=== PATIENT | female | born 1980 | race Caucasian/White ===

== ENCOUNTER → 2018-02-02 10:31 | Outpatient (CLI) | payer OTHER, MEDICAID, SELFPAY ==
[2018-02-02 14:42] LABS: Urine N gonorrhoeae NOT DETECTED
[2018-02-02 15:03] LABS: Urine Chlamydia NOT DETECTED
== END ==
PROVIDERS: Family Provider Physician Assistant; PCP Physician Assistant; Visit Provider Physician Assistant
DX: E03.9 Hypothyroidism, unspecified (principal); F32.9 Major depressive disorder, single episode, unspecified; Z78.9 Other specified health status
CPT/HCPCS: 87491; 87591

== ENCOUNTER 2018-03-06 09:45 | Outpatient (RCR) | payer OTHER, MEDICAID, SELFPAY ==
--- NOTE | 2018-01-23 10:56 | PT.OTN ---
Physical Therapy Treatment Note PT-OP-C Subjective Start: 01/23/18 09:23 Freq: Status: Active Protocol: Activity Type Activity Date Activity User E-Sign Co-Sign Detail Recorded Client Recorded Date Recorded By Document 01/23/18 10:37 [facility] [email or web address] 01/23/18 10:53 [facility] 01/23/18 10:37 OP-PT Subjective [Patient Comments] -Patient Comments Gita reports she has been traveling and is tight in the right upper trapezius region and feels that her tightness wakes her up at night and she needs to reposition her pillow to get comfortable -Patient Reported Progress Worse PT-OP-J Posture/Palpation/Skin Start: 01/23/18 09:23 Freq: Status: Active Protocol: Activity Type Activity Date Activity User E-Sign Co-Sign Detail Recorded Client Recorded Date Recorded By Document 01/23/18 10:37 [facility] [email or web address] 01/23/18 10:53 [facility] 01/23/18 10:37 Posture Evaluation [Position] Standing -Evaluation View Anterior -Shoulder Posture (L) Elevated PT-OP-Q Treatments Start: 01/23/18 09:23 Freq: Status: Active Protocol: Activity Type Activity Date Activity User E-Sign Co-Sign Detail Recorded Client Recorded Date Recorded By Document 01/23/18 10:37 [facility] [email or web address] 01/23/18 10:53 [facility] 01/23/18 10:37 Manual Therapy Treatment [Soft Tissue Mobilization] 1 -Mobilization Type Myofascial Release Strumming Trigger Point Release -Intensity/Depth Moderate -Body Position Prone -Comments STM in both prone and supine working to release the left upper trapezius and medial scapula border. Manual stretching of the scalenes and upper trapezius [Manual Techniques] 1 -Type manual stretching of the scalenes and upper trapzius, suboccipital release -Body Position Supine Self-Care/Home Management Treatment [Education] -Patient Education Posture -Other Education left upper shoulder higher than the right . Education given to work on home stretches to relax the left shoulder PT-OP-T Assessment and Plan Start: 01/23/18 09:23 Freq: Status: Active Protocol: Activity Type Activity Date Activity User E-Sign Co-Sign Detail Recorded Client Recorded Date Recorded By Document 01/23/18 10:37 [facility] [email or web address] 01/23/18 10:53 [facility] 01/23/18 10:37 Physical Therapy Assessment [Impairments] -Impairments Pain Posture ROM Soft Tissue Mobility [Assessment Summary] -Assessment Gita had increased tightness in her right upper trapezius today due to travel over 6 hours of driving. She was tight but responded well to treatment today. She is awaiting her MD appointment for further consult of her injury. Physical Therapy Plan [Frequency and Duration] -Frequency of Treatment 1x/Week [Therapeutic Interventions] -Therapeutic Interventions Home Exercise Program Manual Therapy Neuromuscular Re-education Patient/ Caregiver Education Self-Care/Home Management Soft Tissue Mobilization Therapeutic Exercises -Modalities Hot Packs Traction- Mechanical Ultrasound [Next Visit Focus/Plan] -Next Visit Plan focus on pain relief, postural education and relaxation of the upper trapezius and scalenes on the left while Gita awaits her MD visit. Current Diagnoses Cervicalgia (01/23/18)
--- NOTE | 2018-01-23 11:34 | PT.OTN ---
Addendum entered and electronically signed by Noy Tran, PT 01/23/18 15:22: Transition note: On January 23, 2018 our therapy services consisting of Speech, Occupational, and Physical Therapy transitioned from the [employer] electronic documentation system to a new [employer] electronic documentation system.?? All documentation prior to January 23 can be found under [employer] saved data. From January 23 forward all medical record documentation will be in [email or web address]. Original Note: Physical Therapy Treatment Note PT-OP-C Subjective Start: 01/23/18 09:23 Freq: Status: Active Protocol: Activity Type Activity Date Activity User E-Sign Co-Sign Detail Recorded Client Recorded Date Recorded By Document 01/23/18 10:37 [facility] [email or web address] 01/23/18 10:53 [facility] 01/23/18 10:37 OP-PT Subjective [Patient Comments] -Patient Comments Gita reports she has been traveling and is tight in the right upper trapezius region and feels that her tightness wakes her up at night and she needs to reposition her pillow to get comfortable -Patient Reported Progress Worse PT-OP-J Posture/Palpation/Skin Start: 01/23/18 09:23 Freq: Status: Active Protocol: Activity Type Activity Date Activity User E-Sign Co-Sign Detail Recorded Client Recorded Date Recorded By Document 01/23/18 10:37 [facility] [email or web address] 01/23/18 10:53 [facility] 01/23/18 10:37 Posture Evaluation [Position] Standing -Evaluation View Anterior -Shoulder Posture (L) Elevated PT-OP-Q Treatments Start: 01/23/18 09:23 Freq: Status: Active Protocol: Activity Type Activity Date Activity User E-Sign Co-Sign Detail Recorded Client Recorded Date Recorded By Document 01/23/18 10:37 [facility] [email or web address] 01/23/18 10:53 [facility] 01/23/18 10:37 Manual Therapy Treatment [Soft Tissue Mobilization] 1 -Mobilization Type Myofascial Release Strumming Trigger Point Release -Intensity/Depth Moderate -Body Position Prone -Comments STM in both prone and supine working to release the left upper trapezius and medial scapula border. Manual stretching of the scalenes and upper trapezius [Manual Techniques] 1 -Type manual stretching of the scalenes and upper trapzius, suboccipital release -Body Position Supine Self-Care/Home Management Treatment [Education] -Patient Education Posture -Other Education left upper shoulder higher than the right . Education given to work on home stretches to relax the left shoulder PT-OP-R Modalities Start: 01/23/18 09:23 Freq: Status: Active Protocol: Activity Type Activity Date Activity User E-Sign Co-Sign Detail Recorded Client Recorded Date Recorded By Document 01/23/18 10:37 [facility] [email or web address] 01/23/18 11:25 [facility] 01/23/18 10:37 Spinal Traction [Traction Treatment] Cervical -Method Mechanical Static -Patient Position Supine -Force Applied (newtons) 15 -Duration of Treatment (15-30 minutes 15 ) -Heating Pad Applied Yes Ultrasound Therapy [Treatment] Left Neck -Treatment Duration (minutes) 8 -Patient Position Prone -Coupling Medium Ultrasound Gel -Frequency Setting (mHz) 1 -Mode Setting Continuous -Intensity Setting (w/cm2) 1.5 -Patient Tolerance Good PT-OP-T Assessment and Plan Start: 01/23/18 09:23 Freq: Status: Active Protocol: Activity Type Activity Date Activity User E-Sign Co-Sign Detail Recorded Client Recorded Date Recorded By Document 01/23/18 10:37 [facility] [email or web address] 01/23/18 10:53 [facility] 01/23/18 10:37 Physical Therapy Assessment [Impairments] -Impairments Pain Posture ROM Soft Tissue Mobility [Assessment Summary] -Assessment Gita had increased tightness in her right upper trapezius today due to travel over 6 hours of driving. She was tight but responded well to treatment today. She is awaiting her MD appointment for further consult of her injury. Physical Therapy Plan [Frequency and Duration] -Frequency of Treatment 1x/Week [Therapeutic Interventions] -Therapeutic Interventions Home Exercise Program Manual Therapy Neuromuscular Re-education Patient/ Caregiver Education Self-Care/Home Management Soft Tissue Mobilization Therapeutic Exercises -Modalities Hot Packs Traction- Mechanical Ultrasound [Next Visit Focus/Plan] -Next Visit Plan focus on pain relief, postural education and relaxation of the upper trapezius and scalenes on the left while Gita awaits her MD visit. Current Diagnoses Cervicalgia (01/23/18)
--- NOTE | 2018-02-12 08:53 | PT.OTN ---
Current Diagnoses Cervicalgia (02/09/18) Physical Therapy Treatment Note PT-OP-A Visit Information Start: 01/23/18 09:23 Freq: Status: Active Protocol: Document 02/09/18 09:45 AMB (Rec: 02/12/18 07:16 AMB [email or web address]) Out-Patient Physical Therapy Visit Information Visit Information Visit Type Progress Note Visit Note 9 visits in this case were in 2017. Pt allowed 24 visits per calendar year. Visit Start Time 09:45 Visit Stop Time 10:40 Total Visit Minutes 55 Visit Number 22 Evaluation Information Evaluation Date 07/19/17 PT-OP-C Subjective Start: 01/23/18 09:23 Freq: Status: Active Protocol: Document 02/09/18 09:45 AMB (Rec: 02/12/18 08:50 AMB [email or web address]) OP-PT Subjective Patient Comments Patient Comments Pt finds traction very helpful , continues to have pain mostly right sided throughout cervical spine. PT-OP-J Posture/Palpation/Skin Start: 01/23/18 09:23 Freq: Status: Active Protocol: Document 01/23/18 10:37 [facility] (Rec: 01/23/18 10:53 [facility] [email or web address]) Posture Evaluation Position Standing Evaluation View Anterior Shoulder Posture (L) Elevated PT-OP-K Range of Motion Start: 01/23/18 09:23 Freq: Status: Active Protocol: Document 02/09/18 09:45 AMB (Rec: 02/12/18 08:50 AMB [email or web address]) Cervical Spine Range of Motion Cervical Spine Active Degrees Testing Position Sitting Flexion 40 Extension 54 Rotation Left 70 Rotation Right 70 Lateral Flexion Left 40 Lateral Flexion Right 35 Comments Right sided cervical pain with left cervical rotation PT-OP-Q Treatments Start: 01/23/18 09:23 Freq: Status: Active Protocol: Document 02/09/18 09:45 AMB (Rec: 02/12/18 08:50 AMB [email or web address]) Therapeutic Exercises Sitting Exercises 1 Sitting Exercise Name cervical flexion stretch Reps/Minutes 30 sec x 2 Manual Therapy Treatment Soft Tissue Mobilization 1 Mobilization Type Myofascial Release Strumming Trigger Point Release Intensity/Depth Moderate Body Position Supine Comments STM in both prone and supine working to release the left and right upper trapezius, levator scapulae and suboccipitals. Manual stretching of the scalenes and upper trapezius PT-OP-R Modalities Start: 01/23/18 09:23 Freq: Status: Active Protocol: Document 02/09/18 09:45 AMB (Rec: 02/12/18 07:30 AMB [email or web address]) Spinal Traction Traction Treatment Cervical Method Mechanical Static Patient Position Supine Force Applied (newtons) 15 Duration of Treatment (Minutes) 15 Heating Pad Applied Yes PT-OP-T Assessment and Plan Start: 01/23/18 09:23 Freq: Status: Active Protocol: Document 02/09/18 09:45 AMB (Rec: 02/12/18 07:28 AMB [email or web address]) Physical Therapy Assessment Goals 3 Impairment Posture Short Term Goal (STG) The patient will note reduction of headache frequency to 1x/week. STG Duration 4 weeks Negative Retoucher Goal (LTG) The patient will sit with good posture for 1 hour without an increase in neck pain. LTG Duration 8 weeks 2 Impairment Pain Short Term Goal (STG) The patient will sleep through the night without being woken secondary to pain. STG Duration 4 weeks Negative Retoucher Goal (LTG) The patietn will bike for 30 minutes wit neck pain of 3/10. LTG Duration 8 weeks 1 Impairment Range of motion Short Term Goal (STG) The patient will be independent with a HEP. STG Duration 4 weeks Negative Retoucher Goal (LTG) The patient show increased AROM to active flexion and extension to 60 degrees and active rotation to 70 degrees bilaterally. LTG Duration 8 weeks Progress Towards Goals Progress Towards Goals Progressing Toward Goals Assessment Summary Assessment The patient has been seen for 4 appointments in the last 2 months. She is hoping to see an orthopedic PA regarding her imaging results, and has that scheduled. She continues to have pain and tightness in her cervical spine, but her active range of motion was improved today. She will benefit from continued PT over the next few weeks to help the previously outlined goals, and then we will progress from there depending on her plan with the orthopedic group that she will be seeing. Physical Therapy Plan Frequency and Duration Frequency of Treatment 1x/Week Duration of Treatment 8 weeks Plan of Care Start Date 02/09/18 Plan of Care End Date 04/06/18 Therapeutic Interventions Therapeutic Interventions Aquatic Therapy Home Exercise Program Joint Mobilizations Manual Therapy Neuromuscular Re-education Self-Care/Home Management Therapeutic Activities Therapeutic Exercises Modalities Electric Stimulation Hot Packs Traction- Mechanical Ultrasound
--- NOTE | 2018-02-12 08:54 | PT.OPPOC ---
Current Diagnoses Cervicalgia (02/09/18) Provider Visit Care Team Role Provider Type Merline Garcia PA-C Attending Provider Advanced Practioner Clinician Family Provider Primary Care Provider Specialty: Family Practice Address: [address] [place] [address], [facility] Email: [email or web address] Plan Of Care PT-OP-T Assessment and Plan Start: 01/23/18 09:23 Freq: Status: Active Protocol: Document 02/09/18 09:45 AMB (Rec: 02/12/18 07:28 AMB [email or web address]) Physical Therapy Assessment Goals 3 Impairment Posture Short Term Goal (STG) The patient will note reduction of headache frequency to 1x/week. STG Duration 4 weeks Grocery Caddy Goal (LTG) The patient will sit with good posture for 1 hour without an increase in neck pain. LTG Duration 8 weeks 2 Impairment Pain Short Term Goal (STG) The patient will sleep through the night without being woken secondary to pain. STG Duration 4 weeks Grocery Caddy Goal (LTG) The patietn will bike for 30 minutes wit neck pain of 3/10. LTG Duration 8 weeks 1 Impairment Range of motion Short Term Goal (STG) The patient will be independent with a HEP. STG Duration 4 weeks Grocery Caddy Goal (LTG) The patient show increased AROM to active flexion and extension to 60 degrees and active rotation to 70 degrees bilaterally. LTG Duration 8 weeks Progress Towards Goals Progress Towards Goals Progressing Toward Goals Assessment Summary Assessment The patient has been seen for 4 appointments in the last 2 months. She is hoping to see an orthopedic PA regarding her imaging results, and has that scheduled. She continues to have pain and tightness in her cervical spine, but her active range of motion was improved today. She will benefit from continued PT over the next few weeks to help the previously outlined goals, and then we will progress from there depending on her plan with the orthopedic group that she will be seeing. Physical Therapy Plan Frequency and Duration Frequency of Treatment 1x/Week Duration of Treatment 8 weeks Plan of Care Start Date 02/09/18 Plan of Care End Date 04/06/18 Therapeutic Interventions Therapeutic Interventions Aquatic Therapy Home Exercise Program Joint Mobilizations Manual Therapy Neuromuscular Re-education Self-Care/Home Management Therapeutic Activities Therapeutic Exercises Modalities Electric Stimulation Hot Packs Traction- Mechanical Ultrasound Plan of Care Dates Plan of Care Start Date 02/09/18 Plan of Care End Date 04/06/18 Please Sign and Return: I have reviewed this Plan of Care and certify that the skilled therapy services above are required to meet the patient???s needs. Physician Signature Date Printed Name and Credentials
--- NOTE | 2018-02-22 15:50 | PT.OTN ---
Current Diagnoses Cervicalgia (02/22/18) Physical Therapy Treatment Note PT-OP-A Visit Information Start: 01/23/18 09:23 Freq: Status: Active Protocol: Document 02/22/18 15:42 [facility] (Rec: 02/22/18 15:50 [facility] [email or web address]) Out-Patient Physical Therapy Visit Information Visit Information Visit Type Treatment Note Visit Start Time 09:45 Visit Stop Time 10:45 Total Visit Minutes 60 Visit Number 22 PT-OP-C Subjective Start: 01/23/18 09:23 Freq: Status: Active Protocol: Document 02/09/18 09:45 AMB (Rec: 02/12/18 08:50 AMB [email or web address]) OP-PT Subjective Patient Comments Patient Comments Pt finds traction very helpful , continues to have pain mostly right sided throughout cervical spine. PT-OP-J Posture/Palpation/Skin Start: 01/23/18 09:23 Freq: Status: Active Protocol: Document 01/23/18 10:37 [facility] (Rec: 01/23/18 10:53 [facility] [email or web address]) Posture Evaluation Position Standing Evaluation View Anterior Shoulder Posture (L) Elevated PT-OP-K Range of Motion Start: 01/23/18 09:23 Freq: Status: Active Protocol: Document 02/09/18 09:45 AMB (Rec: 02/12/18 08:50 AMB [email or web address]) Cervical Spine Range of Motion Cervical Spine Active Degrees Testing Position Sitting Flexion 40 Extension 54 Rotation Left 70 Rotation Right 70 Lateral Flexion Left 40 Lateral Flexion Right 35 Comments Right sided cervical pain with left cervical rotation PT-OP-Q Treatments Start: 01/23/18 09:23 Freq: Status: Active Protocol: Document 02/09/18 09:45 AMB (Rec: 02/12/18 08:50 AMB [email or web address]) Therapeutic Exercises Sitting Exercises 1 Sitting Exercise Name cervical flexion stretch Reps/Minutes 30 sec x 2 Manual Therapy Treatment Soft Tissue Mobilization 1 Mobilization Type Myofascial Release Strumming Trigger Point Release Intensity/Depth Moderate Body Position Supine Comments STM in both prone and supine working to release the left and right upper trapezius, levator scapulae and suboccipitals. Manual stretching of the scalenes and upper trapezius PT-OP-R Modalities Start: 01/23/18 09:23 Freq: Status: Active Protocol: Document 02/09/18 09:45 AMB (Rec: 02/12/18 07:30 AMB [email or web address]) Spinal Traction Traction Treatment Cervical Method Mechanical Static Patient Position Supine Force Applied (Pounds) 15 Duration of Treatment (Minutes) 15 Heating Pad Applied Yes PT-OP-T Assessment and Plan Start: 01/23/18 09:23 Freq: Status: Active Protocol: Document 02/22/18 15:42 [facility] (Rec: 02/22/18 15:50 [facility] [email or web address]) Physical Therapy Assessment Assessment Summary Assessment Gita has a appointment March 05 with a ortho [facility]IS[facility] reganding imaging results. She does get relief with PT as she continues to have pain and tightness in her cervical spine Physical Therapy Plan Therapeutic Interventions Therapeutic Interventions Aquatic Therapy Home Exercise Program Joint Mobilizations Manual Therapy Neuromuscular Re-education Self-Care/Home Management Therapeutic Activities Therapeutic Exercises Modalities Electric Stimulation Hot Packs Traction- Mechanical Ultrasound Next Visit Focus/Plan Next Visit Plan reassess next visit following Gita's appointment with the ortho [facility] Please Sign and Return: I have reviewed this Plan of Care and certify that the skilled therapy services above are required to meet the patient?s needs. Physician Signature Date Printed Name and Credentials Clinical Instructor Signature Printed Name and Credentials
--- NOTE | 2018-03-06 11:48 | PT.OTN ---
Current Diagnoses Cervicalgia (03/06/18) Physical Therapy Treatment Note PT-OP-A Visit Information Start: 01/23/18 09:23 Freq: Status: Active Protocol: Document 03/06/18 11:41 [facility] (Rec: 03/06/18 11:48 [facility] [email or web address]) Out-Patient Physical Therapy Visit Information Visit Information Visit Type Treatment Note Visit Start Time 09:45 Visit Stop Time 10:45 Total Visit Minutes 60 Visit Number 24 PT-OP-C Subjective Start: 01/23/18 09:23 Freq: Status: Active Protocol: Document 03/06/18 11:41 [facility] (Rec: 03/06/18 11:48 [facility] [email or web address]) OP-PT Subjective Patient Comments Patient Comments Gita reports she saw Stalin PERALES and will be scheduled for cortisone injection in her cervical spine PT-OP-J Posture/Palpation/Skin Start: 01/23/18 09:23 Freq: Status: Active Protocol: Document 01/23/18 10:37 [facility] (Rec: 01/23/18 10:53 [facility] [email or web address]) Posture Evaluation Position Standing Evaluation View Anterior Shoulder Posture (L) Elevated PT-OP-K Range of Motion Start: 01/23/18 09:23 Freq: Status: Active Protocol: Document 02/09/18 09:45 AMB (Rec: 02/12/18 08:50 AMB [email or web address]) Cervical Spine Range of Motion Cervical Spine Active Degrees Testing Position Sitting Flexion 40 Extension 54 Rotation Left 70 Rotation Right 70 Lateral Flexion Left 40 Lateral Flexion Right 35 Comments Right sided cervical pain with left cervical rotation PT-OP-Q Treatments Start: 01/23/18 09:23 Freq: Status: Active Protocol: Document 03/06/18 11:41 [facility] (Rec: 03/06/18 11:48 [facility] [email or web address]) Manual Therapy Treatment Soft Tissue Mobilization 1 Mobilization Type Myofascial Release Strumming Trigger Point Release Intensity/Depth Moderate Body Position Supine Comments STM in both prone and supine working to release the left and right upper trapezius, levator scapulae and suboccipitals. Manual stretching of the scalenes and upper trapezius PT-OP-R Modalities Start: 01/23/18 09:23 Freq: Status: Active Protocol: Document 03/06/18 11:41 [facility] (Rec: 03/06/18 11:48 [facility] [email or web address]) Spinal Traction Traction Treatment Cervical Method Mechanical Static Patient Position Supine Force Applied (Pounds) 15 Duration of Treatment (Minutes) 15 Heating Pad Applied Yes Ultrasound Therapy Treatment Left Neck Treatment Duration (minutes) 8 Patient Position Prone Coupling Medium Ultrasound Gel Frequency Setting (mHz) 1 Mode Setting Continuous Intensity Setting (w/cm2) 1.5 PT-OP-T Assessment and Plan Start: 01/23/18 09:23 Freq: Status: Active Protocol: Document 03/06/18 11:41 [facility] (Rec: 03/06/18 11:48 [facility] [email or web address]) Physical Therapy Assessment Assessment Summary Assessment Gita will put her appointments on hold as she has a new job. She will follow up with us after her cortisone injection if she would like further PT Physical Therapy Plan Frequency and Duration Frequency of Treatment 1x/Week Duration of Treatment 8 weeks Plan of Care Start Date 02/09/18 Plan of Care End Date 04/06/18 Therapeutic Interventions Therapeutic Interventions Aquatic Therapy Home Exercise Program Joint Mobilizations Manual Therapy Neuromuscular Re-education Self-Care/Home Management Therapeutic Activities Therapeutic Exercises Modalities Electric Stimulation Hot Packs Traction- Mechanical Ultrasound Next Visit Focus/Plan Next Visit Plan reassess Gita's cervical spine following her cortisone injections Please Sign and Return: I have reviewed this Plan of Care and certify that the skilled therapy services above are required to meet the patient?s needs. Physician Signature Date Printed Name and Credentials Clinical Instructor Signature Printed Name and Credentials
--- NOTE | 2018-10-02 10:20 | PT.OPDS ---
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 Primary Care Provider Specialty: Family Practice Address: [address] [place] [address], [facility] Email: [email or web address] Visit Number Visit Number [id number] Discharge Summary PT-OP-C Subjective Start: 01/23/18 09:23 Freq: Status: Active Protocol: Document 03/06/18 11:41 AMH (Rec: 03/06/18 11:48 AMH [email or web address]) OP-PT Subjective Patient Comments Patient Comments Gita reports she saw Stalin PERALES and will be scheduled for cortisone injection in her cervical spine PT-OP-J Posture/Palpation/Skin Start: 01/23/18 09:23 Freq: Status: Active Protocol: Document 01/23/18 10:37 AMH (Rec: 01/23/18 10:53 AMH [email or web address]) Posture Evaluation Position Standing Evaluation View Anterior Shoulder Posture (L) Elevated PT-OP-K Range of Motion Start: 01/23/18 09:23 Freq: Status: Active Protocol: Document 02/09/18 09:45 AMB (Rec: 02/12/18 08:50 AMB [email or web address]) Cervical Spine Range of Motion Cervical Spine Active Degrees Testing Position Sitting Flexion 40 Extension 54 Rotation Left 70 Rotation Right 70 Lateral Flexion Left 40 Lateral Flexion Right 35 Comments Right sided cervical pain with left cervical rotation PT-OP-T Assessment and Plan Start: 01/23/18 09:23 Freq: Status: Active Protocol: Document 10/02/18 10:13 AMB (Rec: 10/02/18 10:13 AMB [email or web address]) Physical Therapy Assessment Assessment Summary Assessment Gita has not been seen in PT since March 06, 2018. Therefore she is discharged. At the time of her last visit she was getting relief from PT but continued to have neck pain. Physical Therapy Plan Discharge Physical Therapy Discharge Reasons No Longer Attending PT
== END 2018-11-14 09:02 ==
LOC: PHYS 09:45
PROVIDERS: Family Provider Physician Assistant; PCP Physician Assistant; Visit Provider Physician Assistant
DX: M54.2 Cervicalgia (principal)
CPT/HCPCS: 97012; 97035; 97140

== ENCOUNTER → 2018-03-06 14:17 | Outpatient (CLI) | payer OTHER, MEDICAID, SELFPAY ==
--- NOTE | 2018-03-06 14:20 | DI.MG.S_ITS ---
UNILATERAL LEFT DIGITAL DIAGNOSTIC MAMMOGRAM 3D/2D WITH ADDITIONAL VIEWS: 03/06/2018 CLINICAL: Patient returns for a 6 month follow up of the left breast. Post biopsy. Comparison is made to exams dated: 08/10/2017 mammogram and 07/24/2017 mammogram - [facility]. The tissue of the left breast is extremely dense, which lowers the sensitivity of mammography. There is a stable 9 mm oval equal density mass with a circumscribed margin in the left breast at 9 o'clock anterior depth. No other significant masses or calcifications are seen in the breast. IMPRESSION: PROBABLY BENIGN The stable 9 mm oval equal density mass in the left breast is probably benign. A follow-up mammogram in 6 months is recommended. Recommend ultrasound of the patient's further masses seen on ultrasound only on her previous study. This exam was interpreted at Station ID: [id number]. NOTE: For mammograms, a report in lay terms will be sent to the patient. Approximately 15% of breast malignancies will not be visualized mammographically. In the management of a palpable breast mass, a negative mammogram must not discourage biopsy of a clinically suspicious lesion. Electronically Signed By: Chicho Moss M.D. cj/:03/07/2018 08:01:09 Entry: - 03/07/2018 08:01:09 letter sent: Need Ultrasound ACR BI-RADS Category 3: Probably benign [id number]
== END ==
PROVIDERS: Family Provider Physician Assistant; PCP Physician Assistant; Visit Provider Physician Assistant
DX: R92.8 Other abnormal and inconclusive findings on diagnostic imaging of breast (principal); N63.20 Unspecified lump in the left breast, unspecified quadrant
CPT/HCPCS: 77065; G0279

== ENCOUNTER → 2018-03-09 07:53 | Outpatient (CLI) | payer OTHER, MEDICAID, SELFPAY ==
--- NOTE | 2018-03-09 | DI.US.S_ITS ---
ULTRASOUND OF LEFT BREAST: 03/09/2018 CLINICAL: Patient returns for a 6 month follow up of the left breast. Comparison is made to exams dated: 07/27/2017 ultrasound, 03/06/2018 mammogram, 08/10/2017 ultrasound biopsy, and 08/10/2017 mammogram - [facility]. Color flow ultrasound of the left breast was performed. Macias scale images of the real-time examination were reviewed. There is a 1.3 cm x 0.5 cm x 1.1 cm irregular mass with a circumscribed margin in the left breast at 12 o'clock middle depth 4 cm from the nipple. This irregular mass is hypoechoic. This abnormality is not significantly changed. There also is a 6 mm oval mass with a circumscribed margin in the left breast central to the nipple in the retroareolar region. This oval mass is hypoechoic. This abnormality is not significantly changed. Additionally, there is an 8 mm oval mass with a circumscribed margin in the left breast at 12 o'clock in the retroareolar region. This oval mass is hypoechoic. This abnormality is not significantly changed. IMPRESSION: PROBABLY BENIGN - FOLLOW-UP RECOMMENDED The 1.3 cm x 0.5 cm x 1.1 cm irregular mass in the left breast at 12 o'clock middle depth is probably benign. Follow-up mammogram and ultrasound in 6 months is recommended. The 6 mm oval mass in the left breast central to the nipple in the retroareolar region is probably benign. Follow-up mammogram and ultrasound in 6 months is recommended. The 8 mm oval mass in the left breast at 12 o'clock in the retroareolar region is probably benign. Follow-up mammogram and ultrasound in 6 months is recommended. A follow-up mammogram and an ultrasound in 6 months is recommended to demonstrate stability. This exam was interpreted at Station ID: [id number]. Electronically Signed By: Chicho escalante/lalo:03/09/2018 12:11:39 letter sent: Followup Recommended Ultrasound BI-RADS: 3 Probably benign
== END ==
PROVIDERS: Family Provider Physician Assistant; PCP Physician Assistant; Visit Provider Physician Assistant
DX: R92.8 Other abnormal and inconclusive findings on diagnostic imaging of breast (principal); N63.21 Unspecified lump in the left breast, upper outer quadrant
CPT/HCPCS: 76642

== ENCOUNTER → 2018-07-12 11:37 | Outpatient (CLI) | payer OTHER, MEDICAID, SELFPAY ==
[2018-07-12 14:16] LABS: Urine N gonorrhoeae NOT DETECTED
[2018-07-12 14:21] LABS: Urine Chlamydia NOT DETECTED
== END ==
PROVIDERS: Visit Provider Physician Assistant
DX: N89.8 Other specified noninflammatory disorders of vagina (principal); N94.9 Unspecified condition associated with female genital organs and menstrual cycle
CPT/HCPCS: 87210; 87491; 87591

== ENCOUNTER → 2018-07-27 16:42 | Outpatient (CLI) | payer OTHER, MEDICAID, SELFPAY ==
[2018-07-27 17:53] LABS: Hemoglobin 11.7 g/dL (12.0-16.0); Mean Corpuscular HGB Conc 33.6 % (30-36); Mean Corpuscular Hemoglobin 30.5 PG (26-34); Mean Corpuscular Volume 90.8 fL (80-100); Platelet Count 280 X10^3/uL (150-400); Red Blood Cell Count 3.85 X10^6/uL (4.0-5.2); Red Cell Distribution Width 13.9 % (11.6-14.8); White Blood Cell Count 4.8 X10^3/uL (4.5-11.0)
[2018-07-27 18:07] LABS: Alanine Aminotransferase 18 IU/L (9-52); Albumin 4.6 g/dL (3.5-5.0); Albumin Globulin Ratio 1.8 (1.0-2.8); Alkaline Phosphatase 44 U/L (38-126); Aspartate Aminotransferase 19 IU/L (14-36); BUN Creatinine Ratio 16.7 (6-22); Bilirubin Total 0.3 mg/dL (0.2-1.3); Blood Urea Nitrogen 10 mg/dL (7-17); Calcium 9.6 mg/dL (8.4-10.2); Carbon Dioxide 27 mmol/L (22-32); Chloride 101 mmol/L (98-107); Estimated Glomerular Filt Rate > 60.0 mL/min (>60); Globulin 2.6 g/dL (1.7-4.1); Glucose 81 mg/dL (70-100); HEMOLYSIS < 15 (0-50); Potassium 4.1 mmol/L (3.4-5.1); Sodium 143 mmol/L (137-145); Total Protein 7.2 g/dL (6.3-8.2)
[2018-07-27 18:24] LABS: Free T4, Direct Thyroxine 0.92 ng/dL (0.78-2.19)
[2018-07-27 18:25] LABS: Vitamin D 25 Hydroxy (D3) 35.4 ng/mL (30.0-100.0)
[2018-07-27 18:38] LABS: Thyroid Stimulating Hormone 0.26 uIU/mL (0.47-4.68)
[2018-07-27 18:40] LABS: Hepatitis B Surface Antigen NEGATIVE s/c (NEGATIVE)
[2018-07-27 18:42] LABS: Ferritin 30.4 ng/mL (6.27-137)
[2018-07-27 18:58] LABS: HIV 1 and 2 Antibody NEGATIVE (NEGATIVE); Hep C Virus Ab w/Reflex Quant NEGATIVE s/c (NEGATIVE)
[2018-07-31 14:59] LABS: Hepatitis B Core Antibody Nonreactive (Nonreactive)
[2018-07-31 15:01] LABS: Hepatitis B Surf Ab Qualitativ Nonreactive (Nonreactive)
== END ==
DX: Z11.3 Encounter for screening for infections with a predominantly sexual mode of transmission (principal); E55.9 Vitamin D deficiency, unspecified
CPT/HCPCS: 36415; 80053; 82306; 82728; 84439; 84443; 85027; 86703; 86704; 86706; 86803; 87340

== ENCOUNTER → 2018-10-16 16:40 | Outpatient (CLI) | payer OTHER, MEDICAID, SELFPAY | PROVIDERS: Visit Provider Physician Assistant | DX: N89.8 Other specified noninflammatory disorders of vagina (principal) | CPT/HCPCS: 87086; 87210 ==

== ENCOUNTER → 2018-10-24 14:09 | Outpatient (CLI) | payer OTHER, MEDICAID, SELFPAY ==
--- NOTE | 2018-10-24 | DI.MG.S_ITS ---
BILATERAL DIGITAL DIAGNOSTIC MAMMOGRAM 3D/2D: 10/24/2018 CLINICAL: Patient returns for a 6 month follow up of the left breast. Due for bilateral imaging. Comparison is made to exams dated: 03/06/2018 mammogram, 08/10/2017 mammogram, and 07/24/2017 mammogram - [facility]. The tissue of both breasts is extremely dense, which lowers the sensitivity of mammography. There is a stable focal asymmetry in the left breast at 9 o'clock anterior depth. No other significant masses, calcifications, or other findings are seen in either breast. IMPRESSION: INCOMPLETE: NEEDS ADDITIONAL IMAGING EVALUATION The stable focal asymmetry in the left breast is indeterminate. A targeted ultrasound of the left breast is recommended and will be performed immediately following this exam. This exam was interpreted at Station ID: [id number]. NOTE: For mammograms, a report in lay terms will be sent to the patient. Approximately 15% of breast malignancies will not be visualized mammographically. In the management of a palpable breast mass, a negative mammogram must not discourage biopsy of a clinically suspicious lesion. Electronically Signed By: Fabiana James M.D. lk/:10/24/2018 14:55:00 letter sent: Additional Imaging Needed ACR BI-RADS Category 0: Incomplete [id number]
--- NOTE | 2018-10-24 | DI.US.S_ITS ---
ULTRASOUND OF LEFT BREAST: 10/24/2018 CLINICAL: 6 month follow-up of left breast masses. Comparison is made to exams dated: 10/24/2018 mammogram, 03/09/2018 ultrasound, 03/06/2018 mammogram, 08/10/2017 ultrasound biopsy, 08/10/2017 mammogram, and 07/27/2017 ultrasound [facility]. Color flow ultrasound of the left breast was performed on the areas of interest. Macias scale images of the real-time examination were reviewed. There are multiple hypodense circumscribed lobulated mass lesions within the left breast includin. A 1.0 x 0.5 x 1.0 cm lobulated hypoechoic mass at 12:00, 4 cm from the nipple. This measured 1.3 x 0.5 x 1.1 cm on the prior study dated 03/09/18. 2. A 0.8 x 0.4 x 0.8 cm mass at 12:00 in the retroareolar region. This measured 6 mm in diameter on the prior study. 3. A 1.1 x 0.5 x 0.8 cm hypoechoic lobulated mass in the retroareolar region which measured 8 mm on the prior study. 4. An anechoic 0.8 x 0.4 x 0.6 cm mass in the retroareolar region which was not visualized on the prior study and likely represents a simple cyst. 5. A 0.9 x 0.4 x 0.6 cm mass in the left breast at 9:00, not visualized on the prior ultrasound. This likely represents the mammographic abnormality which is stable when compared with the prior mammogram dated 03/06/18. 6. A 0.9 x 0.2 x 0.5 cm hypoechoic lobulated mass at 9:00 4 cm from the nipple. This area was not interrogated on the prior study. IMPRESSION: PROBABLY BENIGN 1. Multiple hypoechoic lobulated mass lesions as described above, some of which are slightly decreased in size when compared with the prior ultrasound dated 03/09/18, some of which were previously not characterized by ultrasound, and one of which likely corresponds with the mammographic finding. These have the sonographic appearance of fibroadenomas. Additionally, 2 of these masses have been previously biopsied and pathology demonstrated benign fibroadenomas. 6 month followup ultrasound is recommended to ensure stability of these findings. 2. Simple cyst in the retroareolar region which is benign. This exam was interpreted at Station ID: [id number]. Electronically Signed By: Fabiana James M.D. lk/:10/24/2018 16:46:01 letter sent: Followup Recommended Ultrasound BI-RADS: 3 Probably benign
== END ==
PROVIDERS: Visit Provider Psychiatry & Neurology Neurology
DX: R92.8 Other abnormal and inconclusive findings on diagnostic imaging of breast (principal); N64.4 Mastodynia; D24.2 Benign neoplasm of left breast; N60.02 Solitary cyst of left breast; N63.20 Unspecified lump in the left breast, unspecified quadrant
CPT/HCPCS: 76642; 77066; G0279

== ENCOUNTER → 2019-03-08 15:04 | Outpatient (CLI) | payer OTHER, MEDICAID, SELFPAY ==
[2019-03-08 19:07] LABS: Urine N gonorrhoeae NOT DETECTED
[2019-03-08 19:09] LABS: Urine Chlamydia NOT DETECTED
== END ==
PROVIDERS: PCP Nurse Practitioner; Visit Provider Physician Assistant
DX: R30.0 Dysuria (principal); Z20.2 Contact with and (suspected) exposure to infections with a predominantly sexual mode of transmission
CPT/HCPCS: 87210; 87491; 87591

== ENCOUNTER 2019-04-03 10:17 | Emergency (ER) | payer OTHER, MEDICAID, SELFPAY ==
[2019-04-03 10:18] VITALS: BP 122/76; PULSE 80; RESP 16; TEMP 37.1; O2SAT 100
--- NOTE | 2019-04-03 10:45 | ED.HA ---
HPI - Headache General Chief Complaint: Headache Stated Complaint: Hit head on monday, pressure and headaches Time Seen by Provider: 04/03/19 10:25 Source: patient Mode of arrival: ambulatory Limitations: no limitations History of Present Illness HPI Narrative: This is a 38-year-old female who comes to the emergency department with complaint of hitting her head on Monday. She states that a box field with books in her storage area, she was trying to move it and it hit her on the left side of the and then slid down hit her left thigh landed on the floor. She states it did hurt a little bit, she felt a little dazed, little story. She did not lose consciousness. She has not had any syncopal episodes. Since then she has had some mild headaches, she has had little bit discomfort and swelling on the left parietal area. Today she was putting on her glasses and felt the arm of her glasses brushing against the hematoma a cause discomfort so she felt she should come in. Patient has not had any major vision changes. She sometimes feels like it is a little blurry. She has only felt nauseated when she wakes up and feels like she needs to eat. She eats food she does not feel nauseated, she has not had any vomiting. She denies any neck pain, no chest pain no shortness of breath. Other symptoms. She does have small bruise on her right leg. Patient states she is otherwise healthy, she takes Topamax and fluoxetine for depression she is not on any blood thinners. No prior surgeries. She has felt very tired been sleeping more than normal. That has felt a little bit fatigued. Related Data Home Medications Medication Instructions Recorded Confirmed cyclobenzaprine 10 mg PO TID PRN 04/03/19 04/03/19 fluoxetine 20 mg PO BID 04/03/19 04/03/19 topiramate 12.5 - 25 mg PO QAM 04/03/19 04/03/19 topiramate 50 mg PO BEDTIME 04/03/19 04/03/19 Previous Rx's Medication Instructions Recorded [massage] #12 12/02/16 epinephrine 0.3 mg/0.3 mL 0.3 mg IM PRN PRN #1 ea 03/23/18 injection, auto-injector fluticasone propionate 50 2 spray NASAL DAILY #9.9 gram 03/18/19 mcg/actuation nasal spray,suspension Allergies Allergy/AdvReac Type Severity Reaction Status Date / Time latex [LATEX] Allergy Unknown Verified 04/03/19 10:24 hydrocodone [From Vicodin] Allergy Verified 04/03/19 10:24 SULFA Allergy Unknown Uncoded 07/12/18 11:01 Review of Systems Review of Systems ROS Unobtainable: All systems reviewed & are unremarkable except as noted in HPI and below Constitutional Denies chills, Denies fever(s), Reports headache(s), Reports increased appetite, Denies lethargy, Denies poor appetite and Denies weakness Eyes Reports blurry vision (Very mild) ENT Ears, Nose, Mouth, and Throat: Denies vertigo, Denies dizziness, Reports headache(s) and Denies neck pain Cardiovascular Denies chest pain, Denies syncope, Denies irregular heart rhythm, Denies lightheadedness, Denies palpitations, Denies dyspnea and Denies dyspnea on exertion Respiratory Denies chest congestion, Denies dyspnea and Denies dyspnea on exertion Gastrointestinal Gastrointestinal: Denies abdominal pain, Denies change in bowel habits, Denies diarrhea, Denies nausea and Denies vomiting Genitourinary Denies hematuria, Denies flank pain, Denies urinary incontinence and Denies urinary urgency Musculoskeletal Denies back pain, Denies arthralgias, Denies limited range of motion, Denies neck pain, Denies numbness, Denies tingling and Reports other (small bruise on right leg.) Integumentary/Breasts Denies rash, Denies unusual bruising and Reports other (lump on scalp.) Neurologic Denies vertigo, Denies dizziness, Denies syncope, Reports headache(s), Denies numbness, Denies tingling and Denies weakness Endocrine Denies palpitations [facility] Medical History Anxiety (Chronic Unknown) Bipolar disorder (Chronic ~2012) Depression (Chronic Unknown) Hyperthyroidism (Chronic Unknown) PTSD (post-traumatic stress disorder) (Chronic Unknown) Plantar fasciitis (Chronic 02/2017) Tear meniscus knee (Chronic Unknown) Abnormal Pap smear of cervix (Resolved 2003) Whiplash (Resolved 04/2017) Family History (Updated 03/04/18 @ 11:32 by Shruti Sahni LPN) Grandmother Breast cancer Mother Hypothyroidism Social History Smoking Status: Current some day smoker Social History Smoking Status: Current some day smoker Exam Narrative Exam Narrative: GEN: well nourished, well appearing female, alert and oriented x 3, patient appears to be in no acute distress. HEENT: Atraumatic except for a small 1 cm hematoma on the left parietal scalp. Mildly tender to touch, pupils are equal round reactive to light, extraocular movements are intact, nares are clear, TMs are clear with no fluid, there is no conjunctival pallor. Throat is clear without any exudates, erythema, tonsillar enlargement or uvular deviation HEART: Regular rate and rhythm without murmur, clicks, rubs. No carotid bruits, pulses are equal in upper and lower extremities LUNGS:Lungs clear to auscultation, no wheezes, rales, crackles, chest moves symmetrically ABD:bowel sounds normal, soft, non-tender, no guarding, rebound, rigidity, no masses noted, no hepatosplenomegaly BACK: No cervical, thoracic or lumbar vertebral point tenderness. Patient has normal range of motion. Patient's gait is normal. MSCL: Non-tender, no muscle atrophy, full range of motion, normal gait NEURO:CN 2-12 intact, sensation normal Initial Vital Signs Initial Vital Signs: Vital Signs Temperature 98.8 F 04/03/19 10:18 Pulse Rate 80 04/03/19 10:18 Respiratory Rate 16 04/03/19 10:18 Blood Pressure 122/76 04/03/19 10:18 Pulse Oximetry 100 04/03/19 10:18 Scores GCS [place] coma scale eye opening: Spontaneous Amy coma scale verbal response: Orientated Amy coma scale motor response: Obey commands Amy coma scale total score: 15 Course Vital Signs - 8 hr 04/03/19 11:13 Pulse Rate 80 Respiratory Rate 16 Blood Pressure 114/80 Pulse Oximetry 99 MDM - Headache Lab Data Point of Care Testing Test Results Negative Urine Dip Bedside Urine Glucose Negative Bedside Urine Bilirubin - Negative Bedside Urine Ketone - Negative Urine Specific [place] 1.010 Bedside Urine Occult Blood - Negative Bedside Urine pH 7 Bedside Urine Protein - Negative Bedside Urine Urobilinogen - Negative Bedside Urine Nitrite - Negative Bedside Urine Leukocytes - Negative Esterase MDM Narrative Medical decision making narrative: Patient has a small hematoma and concussion like symptoms. By her description the boxed probably wait in the 30-50 lb range. It probably traveled several inches by the time and hit her head. The patient has been describing concussion symptoms. She had no loss of consciousness and has no other symptoms that are concerning for neurologic change. Concussion protocol given. Discharge Plan Departure Patient Disposition: Home Clinical Impression: Concussion Qualifiers: Encounter type: initial encounter Loss of consciousness presence/duration: without LOC Qualified Code(s): S06.0X0A - Concussion without loss of consciousness, initial encounter Hematoma of left parietal scalp Qualifiers: Encounter type: initial encounter Qualified Code(s): S00.03XA - Contusion of scalp, initial encounter Discharge Date/Time: 04/03/19 11:04 Interventions: ED Discharge Assessment Last Done: 04/03/19 11:13 Instructions: Concussion Activity Restrictions/Additional Instructions: Follow-up with primary care your symptoms are not resolving in 1-2 weeks. You may take ibuprofen and/or Tylenol as needed for any headaches. Make sure staying you are hydrated. Advance activity as tolerated. You may continue home medications as prescribed. Return to the emergency department for fevers greater than 100.4 F, passing out, rapidly worsening or severe headaches sudden vision changes, persistent vomiting, chest pain, shortness of breath, loss of bowel or bladder control, new weakness or numbness or other new or concerning symptoms. Prescriptions: No Action fluticasone propionate [Flonase Allergy Relief] 50 mcg/actuation spray,suspension 2 spray NASAL DAILY Qty: 9.9 RF: 0 [massage] Qty: 12 RF: 0 epinephrine [EpiPen 2-Al] 0.3 mg/0.3 mL auto-injector 0.3 mg IM PRN PRN (Reason: anaphylaxis) Qty: 1 RF: 2 cyclobenzaprine 10 mg tablet 10 mg PO TID PRN (Reason: Spasms) RF: 0 topiramate 25 mg tablet 12.5 - 25 mg PO QAM RF: 0 topiramate 25 mg tablet 50 mg PO BEDTIME RF: 0 fluoxetine 20 mg capsule 20 mg PO BID RF: 0 Referrals: Gita Rodríguez ARNP [Primary Care Provider] -
[2019-04-03 11:13] VITALS: BP 114/80; PULSE 80; RESP 16; O2SAT 99
== END 2019-04-03 11:04 | disposition home or self-care (01) ==
PROVIDERS: Emergency Provider Emergency Medicine; PCP Nurse Practitioner
DX: S06.0X0A Concussion without loss of consciousness, initial encounter (principal); S00.03XA Contusion of scalp, initial encounter; W20.8XXA Other cause of strike by thrown, projected or falling object, initial encounter
CPT/HCPCS: 81003; 81025; 99282

== ENCOUNTER → 2019-04-10 09:26 | Outpatient (CLI) | payer OTHER, MEDICAID, SELFPAY ==
--- NOTE | 2019-04-10 | DI.US.S_ITS ---
ULTRASOUND OF LEFT BREAST: 04/10/2019 CLINICAL: 6 month follow-up of cysts/fibroadenomas. Comparison is made to exams dated: 10/24/2018 ultrasound, 10/24/2018 mammogram, 03/09/2018 ultrasound, 03/06/2018 mammogram, 08/10/2017 ultrasound biopsy, and 08/10/2017 mammogram - [facility]. Color flow and real-time ultrasound of the left breast were performed on the areas of interest. The hypoechoic mass in the left breast at 12:00, 4 cm from the nipple which previously measured 1.0 x 0.5 x 1.0 cm has decreased in size and now measures 0.6 x 0.6 x 0.7 cm. The solid hypoechoic mass in the left breast at 11:30 o'clock which previously measured 0.8 x 0.4 x 0.8 cm has increased in size and now measures 1.1 x 0.7 x 1.2 cm. The hypoechoic mass in the left breast at 12:00 in the subareolar region is no longer visualized. The hypoechoic mass at 4:00 in the subareolar region is no longer visualized. The hypoechoic mass in the left breast at 9:00, 4 cm from the nipple now measures 0.7 x 0.4 x 0.8 cm and has decreased in size from 0.9 x 0.4 x 0.6 cm. There is a stable 3 mm simple cyst in the left breast at 9:00, 4 cm from the nipple. IMPRESSION: SUSPICIOUS OF MALIGNANCY The hypoechoic mass in the left breast at 12:00 is probably benign. Twelve-month followup ultrasound is recommended. The hypoechoic mass in the left breast at 11:30 o'clock has increased in size and is at a low suspicion for malignancy. Ultrasound guided biopsy is recommended. The hypoechoic mass in the left breast at 12:00 in the subareolar region is no longer visualized and is benign. The hypoechoic mass at 4:00 in the subareolar region is no longer visualized and is benign. The hypoechoic mass in the left breast at 9:00 has decreased in size and is probably benign. 12 month follow up ultrasound is recommended. The simple cyst in the left breast at 9:00 is benign. These results were discussed with the patient by the radiologist Dr. Frankie Gillespie at the time of the ultrasound examination. Electronically Signed By: Fabiana James M.D. lk/:04/10/2019 15:43:25 letter sent: Biopsy Required Ultrasound BI-RADS: 4a Suspicious abnormality - low suspicion for malignancy
--- NOTE | 2019-04-10 09:28 | DI.US.S_ITS ---
PROCEDURE: US OB <= 14 WEEKS FETUS INDICATIONS: Dating/Viability OUTSIDE/PRIOR DATING DATA: Last menstrual period (LMP): Unknown. LMP-based estimated date of delivery (MARILOU): Unknown. First dating scan (date and location): None available. Estimated date of delivery (MARILOU) from first dating scan: None available.. TECHNIQUE: Real-time scanning was performed of the fetus and maternal pelvic organs, with image documentation. Endovaginal scanning was also performed to better visualize the fetus and maternal ovaries. COMPARISON: None. FINDINGS: Embryo: No intrauterine gestational sac or pole is seen at this time. Measurement variability in dating: +/- 4 weeks by LMP, +/- 7 days by mean sac diameter (use before 6 weeks gestation if crown-rump length not able to be measured), +/- 5 days by crown-rump length (up to 8 weeks 6 days gestation), +/- 7 days by crown-rump length (up to 13 weeks 6 days gestation). Maternal organs: Uterus measures 9.9 x 5.1 x 6.7 cm in size. Endometrium measures 20.3 mm in thickness and is heterogeneous in echotexture. 1.2 x 0.8 x 1.1 cm intramural fibroid in anterior myometrium is seen. Right ovary measures 3.7 x 2.3 x 2.9 cm in size with suggestion of corpus luteum measures 2.7 x 1.8 x 2 cm seen in right ovary. Left ovary is not definitively seen on this study. IMPRESSION: 1. No evidence of intrauterine gestation is seen at this time. Followup with serial beta-hCG is recommended for evaluation of viability. 2. Small intramural uterine fibroid as above. Possible corpus luteum in right ovary as above. Physiologic amount of free fluid in the pelvis. Dictated by: Frankie Gillespie M.D. on 04/10/2019 at 12:32 Approved by: Frankie Gillespie M.D. on 04/10/2019 at 12:35
== END ==
PROVIDERS: PCP Nurse Practitioner; Visit Provider Nurse Practitioner
DX: O36.80X0 Pregnancy with inconclusive fetal viability, not applicable or unspecified (principal); D25.1 Intramural leiomyoma of uterus; D24.2 Benign neoplasm of left breast; N60.02 Solitary cyst of left breast; N63.22 Unspecified lump in the left breast, upper inner quadrant
CPT/HCPCS: 36415; 76642; 76801; 76817; 84702

== ENCOUNTER → 2019-04-10 16:06 | Outpatient (CLI) | payer OTHER, MEDICAID, SELFPAY ==
[2019-04-10 16:52] LABS: HCG Quantitative /Beta subunit 186.81 mIU/mL
== END ==
PROVIDERS: PCP Nurse Practitioner; Visit Provider Obstetrics & Gynecology
DX: Z32.01 Encounter for pregnancy test, result positive (principal)
CPT/HCPCS: 36415; 84702

== ENCOUNTER → 2019-04-12 10:34 | Outpatient (CLI) | payer OTHER, MEDICAID, SELFPAY ==
[2019-04-12 11:56] LABS: HCG Quantitative /Beta subunit 397.64 mIU/mL
== END ==
PROVIDERS: PCP Nurse Practitioner; Visit Provider Obstetrics & Gynecology
DX: Z32.01 Encounter for pregnancy test, result positive (principal)
CPT/HCPCS: 36415; 84702

== ENCOUNTER 2019-04-26 17:15 | Emergency (ER) | payer OTHER, MEDICAID, SELFPAY ==
[2019-04-26 17:26] VITALS: BP 117/76; PULSE 74; RESP 18; TEMP 36.8; O2SAT 98; BMI 21.9
--- NOTE | 2019-04-26 17:39 | DI.US.S_ITS ---
PROCEDURE: US OB <= 14 WEEKS FETUS INDICATIONS: CRAMPING OUTSIDE/PRIOR DATING DATA: First dating scan (date and location): 04/26/19. Estimated date of delivery (MARILOU) from first dating scan: 12/20/19. TECHNIQUE: Real-time scanning was performed of the fetus and maternal pelvic organs, with image documentation. Endovaginal scanning was also performed to better visualize the fetus and maternal ovaries. COMPARISON: [facility], , OB <= 14 WEEKS FETUS, 04/10/2019, 9:47. FINDINGS: Embryo: Single living intrauterine gestation identified with cardiac activity measuring 115 beats per minute. Estimated gestational age is approximately 6 weeks and 0 days based on crown-rump length measuring 3 mm. There is a small 5 mm hypoechoic focus adjacent to the gestational sac possibly representing a small perigestational hemorrhage. Maternal organs: Ovaries were not visualized. Limited images through the kidneys demonstrate no hydronephrosis. IMPRESSION: 1. Single living intrauterine gestation with an estimated sonographic gestational age of approximately 6 weeks and 0 days based off crown-rump length. Recommend routine second trimester anatomic screening survey. 2. Tiny 5 mm hypoechoic focus adjacent to the gestational sac possibly representing a small perigestational hemorrhage. Dictated by: Christo Maravilla M.D. on 04/26/2019 at 21:18 Approved by: Christo Maravilla M.D. on 04/26/2019 at 21:22
--- NOTE | 2019-04-26 17:40 | DI.US.S_ITS ---
PROCEDURE: US ABDOMEN LIMITED INDICATIONS: RIGHT UPPER QUADRANT PAIN TECHNIQUE: Real-time scanning was performed of the abdominal and retroperitoneal organs, with image documentation. COMPARISON: None. FINDINGS: Liver: Liver is normal in size and homogeneous in echotexture. Gallbladder: The gallbladder is unremarkable in appearance without evidence for gallstones, wall thickening, or pericholecystic fluid or inflammation. Negative sonographic Ramirez's Biliary ducts: Intrahepatic bile ducts are non-dilated. Extrahepatic bile duct caliber measures 4 mm. Normal is 6-7 mm or less in diameter, or 10 mm or less post-cholecystectomy. Pancreas: Visualized portions of the pancreas are sonographically normal. Miscellaneous: No free abdominal fluid. IMPRESSION: Abdomen without acute sonographic abnormalities. Specifically, no sonographic abnormalities identified in the liver, gallbladder, biliary ducts and pancreas. Dictated by: Christo Maravilla M.D. on 04/26/2019 at 21:16 Approved by: Christo Maravilla M.D. on 04/26/2019 at 21:18
--- NOTE | 2019-04-26 17:44 | ED.ABDPAIN ---
HPI - Abdominal Pain <NELSON Garcia - Last Filed: 04/26/19 21:53> General Chief Complaint: Abdominal Pain Stated Complaint: 6wks preg, left side abdominal pain Time Seen by Provider: 04/26/19 17:29 Source: patient Mode of arrival: ambulatory Limitations: no limitations History of Present Illness HPI narrative: Healthy 38-year-old, , who is currently 6 weeks presents emergency department today complaining of lower abdominal pain starting this morning. She states the pain is a intermittent 4/10 cramping pain that is located in her LLQ. Patient also noticed that she has increasing nausea and ?ammonia ?smelling urine. She denies any chest pain, shortness of breath, fevers, vomiting, diarrhea, flank pain, vaginal bleeding, vaginal discharge, or syncope. She states she is only taking multivitamins. She also reports she has not established an OB at this time but she presents emergency department course she is worried about the baby. Related Data Home Medications Medication Instructions Recorded Confirmed cyclobenzaprine 10 mg PO TID PRN 04/03/19 04/03/19 fluoxetine 20 mg PO BID 04/03/19 04/03/19 topiramate 12.5 - 25 mg PO QAM 04/03/19 04/03/19 topiramate 50 mg PO BEDTIME 04/03/19 04/03/19 Previous Rx's Medication Instructions Recorded [massage] #12 12/02/16 epinephrine 0.3 mg/0.3 mL 0.3 mg IM PRN PRN #1 ea 03/23/18 injection, auto-injector fluticasone propionate 50 2 spray NASAL DAILY #9.9 gram 03/18/19 mcg/actuation nasal spray,suspension Allergies Allergy/AdvReac Type Severity Reaction Status Date / Time latex [LATEX] Allergy Unknown Verified 04/26/19 17:26 hydrocodone [From Vicodin] Allergy Verified 04/26/19 17:26 Sulfa (Sulfonamide Allergy Verified 04/26/19 17:26 Antibiotics) Review of Systems <NELSON aGrcia - Last Filed: 04/26/19 21:53> Review of Systems REVIEW OF SYSTEMS: GENERAL: Denies fever, chills, malaise, or wt. loss. HENT: No head trauma, sore throat, or dysphagia. EYES: No loss of vision, double vision, eye pain, or irritation. CARDIOVASCULAR: No chest pain, palpitations, or orthopnea. RESPIRATORY: No shortness of breath or cough. GASTROINTESTINAL: Complains of LLQ abdominal pain, see HPI GENITOURINARY: No flank pain, urinary incontinence, hesitancy, frequency, or dysuria. No vaginal discharge or dyspareunia. Denies concerns for STIs MUSCULOSKELETAL: No pain, weakness, or trauma. INTEGUMENTARY: No rash, lesions, or pruritus. NEURO: No numbness, tingling, memory loss, confusion, or headaches. PSYCH: No behavior or mood changes. PFSH <NELSON Garcia - Last Filed: 04/26/19 21:53> Medical History Anxiety (Chronic Unknown) Bipolar disorder (Chronic ~2012) Depression (Chronic Unknown) Hyperthyroidism (Chronic Unknown) PTSD (post-traumatic stress disorder) (Chronic Unknown) Plantar fasciitis (Chronic 02/2017) Tear meniscus knee (Chronic Unknown) Abnormal Pap smear of cervix (Resolved 2003) Whiplash (Resolved 04/2017) Family History (Updated 03/04/18 @ 11:32 by Shruti Sahni LPN) Grandmother Breast cancer Mother Hypothyroidism Social History Smoking Status: Former smoker Family History Grandmother Breast cancer Mother Hypothyroidism Social History Smoking Status: Former smoker Exam <NELSON Garcia - Last Filed: 04/26/19 21:53> Initial Vital Signs Initial Vital Signs: Vital Signs Temperature 98.2 F 04/26/19 17:26 Pulse Rate 74 04/26/19 17:26 Respiratory Rate 18 04/26/19 17:26 Blood Pressure 117/76 04/26/19 17:26 Pulse Oximetry 98 04/26/19 17:26 PHYSICAL EXAMINATION: GENERAL: Well groomed, alert, and cooperative. Answers questions promptly and appropriately. Vital signs noted. HENT: Normocephalic, atraumatic. Hearing intact. Oral mucosa is pink and moist. EYES: Conjunctiva pink, sclera white, no periorbital swelling. CARDIOVASCULAR: S1 and S2 sounds normal. Regular rate and rhythm, no murmurs, clicks, or bruits. No pedal edema. RESPIRATORY: Normal respiratory rate, trachea midline, airway patent. No stridor, nasal flaring or accessory muscle use. Lungs are clear in all mckeon without wheeze, rhonchi, or crackles. GASTROINTESTINAL: Bowel sounds normoactive. Abdomen is soft right upper quadrant and left lower quadrant tenderness with deep palpation.. No organomegaly, no palpable masses. GENITALURINARY: No flank tenderness. MUSCULOSKELETAL: Normal gait and coordination. Equal tone and mass bilaterally. EXTREMITIES: CMS intact, no pedal edema. SKIN: Warm, dry, soft, appropriate color for ethnicity. No lesions, rashes, or wounds. NEURO: Alert and Oriented X 3. Good coordination. No ataxia, or sensory deficits, or cognitive issues. PSYCH: Appropriate affect and mood. <Cathryn Mckeon DO - Last Filed: 04/27/19 07:28> Initial Vital Signs Initial Vital Signs: Vital Signs Temperature 98.2 F 04/26/19 17:26 Pulse Rate 74 04/26/19 17:26 Respiratory Rate 18 04/26/19 17:26 Blood Pressure 117/76 04/26/19 17:26 Pulse Oximetry 98 04/26/19 17:26 Course <NELSON Garcia - Last Filed: 04/26/19 21:53> Course Narrative: Patient was informed of the irvin gestational hemorrhage on her ultrasound, she was encouraged to with OB. Orders Ordered: Discontinued Medications Sodium Chloride (Normal Saline 0.9%) 1,000 mls @ 1,000 mls/hr IV BOLUS ONE Stop: 04/26/19 18:38 Last Infusion: 04/26/19 19:15 Dose: 0 mls/hr Admin: 04/26/19 18:04 Dose: 1,000 mls/hr Consultations Consultation #1: Patient staffed with Dr. Mckeon. Vital Signs - 8 hr 04/26/19 17:26 04/26/19 19:00 04/26/19 20:00 Temperature 98.2 F Pulse Rate 74 78 73 Respiratory Rate 18 18 16 Blood Pressure 117/76 Blood Pressure [Left Arm] 97/59 L 109/51 L Pulse Oximetry 98 99 98 04/26/19 21:41 Temperature Pulse Rate 77 Respiratory Rate 18 Blood Pressure 100/51 L Blood Pressure [Left Arm] Pulse Oximetry 99 <Cathryn Mckeon DO - Last Filed: 04/27/19 07:28> Orders Ordered: Discontinued Medications Sodium Chloride (Normal Saline 0.9%) 1,000 mls @ 1,000 mls/hr IV BOLUS ONE Stop: 04/26/19 18:38 Last Infusion: 04/26/19 19:15 Dose: 0 mls/hr Admin: 04/26/19 18:04 Dose: 1,000 mls/hr Vital Signs - 8 hr 04/26/19 17:26 04/26/19 19:00 04/26/19 20:00 Temperature 98.2 F Pulse Rate 74 78 73 Respiratory Rate 18 18 16 Blood Pressure 117/76 Blood Pressure [Left Arm] 97/59 L 109/51 L Pulse Oximetry 98 99 98 04/26/19 21:41 Temperature Pulse Rate 77 Respiratory Rate 18 Blood Pressure 100/51 L Blood Pressure [Left Arm] Pulse Oximetry 99 MDM - Abdominal Pain <NELSON Garcia - Last Filed: 04/26/19 21:53> Medical Records Attestation: I reviewed the patient's medical records. Lab Data Attestation: I reviewed the patient's lab results. Result diagrams: 04/26/19 17:45 04/26/19 17:45 Lab Results 04/26/19 04/26/19 04/26/19 Range/Units 17:45 17:45 17:45 WBC 7.0 (4.5-11.0) X10^3/uL RBC 3.72 L (4.0-5.2) X10^6/uL Hgb 11.4 L (12.0-16.0) g/dL Hct 34.1 L (36-46) % MCV 91.8 (80-100) fL MCH 30.8 (26-34) PG MCHC 33.5 (30-36) % RDW 14.0 (11.6-14.8) % Plt Count 273 (150-400) X10^3/uL Neut % (Auto) 59.1 (50-75) % Lymph % (Auto) 31.0 (25-40) % Meade % (Auto) 8.1 (3-14) % Eos % (Auto) 1.2 L (2-4) % Baso % (Auto) 0.6 (0-2) % Neut # (Auto) 4100 (3052-3452) /uL Lymph # (Auto) 2200 (4569-5680) /uL Meade # (Auto) 600 (0-900) /uL Eos # (Auto) 100 (0-450) /uL Baso # (Auto) 0 (0-100) /uL Sodium 138 (137-145) mmol/L Potassium 4.2 (3.4-5.1) mmol/L Chloride 103 (98-107) mmol/L Carbon Dioxide 27 (22-32) mmol/L BUN 11 (7-17) mg/dL Creatinine 0.50 L (0.52-1.04) mg/dL Estimated GFR > 60.0 (>60) mL/min BUN/Creatinine Ratio 22.0 (6-22) Glucose 89 (70-100) mg/dL Calcium 9.7 (8.4-10.2) mg/dL Total Bilirubin 0.4 (0.2-1.3) mg/dL AST 25 (14-36) IU/L ALT 12 (9-52) IU/L Alkaline Phosphatase 50 (38-126) U/L Total Protein 7.2 (6.3-8.2) g/dL Albumin 4.1 (3.5-5.0) g/dL Globulin 3.1 (1.7-4.1) g/dL Albumin/Globulin Ratio 1.3 (1.0-2.8) Lipase 106 (23-300) U/L HCG, Quant 07765 mIU/mL Blood Type O Positive Point of care testing: Point of Care Testing Test Results Positive Urine Dip Bedside Urine Glucose Negative Bedside Urine Bilirubin - Negative Bedside Urine Ketone - Negative Urine Specific Banner 1.010 Bedside Urine Occult Blood - Negative Bedside Urine pH 6.0 Bedside Urine Protein - Negative Bedside Urine Urobilinogen - Negative Bedside Urine Nitrite - Negative Bedside Urine Leukocytes - Negative Esterase Imaging Data US - abdomen: Radiologist's impression: [address] [address] Ultrasound Report Signed Patient: Gita Estrada [facility]#: [id number] : 1980Acct:[id number] Age/Sex: 38 / FDate of Service: 04/26/19 Loc: ED Accession Number: [id number] Procedure: US abdomen limited Ordering Provider: Shalonda Hartmann PROCEDURE: US ABDOMEN LIMITED INDICATIONS: RIGHT UPPER QUADRANT PAIN TECHNIQUE: Real-time scanning was performed of the abdominal and retroperitoneal organs, with image documentation. COMPARISON: None. FINDINGS: Liver: Liver is normal in size and homogeneous in echotexture. Gallbladder: The gallbladder is unremarkable in appearance without evidence for gallstones, wall thickening, or pericholecystic fluid or inflammation. Negative sonographic Ramirez's Biliary ducts: Intrahepatic bile ducts are non-dilated. Extrahepatic bile duct caliber measures 4 mm. Normal is 6-7 mm or less in diameter, or 10 mm or less post-cholecystectomy. Pancreas: Visualized portions of the pancreas are sonographically normal. Miscellaneous: No free abdominal fluid. IMPRESSION: Abdomen without acute sonographic abnormalities. Specifically, no sonographic abnormalities identified in the liver, gallbladder, biliary ducts and pancreas. Dictated by: Christo Maravilla M.D. on 04/26/2019 at 21:16 Approved by: Christo Maravilla M.D. on 04/26/2019 at 21:18 Ultrasound: Radiologist's impression: [address] [place] [address] Ultrasound Report Signed Patient: Gita Estrada [facility]#: [id number] : 1980Acct:[id number] Age/Sex: 38 / FDate of Service: 04/26/19 Loc: ED Accession Number: [id number] Procedure: US OB <= 14 weeks fetus Ordering Provider: Shalonda Hartmann PROCEDURE: US OB <= 14 WEEKS FETUS INDICATIONS: CRAMPING OUTSIDE/PRIOR DATING DATA: First dating scan (date and location): 04/26/19. Estimated date of delivery (MARILOU) from first dating scan: 12/20/19. TECHNIQUE: Real-time scanning was performed of the fetus and maternal pelvic organs, with image documentation. Endovaginal scanning was also performed to better visualize the fetus and maternal ovaries. COMPARISON: [facility], US OB <= 14 WEEKS FETUS, 04/10/2019, 9:47. FINDINGS: Embryo: Single living intrauterine gestation identified with cardiac activity measuring 115 beats per minute. Estimated gestational age is approximately 6 weeks and 0 days based on crown-rump length measuring 3 mm. There is a small 5 mm hypoechoic focus adjacent to the gestational sac possibly representing a small perigestational hemorrhage. Maternal organs: Ovaries were not visualized. Limited images through the kidneys demonstrate no hydronephrosis. IMPRESSION: 1. Single living intrauterine gestation with an estimated sonographic gestational age of approximately 6 weeks and 0 days based off crown-rump length. Recommend routine second trimester anatomic screening survey. 2. Tiny 5 mm hypoechoic focus adjacent to the gestational sac possibly representing a small perigestational hemorrhage. Dictated by: Christo Maravilla M.D. on 04/26/2019 at 21:18 Approved by: Christo Maravilla M.D. on 04/26/2019 at 21:22 MDM Narrative Medical decision making narrative: Differential includes perigestational hemorrhage (as seen on ultrasound, cramping pain), cholecystitis (less likely due to normal visit ligation of the gallbladder, normal labs), urinary tract infection (less likely due to negative urinalysis), and less likely appendicitis or acute abdomen (benign exam, no elevated white count noted). Strict return precautions given and follow-up instructions discussed. <Cathryn Mckeon, DO - Last Filed: 04/27/19 07:28> Lab Data Lab Results 04/26/19 04/26/19 04/26/19 Range/Units 17:45 17:45 17:45 WBC 7.0 (4.5-11.0) X10^3/uL RBC 3.72 L (4.0-5.2) X10^6/uL Hgb 11.4 L (12.0-16.0) g/dL Hct 34.1 L (36-46) % MCV 91.8 (80-100) fL MCH 30.8 (26-34) PG MCHC 33.5 (30-36) % RDW 14.0 (11.6-14.8) % Plt Count 273 (150-400) X10^3/uL Neut % (Auto) 59.1 (50-75) % Lymph % (Auto) 31.0 (25-40) % Meade % (Auto) 8.1 (3-14) % Eos % (Auto) 1.2 L (2-4) % Baso % (Auto) 0.6 (0-2) % Neut # (Auto) 4100 (4002-4583) /uL Lymph # (Auto) 2200 (7303-0718) /uL Meade # (Auto) 600 (0-900) /uL Eos # (Auto) 100 (0-450) /uL Baso # (Auto) 0 (0-100) /uL Sodium 138 (137-145) mmol/L Potassium 4.2 (3.4-5.1) mmol/L Chloride 103 (98-107) mmol/L Carbon Dioxide 27 (22-32) mmol/L BUN 11 (7-17) mg/dL Creatinine 0.50 L (0.52-1.04) mg/dL Estimated GFR > 60.0 (>60) mL/min BUN/Creatinine Ratio 22.0 (6-22) Glucose 89 (70-100) mg/dL Calcium 9.7 (8.4-10.2) mg/dL Total Bilirubin 0.4 (0.2-1.3) mg/dL AST 25 (14-36) IU/L ALT 12 (9-52) IU/L Alkaline Phosphatase 50 (38-126) U/L Total Protein 7.2 (6.3-8.2) g/dL Albumin 4.1 (3.5-5.0) g/dL Globulin 3.1 (1.7-4.1) g/dL Albumin/Globulin Ratio 1.3 (1.0-2.8) Lipase 106 (23-300) U/L HCG, Quant 48117 mIU/mL Blood Type O Positive Point of care testing: Point of Care Testing Test Results Positive Urine Dip Bedside Urine Glucose Negative Bedside Urine Bilirubin - Negative Bedside Urine Ketone - Negative Urine Specific Banner 1.010 Bedside Urine Occult Blood - Negative Bedside Urine pH 6.0 Bedside Urine Protein - Negative Bedside Urine Urobilinogen - Negative Bedside Urine Nitrite - Negative Bedside Urine Leukocytes - Negative Esterase Discharge Plan Departure Patient Disposition: Home Clinical Impression: Abdominal pain Qualifiers: Abdominal location: generalized Qualified Code(s): R10.84 - Generalized abdominal pain Discharge Date/Time: 04/26/19 21:42 Interventions: ED Discharge Assessment Last Done: 04/26/19 21:41 Instructions: DI for Abdominal Pain-Adult Activity Restrictions/Additional Instructions: Thank you for entrusting me with your care today. As discussed, your lab work was negative for any concerning findings. The ultrasound showed that her baby is doing well. Your urine was negative for any infections, in your gallbladder did not show any concerning findings. Please establish care with an OB to make a follow-up appointment with them. Return to the emergency department if he develops chest pain, shortness of breath, high fevers, uncontrollable vomiting, or syncope. Prescriptions: No Action fluticasone propionate [Flonase Allergy Relief] 50 mcg/actuation spray,suspension 2 spray NASAL DAILY Qty: 9.9 RF: 0 [massage] Qty: 12 RF: 0 epinephrine [EpiPen 2-Al] 0.3 mg/0.3 mL auto-injector 0.3 mg IM PRN PRN (Reason: anaphylaxis) Qty: 1 RF: 2 cyclobenzaprine 10 mg tablet 10 mg PO TID PRN (Reason: Spasms) RF: 0 topiramate 25 mg tablet 12.5 - 25 mg PO QAM RF: 0 topiramate 25 mg tablet 50 mg PO BEDTIME RF: 0 fluoxetine 20 mg capsule 20 mg PO BID RF: 0 Referrals: Gita Rodríguez ARNP [Primary Care Provider] - <Cathryn Mckeon DO - Last Filed: 04/27/19 07:28> Cosign ED Attending Corbinature Attestation: I was immediately available in the department for consultation. Documentation has been reviewed. I agree with assessment and plan.
--- NOTE | 2019-04-26 17:47 | ED_ITS ---
HPI - Abdominal Pain <NELSON Garcia - Last Filed: 04/26/19 21:53> General Chief Complaint: Abdominal Pain Stated Complaint: 6wks preg, left side abdominal pain Time Seen by Provider: 04/26/19 17:29 Source: patient Mode of arrival: ambulatory Limitations: no limitations History of Present Illness HPI narrative: Healthy 38-year-old, , who is currently 6 weeks presents emergency department today complaining of lower abdominal pain starting this morning. She states the pain is a intermittent 4/10 cramping pain that is located in her LLQ. Patient also noticed that she has increasing nausea and ?ammonia ?smelling urine. She denies any chest pain, shortness of breath, fevers, vomiting, diarrhea, flank pain, vaginal bleeding, vaginal discharge, or syncope. She states she is only taking multivitamins. She also reports she has not established an OB at this time but she presents emergency department course she is worried about the baby. Related Data Home Medications Medication Instructions Recorded Confirmed cyclobenzaprine 10 mg PO TID PRN 04/03/19 04/03/19 fluoxetine 20 mg PO BID 04/03/19 04/03/19 topiramate 12.5 - 25 mg PO QAM 04/03/19 04/03/19 topiramate 50 mg PO BEDTIME 04/03/19 04/03/19 Previous Rx's Medication Instructions Recorded [massage] #12 12/02/16 epinephrine 0.3 mg/0.3 mL 0.3 mg IM PRN PRN #1 ea 03/23/18 injection, auto-injector fluticasone propionate 50 2 spray NASAL DAILY #9.9 gram 03/18/19 mcg/actuation nasal spray,suspension Allergies Allergy/AdvReac Type Severity Reaction Status Date / Time latex [LATEX] Allergy Unknown Verified 04/26/19 17:26 hydrocodone [From Vicodin] Allergy Verified 04/26/19 17:26 Sulfa (Sulfonamide Allergy Verified 04/26/19 17:26 Antibiotics) Review of Systems <NELSON Garcia - Last Filed: 04/26/19 21:53> Review of Systems REVIEW OF SYSTEMS: GENERAL: Denies fever, chills, malaise, or wt. loss. HENT: No head trauma, sore throat, or dysphagia. EYES: No loss of vision, double vision, eye pain, or irritation. CARDIOVASCULAR: No chest pain, palpitations, or orthopnea. RESPIRATORY: No shortness of breath or cough. GASTROINTESTINAL: Complains of LLQ abdominal pain, see HPI GENITOURINARY: No flank pain, urinary incontinence, hesitancy, frequency, or dysuria. No vaginal discharge or dyspareunia. Denies concerns for STIs MUSCULOSKELETAL: No pain, weakness, or trauma. INTEGUMENTARY: No rash, lesions, or pruritus. NEURO: No numbness, tingling, memory loss, confusion, or headaches. PSYCH: No behavior or mood changes. PFSH <NELSON Garcia - Last Filed: 04/26/19 21:53> Medical History Anxiety (Chronic Unknown) Bipolar disorder (Chronic ~2012) Depression (Chronic Unknown) Hyperthyroidism (Chronic Unknown) PTSD (post-traumatic stress disorder) (Chronic Unknown) Plantar fasciitis (Chronic 02/2017) Tear meniscus knee (Chronic Unknown) Abnormal Pap smear of cervix (Resolved 2003) Whiplash (Resolved 04/2017) Family History (Updated 03/04/18 @ 11:32 by Shruti Sahni LPN) Grandmother Breast cancer Mother Hypothyroidism Social History Smoking Status: Former smoker Family History Grandmother Breast cancer Mother Hypothyroidism Social History Smoking Status: Former smoker Exam <NELSON Garcia - Last Filed: 04/26/19 21:53> Initial Vital Signs Initial Vital Signs: Vital Signs Temperature 98.2 F 04/26/19 17:26 Pulse Rate 74 04/26/19 17:26 Respiratory Rate 18 04/26/19 17:26 Blood Pressure 117/76 04/26/19 17:26 Pulse Oximetry 98 04/26/19 17:26 PHYSICAL EXAMINATION: GENERAL: Well groomed, alert, and cooperative. Answers questions promptly and appropriately. Vital signs noted. HENT: Normocephalic, atraumatic. Hearing intact. Oral mucosa is pink and moist. EYES: Conjunctiva pink, sclera white, no periorbital swelling. CARDIOVASCULAR: S1 and S2 sounds normal. Regular rate and rhythm, no murmurs, clicks, or bruits. No pedal edema. RESPIRATORY: Normal respiratory rate, trachea midline, airway patent. No stridor, nasal flaring or accessory muscle use. Lungs are clear in all mckeon without wheeze, rhonchi, or crackles. GASTROINTESTINAL: Bowel sounds normoactive. Abdomen is soft right upper quadrant and left lower quadrant tenderness with deep palpation.. No organomegal y, no palpable masses. GENITALURINARY: No flank tenderness. MUSCULOSKELETAL: Normal gait and coordination. Equal tone and mass bilaterally. EXTREMITIES: CMS intact, no pedal edema. SKIN: Warm, dry, soft, appropriate color for ethnicity. No lesions, rashes, or wounds. NEURO: Alert and Oriented X 3. Good coordination. No ataxia, or sensory deficits, or cognitive issues. PSYCH: Appropriate affect and mood. <Cathryn Mckeon DO - Last Filed: 04/27/19 07:28> Initial Vital Signs Initial Vital Signs: Vital Signs Temperature 98.2 F 04/26/19 17:26 Pulse Rate 74 04/26/19 17:26 Respiratory Rate 18 04/26/19 17:26 Blood Pressure 117/76 04/26/19 17:26 Pulse Oximetry 98 04/26/19 17:26 Course <NELSON Garcia - Last Filed: 04/26/19 21:53> Course Narrative: Patient was informed of the irvin gestational hemorrhage on her ultrasound, she was encouraged to with OB. Orders Ordered: Discontinued Medications Sodium Chloride (Normal Saline 0.9%) 1,000 mls @ 1,000 mls/hr IV BOLUS ONE Stop: 04/26/19 18:38 Last Infusion: 04/26/19 19:15 Dose: 0 mls/hr Admin: 04/26/19 18:04 Dose: 1,000 mls/hr Consultations Consultation #1: Patient staffed with Dr. Mckeon. Vital Signs - 8 hr 04/26/19 17:26 04/26/19 19:00 04/26/19 20:00 Temperature 98.2 F Pulse Rate 74 78 73 Respiratory Rate 18 18 16 Blood Pressure 117/76 Blood Pressure [Left Arm] 97/59 L 109/51 L Pulse Oximetry 98 99 98 04/26/19 21:41 Temperature Pulse Rate 77 Respiratory Rate 18 Blood Pressure 100/51 L Blood Pressure [Left Arm] Pulse Oximetry 99 <Cathryn Mckeon DO - Last Filed: 04/27/19 07:28> Orders Ordered: Discontinued Medications Sodium Chloride (Normal Saline 0.9%) 1,000 mls @ 1,000 mls/hr IV BOLUS ONE Stop: 04/26/19 18:38 Last Infusion: 04/26/19 19:15 Dose: 0 mls/hr Admin: 04/26/19 18:04 Dose: 1,000 mls/hr Vital Signs - 8 hr 04/26/19 17:26 04/26/19 19:00 04/26/19 20:00 Temperature 98.2 F Pulse Rate 74 78 73 Respiratory Rate 18 18 16 Blood Pressure 117/76 Blood Pressure [Left Arm] 97/59 L 109/51 L Pulse Oximetry 98 99 98 04/26/19 21:41 Temperature Pulse Rate 77 Respiratory Rate 18 Blood Pressure 100/51 L Blood Pressure [Left Arm] Pulse Oximetry 99 MDM - Abdominal Pain <NELSON Garcia - Last Filed: 04/26/19 21:53> Medical Records Attestation: I reviewed the patient's medical records. Lab Data Attestation: I reviewed the patient's lab results. Result diagrams: 04/26/19 17:45 04/26/19 17:45 Lab Results 04/26/19 04/26/19 04/26/19 Range/Units 17:45 17:45 17:45 WBC 7.0 (4.5-11.0) X10^3/uL RBC 3.72 L (4.0-5.2) X10^6/uL Hgb 11.4 L (12.0-16.0) g/dL Hct 34.1 L (36-46) % MCV 91.8 (80-100) fL MCH 30.8 (26-34) PG MCHC 33.5 (30-36) % RDW 14.0 (11.6-14.8) % Plt Count 273 (150-400) X10^3/uL Neut % (Auto) 59.1 (50-75) % Lymph % (Auto) 31.0 (25-40) % [place] % (Auto) 8.1 (3-14) % Eos % (Auto) 1.2 L (2-4) % Baso % (Auto) 0.6 (0-2) % Neut # (Auto) 4100 (9325-2313) /uL Lymph # (Auto) 2200 (7436-1412) /uL [place] # (Auto) 600 (0-900) /uL Eos # (Auto) 100 (0-450) /uL Baso # (Auto) 0 (0-100) /uL Sodium 138 (137-145) mmol/L Potassium 4.2 (3.4-5.1) mmol/L Chloride 103 (98-107) mmol/L Carbon Dioxide 27 (22-32) mmol/L BUN 11 (7-17) mg/dL Creatinine 0.50 L (0.52-1.04) mg/dL Estimated GFR > 60.0 (>60) mL/min BUN/Creatinine Ratio 22.0 (6-22) Glucose 89 (70-100) mg/dL Calcium 9.7 (8.4-10.2) mg/dL Total Bilirubin 0.4 (0.2-1.3) mg/dL AST 25 (14-36) IU/L ALT 12 (9-52) IU/L Alkaline Phosphatase 50 (38-126) U/L Total Protein 7.2 (6.3-8.2) g/dL Albumin 4.1 (3.5-5.0) g/dL Globulin 3.1 (1.7-4.1) g/dL Albumin/Globulin Ratio 1.3 (1.0-2.8) Lipase 106 (23-300) U/L HCG, Quant 80209 mIU/mL Blood Type O Positive Point of care testing: Point of Care Testing Test Results Positive Urine Dip Bedside Urine Glucose Negative Bedside Urine Bilirubin - Negative Bedside Urine Ketone - Negative Urine Specific [place] 1.010 Bedside Urine Occult Blood - Negative Bedside Urine pH 6.0 Bedside Urine Protein - Negative Bedside Urine Urobilinogen - Negative Bedside Urine Nitrite - Negative Bedside Urine Leukocytes - Negative Esterase Imaging Data US - abdomen: Radiologist's impression: [address] [address] Ultrasound Report Signed Patient: Gita Estrada [facility]#: [id number] : 1980Acct:[id number] Age/Sex: 38 / FDate of Service: 04/26/19 Loc: ED Accession Number: [id number] Procedure: US abdomen limited Ordering Provider: Shalonda Hartmann PROCEDURE: US ABDOMEN LIMITED INDICATIONS: RIGHT UPPER QUADRANT PAIN TECHNIQUE: Real-time scanning was performed of the abdominal and retroperitoneal organs, with image documentation. COMPARISON: None. FINDINGS: Liver: Liver is normal in size and homogeneous in echotexture. Gallbladder: The gallbladder is unremarkable in appearance without evidence for gallstones, wall thickening, or pericholecystic fluid or inflammation. Negative sonographic Ramirez's Biliary ducts: Intrahepatic bile ducts are non-dilated. Extrahepatic bile duct caliber measures 4 mm. Normal is 6-7 mm or less in diameter, or 10 mm or less post-cholecystectomy. Pancreas: Visualized portions of the pancreas are sonographically normal. Miscellaneous: No free abdominal fluid. IMPRESSION: Abdomen without acute sonographic abnormalities. Specifically, no sonographic abnormalities identified in the liver, gallbladder, biliary ducts and pancreas. Dictated by: Christo Maravilla M.D. on 04/26/2019 at 21:16 Approved by: Christo Maravilla M.D. on 04/26/2019 at 21:18 Ultrasound: Radiologist's impression: [address] [place] [address] Ultrasound Report Signed Patient: Gita Estrada [facility]#: [id number] : 1980Acct:[id number] Age/Sex: 38 / FDate of Service: 04/26/19 Loc: ED Accession Number: [id number] Procedure: US OB <= 14 weeks fetus Ordering Provider: Shalonda Hartmann PROCEDURE: US OB <= 14 WEEKS FETUS INDICATIONS: CRAMPING OUTSIDE/PRIOR DATING DATA: First dating scan (date and location): 04/26/19. Estimated date of delivery (MARILOU) from first dating scan: 12/20/19. TECHNIQUE: Real-time scanning was performed of the fetus and maternal pelvic organs, with image documentation. Endovaginal scanning was also performed to better visualize the fetus and maternal ovaries. COMPARISON: [facility], US OB <= 14 WEEKS FETUS, 04/10/2019, 9:47. FINDINGS: Embryo: Single living intrauterine gestation identified with cardiac activity measuring 115 beats per minute. Estimated gestational age is approximately 6 weeks and 0 days based on crown-rump length measuring 3 mm. There is a small 5 mm hypoechoic focus adjacent to the gestational sac possibly representing a small perigestational hemorrhage. Maternal organs: Ovaries were not visualized. Limited images through the kidneys demonstrate no hydronephrosis. IMPRESSION: 1. Single living intrauterine gestation with an estimated sonographic gestational age of approximately 6 weeks and 0 days based off crown-rump length. Recommend routine second trimester anatomic screening survey. 2. Tiny 5 mm hypoechoic focus adjacent to the gestational sac possibly representing a small perigestational hemorrhage. Dictated by: Christo Maravilla M.D. on 04/26/2019 at 21:18 Approved by: Christo Maravilla M.D. on 04/26/2019 at 21:22 MDM Narrative Medical decision making narrative: Differential includes perigestational hemorrhage (as seen on ultrasound, cramping pain), cholecystitis (less likely d ue to normal visit ligation of the gallbladder, normal labs), urinary tract infection (less likely due to negative urinalysis), and less likely appendicitis or acute abdomen (benign exam, no elevated white count noted). Strict return precautions given and follow-up instructions discussed. <Cathryn Mckeon, DO - Last Filed: 04/27/19 07:28> Lab Data Lab Results 04/26/19 04/26/19 04/26/19 Range/Units 17:45 17:45 17:45 WBC 7.0 (4.5-11.0) X10^3/uL RBC 3.72 L (4.0-5.2) X10^6/uL Hgb 11.4 L (12.0-16.0) g/dL Hct 34.1 L (36-46) % MCV 91.8 (80-100) fL MCH 30.8 (26-34) PG MCHC 33.5 (30-36) % RDW 14.0 (11.6-14.8) % Plt Count 273 (150-400) X10^3/uL Neut % (Auto) 59.1 (50-75) % Lymph % (Auto) 31.0 (25-40) % [place] % (Auto) 8.1 (3-14) % Eos % (Auto) 1.2 L (2-4) % Baso % (Auto) 0.6 (0-2) % Neut # (Auto) 4100 (1216-8124) /uL Lymph # (Auto) 2200 (5782-3812) /uL [place] # (Auto) 600 (0-900) /uL Eos # (Auto) 100 (0-450) /uL Baso # (Auto) 0 (0-100) /uL Sodium 138 (137-145) mmol/L Potassium 4.2 (3.4-5.1) mmol/L Chloride 103 (98-107) mmol/L Carbon Dioxide 27 (22-32) mmol/L BUN 11 (7-17) mg/dL Creatinine 0.50 L (0.52-1.04) mg/dL Estimated GFR > 60.0 (>60) mL/min BUN/Creatinine Ratio 22.0 (6-22) Glucose 89 (70-100) mg/dL Calcium 9.7 (8.4-10.2) mg/dL Total Bilirubin 0.4 (0.2-1.3) mg/dL AST 25 (14-36) IU/L ALT 12 (9-52) IU/L Alkaline Phosphatase 50 (38-126) U/L Total Protein 7.2 (6.3-8.2) g/dL Albumin 4.1 (3.5-5.0) g/dL Globulin 3.1 (1.7-4.1) g/dL Albumin/Globulin Ratio 1.3 (1.0-2.8) Lipase 106 (23-300) U/L HCG, Quant 69383 mIU/mL Blood Type O Positive Point of care testing: Point of Care Testing Test Results Positive Urine Dip Bedside Urine Glucose Negative Bedside Urine Bilirubin - Negative Bedside Urine Ketone - Negative Urine Specific [place] 1.010 Bedside Urine Occult Blood - Negative Bedside Urine pH 6.0 Bedside Urine Protein - Negative Bedside Urine Urobilinogen - Negative Bedside Urine Nitrite - Negative Bedside Urine Leukocytes - Negative Esterase Discharge Plan Departure Patient Disposition: Home Clinical Impression: Abdominal pain Qualifiers: Abdominal location: generalized Qualified Code(s): R10.84 - Generalized abdominal pain Discharge Date/Time: 04/26/19 21:42 Interventions: ED Discharge Assessment Last Done: 04/26/19 21:41 Instructions: DI for Abdominal Pain-Adult Activity Restrictions/Additional Instructions: Thank you for entrusting me with your care today. As discussed, your lab work was negative for any concerning findings. The ultrasound showed that her baby is doing well. Your urine was negative for any infections, in your gallbladder did not show any concerning findings. Please establish care with an OB to make a follow-up appointment with them. Return to the emergency department if he develops chest pain, shortness of breath, high fevers, uncontrollable vomiting, or syncope. Prescriptions: No Action fluticasone propionate [Flonase Allergy Relief] 50 mcg/actuation spray,suspension 2 spray NASAL DAILY Qty: 9.9 RF: 0 [massage] Qty: 12 RF: 0 epinephrine [EpiPen 2-Al] 0.3 mg/0.3 mL auto-injector 0.3 mg IM PRN PRN (Reason: anaphylaxis) Qty: 1 RF: 2 cyclobenzaprine 10 mg tablet 10 mg PO TID PRN (Reason: Spasms) RF: 0 topiramate 25 mg tablet 12.5 - 25 mg PO QAM RF: 0 topiramate 25 mg tablet 50 mg PO BEDTIME RF: 0 fluoxetine 20 mg capsule 20 mg PO BID RF: 0 Referrals: Gita Rodríguez ARNP [Primary Care Provider] - <Cathryn Mckeon DO - Last Filed: 04/27/19 07:28> Cosign ED Attending Corbinature Attestation: I was immediately available in the department for consultation. Documentation has been reviewed. I agree with assessment and plan.
[2019-04-26 18:01] LABS: Add Manual Diff / Slide Review NO; Basophils Absolute Auto 0 /uL (0-100); Basophils Percent Auto 0.6 % (0-2); Eosinophils Absolute Auto 100 /uL (0-450); Eosinophils Percent Auto 1.2 % (2-4); Hematocrit 34.1 % (36-46); Hemoglobin 11.4 g/dL (12.0-16.0); Lymphocytes Absolute Auto 2200 /uL (1100-4500); Mean Corpuscular HGB Conc 33.5 % (30-36); Mean Corpuscular Hemoglobin 30.8 PG (26-34); Mean Corpuscular Volume 91.8 fL (80-100); Monocytes Absolute Auto 600 /uL (0-900); Monocytes Percent Auto 8.1 % (3-14); Neutrophils Absolute Auto 4100 /uL (1500-7000); Neutrophils Percent Auto 59.1 % (50-75); Platelet Count 273 X10^3/uL (150-400); Red Blood Cell Count 3.72 X10^6/uL (4.0-5.2)
[2019-04-26] MEDS: SODIUM CHLORIDE 0.9% 1,000 ML 1000 ML IV (18:04)
[2019-04-26 18:09] LABS: Alanine Aminotransferase 12 IU/L (9-52); Albumin 4.1 g/dL (3.5-5.0); Albumin Globulin Ratio 1.3 (1.0-2.8); Alkaline Phosphatase 50 U/L (38-126); Aspartate Aminotransferase 25 IU/L (14-36); Bilirubin Total 0.4 mg/dL (0.2-1.3); Blood Urea Nitrogen 11 mg/dL (7-17); Calcium 9.7 mg/dL (8.4-10.2); Carbon Dioxide 27 mmol/L (22-32); Chloride 103 mmol/L (98-107); Estimated Glomerular Filt Rate > 60.0 mL/min (>60); Globulin 3.1 g/dL (1.7-4.1); Glucose 89 mg/dL (70-100); HEMOLYSIS < 15 (0-50); Lipase 106 U/L (23-300); Potassium 4.2 mmol/L (3.4-5.1); Sodium 138 mmol/L (137-145); Total Protein 7.2 g/dL (6.3-8.2)
[2019-04-26 18:51] LABS: HCG Quantitative /Beta subunit 50786 mIU/mL
[2019-04-26 19:00] VITALS: BP 97/59; PULSE 78; RESP 18; O2SAT 99
[2019-04-26 20:00] VITALS: BP 109/51; PULSE 73; RESP 16; O2SAT 98
[2019-04-26 21:41] VITALS: BP 100/51; PULSE 77; RESP 18; O2SAT 99
== END 2019-04-26 21:42 | disposition home or self-care (01) ==
PROVIDERS: Emergency Provider Nurse Practitioner; PCP Nurse Practitioner
DX: O26.891 Other specified pregnancy related conditions, first trimester (principal); R10.84 Generalized abdominal pain; Z3A.01 Less than 8 weeks gestation of pregnancy
CPT/HCPCS: 36591; 76705; 76801; 76817; 80053; 81003; 81025; 83690; 84702; 85025; 86900; 86901; 96360; 99283; 99284

== ENCOUNTER → 2019-04-29 13:39 | Outpatient (CLI) | payer OTHER, MEDICAID, SELFPAY | PROVIDERS: PCP Nurse Practitioner; Visit Provider Nurse Practitioner | DX: N63.20 Unspecified lump in the left breast, unspecified quadrant (principal); Z53.9 Procedure and treatment not carried out, unspecified reason ==

== ENCOUNTER → 2019-05-07 12:53 | Outpatient (CLI) | payer OTHER, MEDICAID, SELFPAY | PROVIDERS: PCP Nurse Practitioner; Visit Provider Obstetrics & Gynecology | DX: Z34.81 Encounter for supervision of other normal pregnancy, first trimester (principal) | CPT/HCPCS: 87086 ==

== ENCOUNTER → 2019-05-07 13:07 | Outpatient (CLI) | payer OTHER, MEDICAID, SELFPAY ==
[2019-05-07 14:16] LABS: Appearance Urine UA CLEAR; Bilirubin Urine UA NEGATIVE (NEGATIVE); Color Urine UA YELLOW; Glucose Urine UA NEGATIVE (Negative); Ketones Urine UA NEGATIVE (NEGATIVE); Leukocyte Esterase Urine UA NEGATIVE (NEGATIVE); Nitrite Urine UA NEGATIVE (Negative); Occult Blood Urine UA NEGATIVE (Negative); Protein Urine UA NEGATIVE (Negative); Specific Gravity Urine UA <=1.005 (1.000-1.035); Urobilinogen Urine UA 0.2 E.U./dL (0.2); pH Urine UA 6.5 (4.5-8.0)
[2019-05-07 14:17] LABS: Add Manual Diff / Slide Review NO; Basophils Absolute Auto 0 /uL (0-100); Basophils Percent Auto 0.7 % (0-2); Eosinophils Absolute Auto 100 /uL (0-450); Eosinophils Percent Auto 1.3 % (2-4); Hematocrit 35.9 % (36-46); Hemoglobin 12.1 g/dL (12.0-16.0); Lymphocytes Absolute Auto 2300 /uL (1100-4500); Lymphocytes Percent Auto 33.5 % (25-40); Mean Corpuscular HGB Conc 33.6 % (30-36); Mean Corpuscular Hemoglobin 30.9 PG (26-34); Mean Corpuscular Volume 91.8 fL (80-100); Monocytes Absolute Auto 500 /uL (0-900); Monocytes Percent Auto 7.4 % (3-14); Neutrophils Absolute Auto 3900 /uL (1500-7000); Neutrophils Percent Auto 57.1 % (50-75); Platelet Count 297 X10^3/uL (150-400); Red Blood Cell Count 3.91 X10^6/uL (4.0-5.2); Red Cell Distribution Width 13.8 % (11.6-14.8); White Blood Cell Count 6.8 X10^3/uL (4.5-11.0)
[2019-05-07 15:44] LABS: Hepatitis B Surface Antigen NEGATIVE s/c (NEGATIVE); Rubella Antibody IgG 38.6 IU/mL (>15)
[2019-05-07 16:06] LABS: Hep C Virus Ab w/Reflex Quant NEGATIVE s/c (NEGATIVE)
[2019-05-07 16:07] LABS: HIV 1 & 2 Ab/Ag 4th Gen Combo NEGATIVE (NEGATIVE)
[2019-05-09 12:32] LABS: RPR Screen Nonreactive (Nonreactive)
== END ==
PROVIDERS: PCP Nurse Practitioner; Visit Provider Obstetrics & Gynecology
DX: Z34.81 Encounter for supervision of other normal pregnancy, first trimester (principal); Z20.5 Contact with and (suspected) exposure to viral hepatitis
CPT/HCPCS: 80055; 81003; 86787; 86803; 86850; 86900; 86901; 87086; 87389

== ENCOUNTER → 2019-05-28 12:20 | Outpatient (CLI) | payer OTHER, MEDICAID, SELFPAY | PROVIDERS: PCP Nurse Practitioner; Visit Provider Obstetrics & Gynecology | DX: O09.529 Supervision of elderly multigravida, unspecified trimester (principal); Z3A.10 10 weeks gestation of pregnancy | CPT/HCPCS: 36415; 81507 ==

== ENCOUNTER → 2019-07-11 17:02 | Outpatient (CLI) | payer OTHER, MEDICAID, SELFPAY ==
[2019-07-19 14:46] LABS: AFP, Serum 83.8 ng/mL; Calc Gestational Age 16.9; Est Date Determined by ULTRASOUND; Maternal Weight 132 lbs; Mother Ethnic Origin OTHER; Number of Fetuses 1; Prev Pregnancies Down Syndrome NOT GIVEN
== END ==
PROVIDERS: PCP Nurse Practitioner; Visit Provider Obstetrics & Gynecology
DX: O09.529 Supervision of elderly multigravida, unspecified trimester (principal); Z34.82 Encounter for supervision of other normal pregnancy, second trimester; Z3A.16 16 weeks gestation of pregnancy
CPT/HCPCS: 36415; 82105

== ENCOUNTER → 2019-07-30 07:14 | Outpatient (CLI) | payer OTHER, MEDICAID, SELFPAY ==
--- NOTE | 2019-07-30 07:15 | DI.US.S_ITS ---
PROCEDURE: US OB >= 14 WEEKS FETUS INDICATIONS: ANATOMY OUTSIDE/PRIOR DATING DATA: . First dating scan (date and location): 04/26/19. Estimated date of delivery (MARILOU) from first dating scan: 12/20/19. TECHNIQUE: Real-time scanning was performed of the fetus, with image documentation and biometric measurements. Endovaginal scanning: No COMPARISON: None. FINDINGS: General: A single living intrauterine gestation is present. Presentation: Transverse. Placenta: Placental position is anterior, without previa. Amniotic fluid index: 13.5 cm, normal range is 5-24 cm. heart rate: 153 beats per minute. Maternal cervical canal: 4.9 cm long. Normal lower limit is 2.5 cm. biometrics: Biparietal diameter: 19 weeks 5 days Head circumference: 20 weeks 3 days Abdominal circumference: 22 weeks 2 days Femur length: 20 weeks 0 days Estimated gestational age from initial scan: 19 weeks 4 days Composite gestational age from present scan: 20 weeks 4 days Estimated weight and percentile: 400 g; 99th percentile Measurement variability for biometric dating: +/- 7 days from 14 weeks to 15 weeks 6 days gestation, +/- 10 days from 16 weeks to 21 weeks 6 days gestation, +/- 2 weeks from 22 weeks to 27 weeks 6 days gestation, +/- 3 weeks for 28 weeks gestation or later. weight reference: 4500 g or EFW >90/95% is considered macrosomia or large for gestational age. EFW <10% is small for gestational age. EFW 5% or less is considered intra-uterine growth restriction. Anatomic survey: Neuro: Ventricles are non-dilated at less than 10 mm. Cisterna magna is normal at 3-11 mm. Cerebellum is normal in size and morphology. Nuchal skin fold: Normal at less than 6 mm between 14-21 weeks gestational age. Face: Nose and lips, facial profile are normal. Spine: No evidence for spina bifida. Heart: 4-chambered heart is present, with normal ventricular outflow tracts. Diaphragm: Diaphragm is intact. Stomach: Left-sided stomach is present. Kidneys: No hydronephrosis. Normal is less than 5 mm in 2nd trimester, less than 7 mm in 3rd trimester. Cord: 3-vessel cord has orthotopic insertion. Bladder: Normal in size. Extremities: All 4 extremities identified. IMPRESSION: 1. Single living IUP redemonstrated and interval growth greater than normal with estimated weight 99th percentile. 2. Normal anatomic survey. Dictated by: London LANGE Interpreted: Harriett Shah MD on 07/30/2019 at 15:46 Approved by: Harriett Shah M.D. on 07/30/2019 at 15:59
== END ==
PROVIDERS: PCP Nurse Practitioner; Visit Provider Obstetrics & Gynecology
DX: Z34.82 Encounter for supervision of other normal pregnancy, second trimester (principal); Z3A.20 20 weeks gestation of pregnancy
CPT/HCPCS: 76811

== ENCOUNTER → 2019-08-28 20:01 | Outpatient (ROUT) | payer OTHER, MEDICAID, SELFPAY ==
[2019-09-04 13:14] LABS: C.trachomatis RNA NOT DETECTED
[2019-09-04 13:15] LABS: N.gonorrhoeae RNA NOT DETECTED
== END ==
PROVIDERS: PCP Nurse Practitioner; Visit Provider Obstetrics & Gynecology
DX: Z11.3 Encounter for screening for infections with a predominantly sexual mode of transmission (principal); Z34.82 Encounter for supervision of other normal pregnancy, second trimester; R39.89 Other symptoms and signs involving the genitourinary system; Z3A.23 23 weeks gestation of pregnancy
CPT/HCPCS: 87480; 87491; 87510; 87591; 87660

== ENCOUNTER → 2019-08-30 12:05 | Outpatient (CLI) | payer OTHER, MEDICAID, SELFPAY ==
--- NOTE | 2019-08-30 12:09 | DI.US.S_ITS ---
LIMITED ULTRASOUND OF LEFT BREAST: 08/30/2019 CLINICAL: 6 month follow-up of masses. Patient is currently . Patient reports a history of prior vasovagal reaction and fainting during prior biopsy at age 26, as well as requiring anti-anxiety medication prior to biopsy. Patient again reports significant concerns about anti-anxiety medication and lidocaine effects during . Comparison is made to exams dated: 04/10/2019 ultrasound, 10/24/2018 ultrasound, 10/24/2018 mammogram, 03/09/2018 ultrasound, 03/06/2018 mammogram, and 08/10/2017 ultrasound biopsy - [facility]. Color flow ultrasound of the left breast 9-12 o'clock region was performed. Macias scale images of the real-time examination were reviewed. There is a 0.8 x 0.7 x 0.6 cm irregular indistinct hypoechoic mass in the left breast at 12 o'clock position 4 cm from the nipple which demonstrates no internal vascularity on Doppler ultrasound. This mass previously measured 0.7 x 0.6 x 0.6 cm on comparison ultrasound of 04/10/19 and 1.0 x 1.0 x 0.5 cm on comparison ultrasound of 10/24/18 There is a 1.3 x 1.0 x 0.8 cm oval indistinct hypoechoic mass in the left breast at 11:30 retroareolar position which demonstrates no internal vascularity on Doppler ultrasound. This mass previously measured 1.2 x 1.1 x 0.7 cm on comparison ultrasound of 04/10/19. There is a 0.7 x 0.3 x 0.2 cm oval indistinct hypoechoic mass in the left breast at 9:00 position 4 cm from the nipple which demonstrates no internal vascularity on Doppler ultrasound. This mass previously measured 0.9 x 0.6 x 0.4 cm on comparison ultrasound of 10/24/18. IMPRESSION: SUSPICIOUS OF MALIGNANCY 1) The 0.8 cm irregular indistinct mass in the left breast at 12:00 position 4 cm from the nipple is stable in size to comparison ultrasound of 04/10/19 and decreased in size from comparison ultrasound of 10/24/18. This mass is at low suspicion for malignancy with the 10 month stability in size being a reassuring finding. An ultrasound guided biopsy remains recommended and, in consideration of patient concerns and risks, will be performed immediately after the conclusion of the patient's current . The patient is advised to follow-up with her referring clinical provider for continued evaluation and management, and is also advised to monitor the area of concern herself as well; the patient is advised to return sooner for re-evaluation should she feel anything grow or change within her breasts. 2) The 1.3 cm oval indistinct mass in the left breast at 11:30 retroareolar position is stable in size to comparison ultrasound of 04/10/19. This mass is at low suspicion for malignancy. An ultrasound guided biopsy remains recommended and, in consideration of patient concerns and risks, will be performed immediately after the conclusion of the patient's current . The patient is advised to follow-up with her referring clinical provider for continued evaluation and management, and is also advised to monitor the area of concern herself as well; the patient is advised to return sooner for re-evaluation should she feel anything grow or change within her breasts. 3) Stable 0.7 cm oval indistinct mass in the left breast at 9:00 position 4 cm from the nipple is probably benign. A followup ultrasound in 6 months is recommended to demonstrate continued stability. These results were discussed with the patient by Dr. Irene by telephone at approximately 8:20 am on 09/02/19. Patient wants and agrees to follow this course of action and agrees to monitor her breasts and return for biopsy sooner should she feel anything grow or change, or should biopsy be desired sooner. This exam was interpreted at Station ID: [id number]. Electronically Signed By: Marcial Irene M.D. ecl/:09/02/2019 08:41:14 letter sent: Biopsy Required Ultrasound BI-RADS: 4a Low suspicion for malignancy
[2019-08-30 12:20] LABS: Bacteria Urine None Seen; RBC Urine None Seen (0-5/HPF); WBC Urine None Seen (0-5/HPF)
[2019-08-30 12:44] LABS: Appearance Urine UA CLEAR; Bilirubin Urine UA NEGATIVE (NEGATIVE); Color Urine UA YELLOW; Glucose Urine UA NEGATIVE (Negative); Ketones Urine UA NEGATIVE (NEGATIVE); Leukocyte Esterase Urine UA NEGATIVE (NEGATIVE); Nitrite Urine UA NEGATIVE (Negative); Occult Blood Urine UA NEGATIVE (Negative); Protein Urine UA NEGATIVE (Negative); Specific Gravity Urine UA <=1.005 (1.000-1.035); Urobilinogen Urine UA 0.2 E.U./dL (0.2)
[2019-08-30 12:52] LABS: Culture Indicated Urine Cult Not Indicated; Urine Comments Microscopic Normal
[2019-08-30 13:39] LABS: Hematocrit 30.9 % (36-46); Hemoglobin 10.5 g/dL (12.0-16.0)
[2019-08-30 14:18] LABS: GTT (PREG) 1 Hour PP 50gm Dose 131 mg/dL (76-139)
== END ==
PROVIDERS: Family Provider Obstetrics & Gynecology; PCP Nurse Practitioner; Visit Provider Obstetrics & Gynecology
DX: O92.29 Other disorders of breast associated with pregnancy and the puerperium (principal); R92.8 Other abnormal and inconclusive findings on diagnostic imaging of breast; O26.892 Other specified pregnancy related conditions, second trimester; R30.9 Painful micturition, unspecified; R35.0 Frequency of micturition; Z3A.24 24 weeks gestation of pregnancy
CPT/HCPCS: 36415; 76642; 81001; 82950; 85014; 85018

== ENCOUNTER 2019-10-21 19:29 | Outpatient (CLI) | payer OTHER, MEDICAID, SELFPAY ==
--- NOTE | 2019-10-21 21:01 | P.TNLD_ITS ---
Visit Information Visit Information Date of evaluation: 10/21/19 Primary OB Provider: Zari Lacy On-call OB Provider: Edith Koroma Reason for Evaluation: Yes non-stress test Comments/Additional reasons for admission: Patient came in to the center due to slipping and falling down about 6 carpeted stairs in her home shortly before arrival. She was walking down the stairs in socks when she slipped and landed on her button then slid down the rest of the stairs. She did not hit her belly. Reports good movement and no contractions, abdominal pain, leaking or bleeding. [facility] Social History Smoking Status: Former smoker Evaluation Evaluation Baseline heart rate: 120 Variability: Moderate (11-25) monitor accelerations: Present monitor decelerations: Absent Category of Tracing: I Diagnosis, Plan/Disposition Final Diagnosis (1) 31 weeks gestation of : Current Visit: No Status: Acute Plan/Disposition Plan: 39 year old at 31 weeks gestation. FHT reassuring after patient sustained a fall onto her bottom while going down carpeted stairs. No contractions on monitor. Patient denies abdominal pain, contractions, bleeding or loss of fluid and reports good movement. Follow up with OB this week. Return precautions given to patient by center RN. OB Disposition: home
== END 2019-10-21 20:45 | disposition home or self-care (01) ==
LOC: OB 11-11 09:41
PROVIDERS: Family Provider Obstetrics & Gynecology; PCP Nurse Practitioner; Visit Provider Family Medicine
DX: O34.03 Maternal care for unspecified congenital malformation of uterus, third trimester (principal); O09.523 Supervision of elderly multigravida, third trimester; W10.8XXA Fall (on) (from) other stairs and steps, initial encounter; Z3A.31 31 weeks gestation of pregnancy
CPT/HCPCS: 59025; 59050; G0378; G0379

== ENCOUNTER 2019-11-04 16:33 | Observation (INO) | payer OTHER, MEDICAID, SELFPAY ==
[2019-11-04 17:17] LABS: Bacteria Urine None Seen; RBC Urine None Seen (0-5/HPF); WBC Urine None Seen (0-5/HPF)
[2019-11-04 17:25] LABS: Appearance Urine UA CLEAR; Bilirubin Urine UA NEGATIVE (NEGATIVE); Color Urine UA YELLOW; Glucose Urine UA NEGATIVE (Negative); Ketones Urine UA NEGATIVE (NEGATIVE); Leukocyte Esterase Urine UA NEGATIVE (NEGATIVE); Nitrite Urine UA NEGATIVE (Negative); Occult Blood Urine UA NEGATIVE (Negative); Protein Urine UA NEGATIVE (Negative); Specific Gravity Urine UA <=1.005 (1.000-1.035); Urobilinogen Urine UA 0.2 E.U./dL (0.2)
[2019-11-04] MEDS: CALCIUM CARBONATE 500 MG TAB 1000 MG PO (17:30)
[2019-11-04 17:31] LABS: Culture Indicated Urine Cult Not Indicated; Squamous Epithelial Cell Urine 1-5 /HPF (0-5/HPF)
--- NOTE | 2019-11-04 17:45 | PM.OBTRLD ---
Visit Information Visit Information Date of evaluation: 11/04/19 On-call OB Provider: Zari Lacy Reason for Evaluation: Yes non-stress test Comments/Additional reasons for admission: This patient is a 39yo @33 wks gestation presenting with nausea and vomiting since last night, now reporting tolerating no PO. Patient has had non-bloody emesis overnight with dry heaves this AM. She denies diarrhea, muscle aches, fevers, chills, dysuria, contractions, VB, LOF, decreased movement, back pain, or any other complaints. She reports no sick contacts, and denies any other complications. Vital Signs Vital Signs: 95/52, HR 77, T 36.2C [facility] Medical History Abnormal Pap smear of cervix (Resolved 2003) Anxiety (Chronic Unknown) Bipolar disorder (Chronic ~2012) Depression (Chronic Unknown) Hyperthyroidism (Chronic Unknown) Plantar fasciitis (Chronic 02/2017) PTSD (post-traumatic stress disorder) (Chronic Unknown) Tear meniscus knee (Chronic Unknown) Whiplash (Resolved 04/2017) Family History Grandmother Breast cancer Mother Hypothyroidism Social History Smoking Status: Former smoker Review of Systems Constitutional Constitutional: Reports system reviewed and no additional complaints, except as documented Cardiovascular Cardiovascular: Reports system reviewed; no additional complaints, except as documented Respiratory Respiratory: Reports system reviewed and no additional complaints, except as documented Gastrointestinal Gastrointestinal: Reports as per HPI and Reports system reviewed and no additional complaints, except as documented Genitourinary Genitourinary: Reports as per HPI Exam Const General: cooperative, healthy appearing and comfortable GI Palpation: soft and No tender Back/Spine/Pelvis Other: No CVA tenderness Skin General: no rashes or lesions noted Objective Labs Result Diagrams: 11/04/19 18:30 11/04/19 18:30 Labs: Laboratory Results - last 24 hr 11/04/19 17:00 Urine Color Yellow Urine Appearance Clear Urine pH 7.0 Ur Specific [place] <=1.005 Urine Protein Negative Urine Glucose (UA) Negative Urine Ketones Negative Urine Occult Blood Negative Urine Nitrate Negative Urine Bilirubin Negative Urine Urobilinogen 0.2 Ur Leukocyte Esterase Negative Urine RBC None seen Urine WBC None seen Ur Squamous Epith Cells 1-5 /hpf Urine Bacteria None seen Ur Culture Indicated? Cult not indicated Evaluation Evaluation Baseline heart rate: 125 Variability: Moderate (11-25) monitor accelerations: Present monitor decelerations: Variable (x2, in the setting of copious movement) Category of Tracing: I Laboratory results: Laboratory Tests 11/04/19 17:00 Urine Color Yellow Urine Appearance Clear Urine pH 7.0 Ur Specific [place] <=1.005 Urine Protein Negative Urine Glucose (UA) Negative Urine Ketones Negative Urine Occult Blood Negative Urine Nitrate Negative Urine Bilirubin Negative Urine Urobilinogen 0.2 Ur Leukocyte Esterase Negative Urine RBC None seen Urine WBC None seen Ur Squamous Epith Cells 1-5 /hpf Urine Bacteria None seen Ur Culture Indicated? Cult not indicated Diagnosis, Plan/Disposition Plan/Disposition Plan: Patient's labs were within normal limits, with a sodium 1 point below the normal range the patient receiving a bolus of normal saline. Patient IV hydrated, given Zofran, and tolerated p.o. well. Patient sent home with antepartum precautions precautions for return. OB Disposition: home
[2019-11-04] MEDS: LACTATED RINGERS 1,000 ML 1000 ML IV (18:21)
[2019-11-04] MEDS: ONDANSETRON 4 MG/2 ML INJ IV (18:21)
[2019-11-04 18:34] LABS: Add Manual Diff / Slide Review NO; Basophils Absolute Auto 0 /uL (0-100); Basophils Percent Auto 0.3 % (0-2); Eosinophils Absolute Auto 0 /uL (0-450); Eosinophils Percent Auto 0.5 % (2-4); Hematocrit 28.5 % (36-46); Hemoglobin 9.9 g/dL (12.0-16.0); Lymphocytes Absolute Auto 2200 /uL (1100-4500); Lymphocytes Percent Auto 29.6 % (25-40); Mean Corpuscular HGB Conc 34.7 % (30-36); Mean Corpuscular Hemoglobin 32.7 PG (26-34); Mean Corpuscular Volume 94.4 fL (80-100); Monocytes Absolute Auto 500 /uL (0-900); Monocytes Percent Auto 6.8 % (3-14); Neutrophils Absolute Auto 4700 /uL (1500-7000); Neutrophils Percent Auto 62.8 % (50-75); Platelet Count 216 X10^3/uL (150-400); Red Blood Cell Count 3.02 X10^6/uL (4.0-5.2); Red Cell Distribution Width 14.1 % (11.6-14.8); White Blood Cell Count 7.5 X10^3/uL (4.5-11.0)
[2019-11-04 18:47] LABS: Blood Urea Nitrogen 4 mg/dL (7-17); Calcium 9.5 mg/dL (8.4-10.2); Carbon Dioxide 24 mmol/L (22-32); Chloride 105 mmol/L (98-107); Estimated Glomerular Filt Rate > 60.0 mL/min (>60); Glucose 87 mg/dL (70-100); HEMOLYSIS < 15 (0-50); Potassium 4.2 mmol/L (3.4-5.1); Sodium 134 mmol/L (137-145)
== END 2019-11-04 20:25 | disposition home or self-care (01) ==
PROVIDERS: Admitting Provider Obstetrics & Gynecology; Family Provider Obstetrics & Gynecology; PCP Nurse Practitioner; Referring Provider Obstetrics & Gynecology; Visit Provider Obstetrics & Gynecology
DX: O21.0 Mild hyperemesis gravidarum (principal); O34.03 Maternal care for unspecified congenital malformation of uterus, third trimester; Q51.3 Bicornate uterus; O09.523 Supervision of elderly multigravida, third trimester; Z3A.33 33 weeks gestation of pregnancy
CPT/HCPCS: 36415; 59025; 59050; 80048; 81001; 85025; 96360; G0378; G0379; J2405

== ENCOUNTER 2022-01-23 13:26 | Emergency (ER) | payer OTHER, MEDICAID, SELFPAY ==
[2022-01-23 13:37] VITALS: BP 120/60; PULSE 74; RESP 22; TEMP 36.6; O2SAT 99
--- NOTE | 2022-01-23 14:21 | ED_ITS ---
HPI - Skin/Abscess/Foreign Bdy <Licha Whitaker, [facility] - Last Filed: 01/23/22 16:29> General Chief complaint: Skin/Abscess/Foreign Body Stated complaint: pcp drained a cyst on monday- fever dizzy Time Seen by Provider: 01/23/22 14:04 Source: patient Mode of arrival: Ambulatory History of Present Illness HPI narrative: This is a 41-year-old female who presents to the emergency department complaining of a swollen Bartholin cyst on her right labia, fever, chills, and feeling ill over the last few days. Patient states that she had this drained by her primary care provider 3 days ago, the provider did not get any fluid out of it, she states that it is possible she did not drain any fluid from the cyst itself. Patient endorses swollen lymph nodes in her right groin. Patient has had STD testing 2 times since intercourse with a new partner 2 weeks ago. She states everything has come back negative, she has had some dysuria, some flank pain, denies any urinary frequency or urgency. She states that her tetanus is up-to-date. Related Data Home Medications Medication Instructions Recorded Confirmed fluoxetine 20 mg capsule 20 mg PO BID 04/03/19 08/28/19 prenat.vits,guadalupe,[id number]-[id number]-[id number] 1 tab PO DAILY 05/07/19 08/28/19 cetirizine 10 mg capsule (Zyrtec) 10 mg PO DAILY 08/28/19 08/28/19 Previous Rx's Medication Instructions Recorded [massage] #12 12/02/16 epinephrine 0.3 mg/0.3 mL 0.3 mg (0.3 mL) IM PRN PRN #1 ea 03/23/18 injection, auto-injector (EpiPen 2-Al) fluticasone propionate 50 2 spray NASAL DAILY #9.9 gram 03/18/19 mcg/actuation nasal spray,suspension (Flonase Allergy Relief) cephalexin 500 mg tablet 500 mg PO BID 5 Days #10 tab 01/23/22 doxycycline hyclate 100 mg capsule 100 mg PO BID 5 Days #10 cap 01/23/22 naproxen sodium 220 mg tablet 220 mg PO BID PRN #30 tab 01/23/22 oxycodone-acetaminophen 5 mg-325 1 tab PO Q8H PRN #7 tab 01/23/22 mg tablet (Percocet) Allergies Allergy/AdvReac Type Severity Reaction Status Date / Time hydrocodone [From Vicodin] Allergy Intermediate Hives and Verified 08/28/19 15:08 Swelling latex [LATEX] Allergy Unknown Verified 08/28/19 15:08 Sulfa (Sulfonamide Allergy Hives Verified 08/28/19 15:08 Antibiotics) Review of Systems <NELSON Hernandez - Last Filed: 01/23/22 16:29> Review of Systems Narrative: General: denies fever, chills, malaise, sweats, fatigue Head/Neck: denies headache, neck pain, dizziness Eyes: denies visual changes, eye pain Cardio: denies chest pain, palpitations, edema Respiratory: denies dyspnea, cough, orthopnea GI: denies abdominal pain, nausea, vomiting, or diarrhea :, right labial Bartholin gland cyst is swollen, tender and feels like it is full of fluid, she denies dysuria, denies hematuria, urinary retention, frequency or incontinence MSK: denies joint pain, muscle weakness Skin: denies rash, itching, skin lesions or other Neuro: denies numbness, tingling Patient History <NELSON Hernandez - Last Filed: 01/23/22 16:29> Medical History Abnormal Pap smear of cervix (2003) Anxiety (Unknown) Bipolar disorder (~2012) Depression (Unknown) Hyperthyroidism (Unknown) Plantar fasciitis (02/2017) PTSD (post-traumatic stress disorder) (Unknown) Tear meniscus knee (Unknown) Whiplash (04/2017) Family History Grandmother Breast cancer Mother Hypothyroidism Social History Smoking Status: Current some day smoker Smoking Status: Current some day smoker alcohol intake frequency: 0-2 drinks per day Substance Use Type: does not use Exam <NELSON Hernandez - Last Filed: 01/23/22 16:29> Narrative Exam Narrative: Independently reviewed vitals signs and nursing notes. General: cooperative, comfortable, in no acute distress, well developed and well groomed Head: atraumatic, symmetrical facial expressions Neck: supple, atraumatic, without lymphadenopathy. Eyes: pupils equal round and reactive, EOMI, conjunctiva normal Nose: nares patent, no rhinorrhea Mouth/Throat: uvula midline, moist mucus membranes Cardiovascular: regular rate and rhythm, no peripheral edema, warm extremities Respiratory: normal effort, able to speak in complete sentences, no audible wheezing, stridor, or rales. No retractions or tachypnea. GI: abdomen soft, nontender to palpation, nondistended, no masses, no exquisite tenderness with exam, without guarding or rebound. 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 lymphadenopathy, shashank palpable lymph nodes less than 2 cm, right labial Bartholin gland cyst is fluctuant, approximately 3 cm x 2 cm, firm and fluctuant, no surrounding cellulitis or discharge MSK: moves all extremities, ambulatory w/steady gait, neurovascularly intact, no weakness Skin: brisk capillary refill, no rash, no erythema Neuro: normal speech and cognition, A&O x3, normal tone Psych: mental status is grossly normal, congruent mood, normal affect, pleasant and cooperative Initial Vital Signs Initial Vital Signs: Vital Signs Temperature 97.9 F 01/23/22 13:37 Pulse Rate 74 01/23/22 13:37 Respiratory Rate 01/23/22 13:37 Blood Pressure 120/60 01/23/22 13:37 Pulse Oximetry 99 01/23/22 13:37 <Benjy Anderson DO - Last Filed: 01/23/22 18:06> Initial Vital Signs Initial Vital Signs: Vital Signs Temperature 97.9 F 01/23/22 13:37 Pulse Rate 74 01/23/22 13:37 Respiratory Rate 22 01/23/22 13:37 Blood Pressure 120/60 01/23/22 13:37 Pulse Oximetry 99 01/23/22 13:37 Procedures <NELSON Hernandez - Last Filed: 01/23/22 16:29> Abscess I/D I&D #1: Site: bartholin's gland Side (if applicable): right Sedation/analgesia: none Local Anesthetic: lidocaine 1% and with bicarb Amount of anesthesia used (mL): 3 Technique: needle aspiration and incised with #11 blade Amount of fluid expressed (mL): 8 Irrigation: Yes Packing used?: none Course <NELSON Hernandez - Last Filed: 01/23/22 16:29> Orders Ordered: ED Orders 01/23/22 14:53 Test Urine Stat UA Complete [Urinalysis and Microscopic] Stat Urine Culture Stat 01/23/22 15:10 Wound Culture and Gram Stain Stat Discontinued Medications Doxycycline Hyclate (Doxycycline Hyclate 100 Mg Tablet) 100 mg PO NOW ONE Stop: 01/23/22 15:11 Last Admin: 01/23/22 15:19 Dose: 100 mg Documented by: FABIONER Ketorolac Tromethamine (Ketorolac 30 Mg/Ml Vial) 15 mg IM NOW ONE Stop: 01/23/22 14:20 Last Admin: 01/23/22 14:33 Dose: 15 mg Documented by: BTONER Lidocaine/Sodium Bicarbonate (Lido 1%/Sod Bicarb 8.4% (10ml) 10 Ml Syringe) 10 ml INJ NOW ONE Stop: 01/23/22 14:19 Last Admin: 01/23/22 14:33 Dose: 10 ml Documented by: FABIONEMitchel Vital Signs Vital signs: Vital Signs - 8 hr 01/23/22 13:37 01/23/22 15:43 Temperature 97.9 F Pulse Rate 74 76 Respiratory Rate 22 16 Blood Pressure 120/60 118/55 L Pulse Oximetry 99 99 <Benjy Anderson DO - Last Filed: 01/23/22 18:06> Orders Ordered: ED Orders 01/23/22 14:53 Test Urine Stat UA Complete [Urinalysis and Microscopic] Stat Urine Culture Stat 01/23/22 15:10 Wound Culture and Gram Stain Stat Discontinued Medications Doxycycline Hyclate (Doxycycline Hyclate 100 Mg Tablet) 100 mg PO NOW ONE Stop: 01/23/22 15:11 Last Admin: 01/23/22 15:19 Dose: 100 mg Documented by: FABIONER Ketorolac Tromethamine (Ketorolac 30 Mg/Ml Vial) 15 mg IM NOW ONE Stop: 01/23/22 14:20 Last Admin: 01/23/22 14:33 Dose: 15 mg Documented by: BTONER Lidocaine/Sodium Bicarbonate (Lido 1%/Sod Bicarb 8.4% (10ml) 10 Ml Syringe) 10 ml INJ NOW ONE Stop: 05/01/22 14:19 Last Admin: 01/23/22 14:33 Dose: 10 ml Documented by: BTONER Vital Signs Vital signs: Vital Signs - 8 hr 01/23/22 13:37 01/23/22 15:43 Temperature 97.9 F Pulse Rate 74 76 Respiratory Rate 22 16 Blood Pressure 120/60 118/55 L Pulse Oximetry 99 99 MDM - Skin/Abscess/Foreign Bdy <Licha Whitaker [facility] - Last Filed: 01/23/22 16:29> Lab Data Labs: Lab Results 01/23/22 01/23/22 Range/Units 14:53 14:53 Urine Color Yellow Urine Appearance Clear Urine pH 6.5 (4.5-8.0) Ur Specific [place] <=1.005 (1.000-1.035) Urine Protein Negative (Negative) Urine Glucose (UA) Negative (Negative) g/dL Urine Ketones Negative (NEGATIVE) Urine Occult Blood Negative (Negative) Urine Nitrate Negative (Negative) Urine Bilirubin Negative (NEGATIVE) Urine Urobilinogen 0.2 (0.2) E.U./dL Ur Leukocyte Esterase Trace H (NEGATIVE) Urine RBC None seen (0-5/HPF) Urine WBC 1-5/hpf (0-5/HPF) Ur Squamous Epith Cells 1-5 /hpf (0-5/HPF) Urine Bacteria Few (2-10) H (None) Ur Culture Indicated? Specimen cultured Urine Test Negative (Negative) MDM Narrative Medical decision making narrative: This is a pleasant 41-year-old female presents to the emergency department complaining of right Bartholin gland swelling and pain since it was attempted to be drained by her primary care provider 3 days ago. Patient states it did not go down in size afterwards, the provider was unable to get any fluid out of it, she states that she has had a fever, chills and sweats for the last 2 days, feels nauseated, and unwell. Patient states she had a new sexual partner 2 weeks ago, she has had STD testing 2 times without any negative results, denies any abnormal vaginal discharge. Patient's right labial Bartholin gland cyst was drained, aspirated with an 18 gauge needle for 8 mils of purulence, malodorous drainage, a 11 blade used for a stab incision, all drainage was expressed out of the wound and sent for culture. This is pending. Patient was started on doxycycline, encouraged to use warm compresses and continue Sitz baths until improving. She is encouraged to follow-up with her primary care provider, return to the emergency department for any worsening. She was given Toradol in the emergency department today. Patient is appropriate and amenable to discharge home. Vital signs are stable on repeat examination is unremarkable. Patient has been informed of results. Patient has been given strict return to ER precautions for any new or worsening symptoms. Patient understands to follow up closely with outpatient providers as instructed. Patient understands plan and agrees to discharge home. All questions and concerns answered at this time. <Benjy Anderson, DO - Last Filed: 01/23/22 18:06> Lab Data Labs: Lab Results 01/23/22 01/23/22 Range/Units 14:53 14:53 Urine Color Yellow Urine Appearance Clear Urine pH 6.5 (4.5-8.0) Ur Specific [place] <=1.005 (1.000-1.035) Urine Protein Negative (Negative) Urine Glucose (UA) Negative (Negative) g/dL Urine Ketones Negative (NEGATIVE) Urine Occult Blood Negative (Negative) Urine Nitrate Negative (Negative) Urine Bilirubin Negative (NEGATIVE) Urine Urobilinogen 0.2 (0.2) E.U./dL Ur Leukocyte Esterase Trace H (NEGATIVE) Urine RBC None seen (0-5/HPF) Urine WBC 1-5/hpf (0-5/HPF) Ur Squamous Epith Cells 1-5 /hpf (0-5/HPF) Urine Bacteria Few (2-10) H (None) Ur Culture Indicated? Specimen cultured Urine Test Negative (Negative) Discharge Plan Departure Patient Disposition: Home Clinical Impression: Abscess of right Bartholin's gland UTI (urinary tract infection) Qualifiers: Urinary tract infection type: acute cystitis Hematuria presence: without hematuria Qualified Code(s): N30.00 - Acute cystitis without hematuria Instructions: DI for Vulvar Abscess Activity Restrictions/Additional Instructions: *You have been diagnosed with Bartholin abscess and likely a UTI. I have called in K[facility]exin to [facility] for your possible UTI, and doxycycline to treat your abscess. They are both for 5 days, please use both antibiotics and eat a healthy diet, stay hydrated you should start to feel better soon. Please follow-up with your primary doctor or with OBGYN from [facility] for another evaluation of this. If this gets any worse, I wanted to be evaluated by 1 of them or again in the emergency department. We can always ultrasound it to see how deep it goes. Should start to get better soon with these antibiotics. I do not think that this is because an STD, it is likely that this started just because of the new partner and the gland could have gotten clogged. Please continue to do Sitz baths and warm compresses to help encourage drainage. Thank you for trusting us with your care, please follow-up with your primary doctor and other care providers, do not take any ibuprofen today, called in naproxen that you start taking tomorrow, doxycycline, cephalexin, and oxycodone with Tylenol in it. *What to do: *Please continue to take your regular medications as directed. [ x] New medication prescriptions sent to your pharmacy: [[facility] ] [ ] New medication written as a paper prescription [ ] No new medications given *Please follow up with your primary care provider in 2-3 days, call for an appointment. Let them know you were seen in the Emergency Department and that we asked that you be seen for follow-up. We will electronically transmit a record of today's note if your PCP is in our system *If you do not have a primary care provider please contact [phone] to establish care with one of the [facility] primary care providers. *Return to Emergency Department if you should have any new, worsening or concerning symptoms, such as [fever greater than 101F, chills, worsening pain, persistent vomiting or other bothersome symptoms] Prescriptions: New doxycycline hyclate 100 mg capsule 100 mg PO BID 5 Days Qty: 10 0RF naproxen sodium 220 mg tablet 220 mg PO BID PRN (Reason: pain) Qty: 30 0RF oxycodone-acetaminophen [Percocet] 5-325 mg tablet 1 tab PO Q8H PRN (Reason: pain) Qty: 7 0RF cephalexin 500 mg tablet 500 mg PO BID 5 Days Qty: 10 0RF No Action fluticasone propionate [Flonase Allergy Relief] 50 mcg/actuation spray,suspension 2 spray NASAL DAILY Qty: 9.9 0RF Rx Instructions: administer into each nostril [massage] Qty: 12 0RF epinephrine [EpiPen 2-Al] 0.3 mg/0.3 mL auto-injector 0.3 mg IM PRN PRN (Reason: anaphylaxis) Qty: 1 2RF prenat.vits,guadalupe,rks-begg-qiyok tablet 1 tab PO DAILY 0RF Zyrtec 10 mg capsule 10 mg PO DAILY 0RF fluoxetine 20 mg capsule 20 mg PO BID 0RF Label Comments: take 1 capsule by mouth every morning and at noon Referrals: Brandie Ding FNP-JASMIN [Primary Care Provider] - [place],MD Zari [Family Provider] - <Benjy Anderson, - Last Filed: 01/23/22 18:06> Cosign ED Attending Cosignature Attestation: Dr Anderson Co-Sign Statement: I was available for consultation during this patient's emergency department visit. This chart is signed by myself for administrative purposes only. I did not have direct contact with this patient during this visit. They were seen independently by the APC.
[2022-01-23] MEDS: KETOROLAC 30 MG/ML VIAL 15 MG IM (14:33)
[2022-01-23] MEDS: LIDO 1%/SOD BICARB 8.4% (10ML) 10 ML SYRINGE INJ (14:33)
[2022-01-23 15:03] LABS: Appearance Urine UA CLEAR; Bilirubin Urine UA NEGATIVE (NEGATIVE); Color Urine UA YELLOW; Glucose Urine UA NEGATIVE (Negative); Ketones Urine UA NEGATIVE (NEGATIVE); Leukocyte Esterase Urine UA TRACE (NEGATIVE); Nitrite Urine UA NEGATIVE (Negative); Occult Blood Urine UA NEGATIVE (Negative); Protein Urine UA NEGATIVE (Negative); Specific Gravity Urine UA <=1.005 (1.000-1.035); Urobilinogen Urine UA 0.2 E.U./dL (0.2)
[2022-01-23 15:08] LABS: Pregnancy Test Urine Negative (Negative)
[2022-01-23 15:11] LABS: Bacteria Urine Few (2-10); Culture Indicated Urine Specimen Cultured; RBC Urine None Seen (0-5/HPF); Squamous Epithelial Cell Urine 1-5 /HPF (0-5/HPF); WBC Urine 1-5/HPF (0-5/HPF); pH Urine UA 6.5 (4.5-8.0)
[2022-01-23] MEDS: DOXYCYCLINE HYCLATE 100 MG TABLET PO (15:19)
[2022-01-23 15:43] VITALS: BP 118/55; PULSE 76; RESP 16; O2SAT 99
--- NOTE | 2022-01-28 16:10 | PC.NURSE ---
Pt called to follow up on her positive wound culture. pt already taking doxy and keflex x 5 days which covers infection per Dr Doan. Pt advised to follow up with OBGYN and return to the ED for increased infection.
== END 2022-01-23 15:43 | disposition home or self-care (01) ==
PROVIDERS: Emergency Provider Nurse Practitioner Critical Care Medicine; Family Provider Obstetrics & Gynecology; PCP Nurse Practitioner Family
DX: N75.1 Abscess of Bartholin's gland (principal); N30.00 Acute cystitis without hematuria
CPT/HCPCS: 56420; 81001; 81025; 87070; 87075; 87077; 87086; 87205; 96372; 99283; 99284; J1885

== ENCOUNTER 2022-12-17 19:36 | Emergency (ER) | payer OTHER, MEDICAID, SELFPAY ==
[2022-12-17 19:42] VITALS: BP 125/75; PULSE 99; RESP 16; TEMP 36.7; O2SAT 100; BMI 22.3
--- NOTE | 2022-12-17 19:46 | DI.RAD.S_ITS ---
PROCEDURE: XR SHOULDER LT MIN 2V INDICATIONS: fall yesterday, pain limited ROM TECHNIQUE: 3 views of the shoulder were acquired. COMPARISON: None. FINDINGS: Bones: No fractures or dislocations. No suspicious bony lesions. Visualized ribs appear intact. Soft tissues: No suspicious soft tissue calcifications. The visualized lung demonstrates an unremarkable appearance. IMPRESSION: Normal shoulder plain films. If it would be helpful for clinical management decision making, please consider a dedicated, scheduled shoulder MRI for further evaluation (assuming that there is no contraindication). Dictated by: Efraín Robison M.D. on 12/17/2022 at 19:21 Approved by: Efraín Robison M.D. on 12/17/2022 at 19:22
--- NOTE | 2022-12-18 00:33 | ED.GENADULT ---
HPI - General Adult General Chief complaint: Extremity Injury, Upper Stated complaint: Fall yesterday, L shoulder pain Time Seen by Provider: 12/18/22 00:07 Mode of arrival: Ambulatory History of Present Illness HPI narrative: Otherwise healthy 42-year-old woman who was walking her 120 lb dog when the dog began to pull in the leash the patient fell backward landing on her shoulder with the dog continuing to pull on the left arm. She found that it was painful enough last night that she was woken up any time she rolled onto the shoulder. She is been trying to support the shoulder today but is concerned that there is some asymmetry between the shoulders and the pain is worsening. Related Data Home Medications Medication Instructions Recorded Confirmed fluoxetine 20 mg capsule 20 mg PO BID 04/03/19 02/04/22 prenat.vits,guadalupe,mpk-dkit-xgnid 1 tab PO DAILY 05/07/19 02/04/22 cetirizine 10 mg capsule (Zyrtec) 10 mg PO DAILY 08/28/19 02/04/22 topiramate 50 mg tablet 50 mg PO BID 02/04/22 02/04/22 Previous Rx's Medication Instructions Recorded [massage] ##12 12/02/16 epinephrine 0.3 mg/0.3 mL 0.3 mg (0.3 mL) IM PRN PRN 03/23/18 injection, auto-injector (EpiPen anaphylaxis #1 ea 2-Al) fluticasone propionate 50 2 spray intranasal DAILY #9.9 grams 03/18/19 mcg/actuation nasal spray,suspension (Flonase Allergy Relief) oxycodone-acetaminophen 5 mg-325 1 tab PO Q6H PRN pain #14 tabs 12/18/22 mg tablet Allergies Allergy/AdvReac Type Severity Reaction Status Date / Time hydrocodone [From Vicodin] Allergy Intermediate Hives and Verified 12/17/22 19:45 Swelling latex [LATEX] Allergy Unknown Verified 12/17/22 19:45 Sulfa (Sulfonamide Allergy Hives Verified 12/17/22 19:45 Antibiotics) Patient History Medical History (Updated 12/18/22 @ 00:54 by Michelle Pedro MD) Abnormal Pap smear of cervix (2003) Anxiety (Unknown) Bipolar disorder (~2012) Depression (Unknown) Hyperthyroidism (Unknown) Plantar fasciitis (02/2017) PTSD (post-traumatic stress disorder) (Unknown) Tear meniscus knee (Unknown) Whiplash (04/2017) Family History Grandmother Breast cancer Mother Hypothyroidism Social History Smoking Status: Current some day smoker Smoking Status: Current some day smoker alcohol intake frequency: 0-2 drinks per day Substance Use Type: marijuana Exam Initial Vital Signs Initial Vital Signs: Vital Signs Temperature 98.0 F 12/17/22 19:42 Pulse Rate 99 H 12/17/22 19:42 Respiratory Rate 16 12/17/22 19:42 Blood Pressure 125/75 12/17/22 19:42 Pulse Oximetry 100 12/17/22 19:42 Oxygen Delivery Method Room Air 12/17/22 19:42 General: Alert appropriate in no acute distress Respiratory: Able to speak in full sentences, no obvious respiratory distress Skin: No obvious rashes, warm and dry extremity: Left AC joint with tenderness and slight step-off. Decreased range of motion secondary to pain. Neurovascularly intact. No tenderness over the humeral head or deltoid insertion. Neurologic: Grossly intact no obvious asymmetries or abnormalities Psych: appropriate insight and affect, cooperative Course Orders Ordered: ED Orders 12/17/22 19:46 XR shoulder LT min 2V Stat Vital Signs Vital signs: Vital Signs - 8 hr 12/17/22 19:42 Temperature 98.0 F Pulse Rate 99 H Respiratory Rate 16 Blood Pressure 125/75 Pulse Oximetry 100 Oxygen Delivery Method Room Air Medical Decision Making Imaging Data XR shoulder: Radiologist's Impression: FINDINGS:? ? Bones:? No fractures or dislocations.? No suspicious bony lesions.? Visualized ribs appear intact.? ? Soft tissues:? No suspicious soft tissue calcifications.? The visualized lung demonstrates an unremarkable appearance. ? ? IMPRESSION:? Normal shoulder plain films. ? If it would be helpful for clinical management decision making, please consider a dedicated, scheduled shoulder MRI for further evaluation (assuming that there is no contraindication).? ? ? Dictated by: Efraín Robison M.D. on 12/17/2022 at 19:21 ? ? MDM Narrative Medical decision making narrative: CC:Acute left shoulder pain. new diagnosis, uncertain prognosis Corroborating data: Data collected from: patient, Differential considered: shoulder fracture, humeral fracture, AC separation, rotator cuff tear, Dislocation Exam documented above, pertinent findings include: joint with tenderness and swelling over the AC joint with 1-2 cm of step-off. Neurovascularly intact. Tenderness with extension and active abduction Imaging studies independently reviewed: shoulder study interpreted is normal. on independent evaluation concern for AC joint separation Treatments: left arm is placed in a sling. Sling was placed by nursing staff. Evaluated by me after placement and she is neurovascularly intact Discussion: otherwise healthy 42-year-old woman who fell with a jerking motion on the left arm from a large dog pulling on the leash with left shoulder pain concern for AC joint separation and possibility of rotator cuff tear. She is placed in a sling, discussed pain control, use of ice and she is referred to [facility] with instructions to call them on Monday to schedule an appointment for further evaluation. Disposition: see below, along with detailed discharge instructions that have been reviewed with patient as well as indications for ED re-evaluation and additional outpatient follow up Discharge Plan Departure Patient Disposition: Home Clinical Impression: Acromioclavicular joint separation Qualifiers: Encounter type: initial encounter Laterality: left Qualified Code(s): S43.102A - Unspecified dislocation of left acromioclavicular joint, initial encounter Instructions: DI for Rotator Cuff Injury, DI for AC Joint Separation Activity Restrictions/Additional Instructions: thank you for coming in tonight I am sorry that you injured your shoulder. I am concerned that you the acromioclavicular joint. There is also the possibility of rotator cuff tear. Please use the sling for comfort. Ice to the area of swelling can be helpful Using 400 mg of ibuprofen (2 zqes-cgu-jkrnuok pills) and 1 Tylenol every 6 hours can be very helpful in controlling pain. For severe pain you can use to ibuprofen and 1 Percocet. Please contact [facility] at [phone] to schedule follow-up for acute shoulder injury after having been seen in the emergency department. If you find that you are getting worse or develop any new symptoms, please feel free to return to the emergency department for further evaluation. Prescriptions: New oxycodone-acetaminophen 5-325 mg tablet 1 tab PO Q6H PRN (Reason: pain) Qty: 14 0RF No Action fluticasone propionate [Flonase Allergy Relief] 50 mcg/actuation spray,suspension 2 spray NASAL DAILY Qty: 9.9 0RF Rx Instructions: administer into each nostril [massage] Qty: 12 0RF epinephrine [EpiPen 2-Al] 0.3 mg/0.3 mL auto-injector 0.3 mg IM PRN PRN (Reason: anaphylaxis) Qty: 1 2RF prenat.vits,guadalupe,pcs-lkxc-xjyns tablet 1 tab PO DAILY topiramate 50 mg tablet 50 mg PO BID Zyrtec 10 mg capsule 10 mg PO DAILY fluoxetine 20 mg capsule 20 mg PO BID Patient Comments: take 1 capsule by mouth every morning and at noon Referrals: Brandie Dign, RULA-BC [Primary Care Provider] - Stand Alone Forms: Patient Portal/API
[2022-12-18] MEDS: OXYCODONE/APAP 5/325 PREPACK 1 BOTTLE MISC (01:01)
== END 2022-12-18 01:06 | disposition home or self-care (01) ==
PROVIDERS: Emergency Provider Emergency Medicine; Family Provider Nurse Practitioner Family; PCP Nurse Practitioner Family
DX: S43.102A Unspecified dislocation of left acromioclavicular joint, initial encounter (principal); W18.30XA Fall on same level, unspecified, initial encounter
CPT/HCPCS: 73030; 99283

== ENCOUNTER → 2023-05-10 10:34 | Outpatient (CLI) | payer OTHER, MEDICAID, SELFPAY ==
[2023-05-10 11:13] LABS: Pregnancy Test Urine Negative (Negative)
[2023-05-10 12:32] LABS: Urine N gonorrhoeae NOT DETECTED
[2023-05-10 12:37] LABS: Urine Chlamydia NOT DETECTED
== END ==
PROVIDERS: Family Provider Nurse Practitioner Family; PCP Nurse Practitioner Family; Visit Provider Student in an Organized Health Care Education/Training Program
DX: N89.8 Other specified noninflammatory disorders of vagina (principal); N39.0 Urinary tract infection, site not specified
CPT/HCPCS: 81002; 81025; 87086; 87210; 87491; 87591

== ENCOUNTER 2023-10-16 17:51 | Emergency (ER) | payer OTHER, MEDICAID, SELFPAY ==
[2023-10-16 18:08] VITALS: BP 113/68; PULSE 120; RESP 18; TEMP 36.8; O2SAT 100; BMI 21.4
[2023-10-16] MEDS: LIDOCAINE 1% (PF) 5 ML INJ (18:48)
[2023-10-16 19:01] VITALS: BP 125/71; PULSE 120; RESP 20; O2SAT 99
--- NOTE | 2023-10-16 19:12 | ED.WOUNDLAC ---
HPI - Wound/Laceration General Chief Complaint: Wound/Laceration Stated Complaint: fall, eyebrow laceration Time Seen by Provider: 10/16/23 18:32 History of Present Illness HPI narrative: 43-year-old female presents to the ED status post a brow injury sustained just prior to arrival. Patient states that she had been drinking earlier today, was trying to get into bed when she fell and hit her right brow. Patient denies loss of consciousness patient is not on thinners. No other injuries reported. Bleeding was controlled with pressure. Related Data Home Medications Medication Instructions Recorded Confirmed fluoxetine 20 mg capsule 20 mg PO BID 04/03/19 02/04/22 prenat.vits,guadalupe,dwn-pgyp-bhfsu 1 tab PO DAILY 05/07/19 02/04/22 cetirizine 10 mg capsule (Zyrtec) 10 mg PO DAILY 08/28/19 02/04/22 topiramate 50 mg tablet 50 mg PO BID 02/04/22 02/04/22 Previous Rx's Medication Instructions Recorded [massage] ##12 12/02/16 epinephrine 0.3 mg/0.3 mL 0.3 mg (0.3 mL) IM PRN PRN 03/23/18 injection, auto-injector (EpiPen anaphylaxis #1 ea 2-Al) fluticasone propionate 50 2 spray intranasal DAILY #9.9 grams 03/18/19 mcg/actuation nasal spray,suspension (Flonase Allergy Relief) oxycodone-acetaminophen 5 mg-325 1 tab PO Q6H PRN pain #14 tabs 12/18/22 mg tablet Allergies Allergy/AdvReac Type Severity Reaction Status Date / Time hydrocodone [From Vicodin] Allergy Intermediate Hives and Verified 12/17/22 19:45 Swelling latex [LATEX] Allergy Unknown Verified 12/17/22 19:45 Sulfa (Sulfonamide Allergy Hives Verified 12/17/22 19:45 Antibiotics) Review of Systems Constitutional Constitutional: Denies chills, Denies fatigue, Denies fever(s), Denies frequent falls, Denies lethargy and Denies weakness Eyes Eyes: Denies change in vision, Denies eye discharge, Denies irritation and Denies loss of vision ENT Ears, Nose, Mouth, and Throat: Denies change in voice, Denies dizziness, Denies neck pain, Denies sore throat and Denies throat swelling Cardiovascular Cardiovascular: Denies chest pain, Denies irregular heart rhythm, Denies lightheadedness, Denies palpitations, Denies dyspnea, Denies dyspnea on exertion and Denies orthopnea Respiratory Respiratory: Denies cough, Denies dyspnea, Denies dyspnea on exertion and Denies wheezing Gastrointestinal Gastrointestinal: Denies abdominal pain, Denies change in bowel habits, Denies diarrhea, Denies nausea and Denies vomiting Musculoskeletal Musculoskeletal: Denies neck pain and Denies numbness Integumentary/Breasts Skin/Breast: Denies pruritus, Denies erythema, Denies rash and Reports wounds Neurologic Neurologic: Denies behavioral changes, Denies confusion, Denies dizziness, Denies frequent falls, Denies loss of vision, Denies numbness and Denies weakness Psychiatric Psychiatric: Denies anxiety, Denies behavioral changes, Denies confusion, Denies depression, Denies homicidal ideation and Denies suicidal ideation Endocrine Endocrine: Denies fatigue, Denies flushing and Denies palpitations Hematologic/Lymphatic Hematologic/Lymphatic: Denies easy bruising Allergic/Immunologic Allergic/Immunologic: Denies urticaria, Denies throat swelling and Denies wheezing Patient History Medical History Hyperthyroidism (Unknown) Anxiety (Unknown) Plantar fasciitis (02/2017) Tear meniscus knee (Unknown) PTSD (post-traumatic stress disorder) (Unknown) Whiplash (04/2017) Bipolar disorder (~2012) Depression (Unknown) Abnormal Pap smear of cervix (2003) Family History Grandmother Breast cancer Mother Hypothyroidism Social History Smoking Status: Current some day smoker Smoking Status: Current some day smoker alcohol intake frequency: 0-2 drinks per day Alcohol type: wine Substance Use Type: marijuana Exam Narrative Exam Narrative: Const General:?cooperative, healthy appearing and comfortable [facility] Head:?normal to inspection Ears:?hearing grossly normal bilaterally Nose:?external nose normal Face and sinus:?normal facial exam and sinuses nontender Mouth:?oral mucosae normal Throat:?posterior oropharynx normal Eyes General:?appearance normal, both eyes and all related structures Neck Neck:?normal visual inspection and no lymphadenopathy noted Resp Effort & Inspection:?normal respiratory effort Auscultation:?clear to auscultation bilaterally Cardio Rate:?regular rate Rhythm:?regular rhythm Integumentary There is a 1.5 cm laceration to the right brow. Bleeding is controlled with pressure. Neuro General:?patient alert, patient awake and patient oriented x3 Initial Vital Signs Initial Vital Signs: Vital Signs Temperature 98.3 F 10/16/23 18:08 Pulse Rate 120 H 10/16/23 18:08 Respiratory Rate 18 10/16/23 18:08 Blood Pressure 113/68 10/16/23 18:08 Pulse Oximetry 100 10/16/23 18:08 Oxygen Delivery Method Room Air 10/16/23 18:08 Procedures Laceration Repair Laceration 1: Site: face Side (If applicable): right Size (cm): 1.5 Description: linear Local Anesthetic: lidocaine 1% Amount of anesthesia used (mL): 1 Pre-repair: wound explored, irrigated extensively and deep structures intact Skin layer closed with: nylon Skin layer suture size: 5-0 Number of sutures: 3 Technique: simple, interrupted Course Orders Ordered: Discontinued Medications Lidocaine HCl (Lidocaine 1% (Pf) 5 Ml) 5 ml INJ NOW ONE Stop: 10/16/23 18:35 Last Admin: 10/16/23 18:48 Dose: 5 ml Documented By: SPF Vital Signs Vital signs: Vital Signs - 8 hr 10/16/23 18:08 10/16/23 19:01 Temperature 98.3 F Pulse Rate 120 H 120 H Respiratory Rate 18 20 Blood Pressure 113/68 125/71 Pulse Oximetry 100 99 Oxygen Delivery Method Room Air Room Air MDM - Wound/Laceration MDM Narrative Medical decision making narrative: 43-year-old female presents to the ED status post a brow injury sustained just prior to arrival. No imaging indicated at this time, given mechanism of injury and patient is not on thinners. The brow laceration was repaired with 3 sutures. Suture removal and wound care discussed with patient. ED return precautions discussed with patient. Patient verbalized understanding. Medical records reviewed: Yes Discharge Plan Departure Patient Disposition: Home Clinical Impression: Laceration Instructions: DI for Laceration Repair Activity Restrictions/Additional Instructions: You were evaluated in the ED today for a brow laceration. Your laceration was repaired with 3 sutures. The sutures will need to be removed in 5-7 days. You may return to the ED, go to your PCP or a walk-in clinic for suture removal. Please watch for signs of infection including worsening redness, pain, swelling, warmth, discharge. Return to the ED if you note any signs of infection. Please keep the wound clean and dry for the 1st 24 hours, after which you may wash gently with soap and water. Please do not keep any wet dressings on for any period of time. Prescriptions: No Action fluticasone propionate [Flonase Allergy Relief] 50 mcg/actuation spray,suspension 2 spray NASAL DAILY Qty: 9.9 0RF Rx Instructions: administer into each nostril [massage] Qty: 12 0RF epinephrine [EpiPen 2-Al] 0.3 mg/0.3 mL auto-injector 0.3 mg IM PRN PRN (Reason: anaphylaxis) Qty: 1 2RF prenat.vits,guadalupe,zgr-ykhl-nocye tablet 1 tab PO DAILY topiramate 50 mg tablet 50 mg PO BID Zyrtec 10 mg capsule 10 mg PO DAILY fluoxetine 20 mg capsule 20 mg PO BID Patient Comments: take 1 capsule by mouth every morning and at noon oxycodone-acetaminophen 5-325 mg tablet 1 tab PO Q6H PRN (Reason: pain) Qty: 14 0RF Referrals: Brandie Ding FNP-BC [Primary Care Provider] - Stand Alone Forms: Patient Portal/API
--- NOTE | 2023-10-16 19:14 | PC.NURSE ---
Provider placed 3x sutures in right brow. Pt tolerated procedure well.
== END 2023-10-16 19:12 | disposition home or self-care (01) ==
PROVIDERS: Emergency Provider Student in an Organized Health Care Education/Training Program; Family Provider Nurse Practitioner Family; PCP Nurse Practitioner Family
DX: S01.111A Laceration without foreign body of right eyelid and periocular area, initial encounter (principal); W18.30XA Fall on same level, unspecified, initial encounter
CPT/HCPCS: 12011; 99283

== ENCOUNTER → 2024-06-04 09:25 | Outpatient (CLI) | payer OTHER, MEDICAID, SELFPAY | PROVIDERS: Family Provider Nurse Practitioner Family; PCP Nurse Practitioner Family; Visit Provider Physician Assistant | DX: J02.9 Acute pharyngitis, unspecified (principal) | CPT/HCPCS: 87070; 87880 ==

== ENCOUNTER 2024-06-19 19:20 | Emergency (ER) | payer OTHER, MEDICAID, SELFPAY ==
[2024-06-19 19:29] VITALS: BP 131/62; PULSE 83; RESP 16; TEMP 36.7; O2SAT 100; BMI 21.9
--- NOTE | 2024-06-19 19:34 | EKG_ITS ---
[address] [address] Test Date: 2024-06-19 Pat Name: Gita Estrada Department: [facility] Room: Gender: Female [employer]: : [id number] Requested By: Order Number: [id number] Reading MD: Mc Zhong MD Measurements Intervals [place] Rate: 63 P: MI: 138 QRS: 126 QRSD: 82 T: 122 QT: 436 QTc: 446 Interpretive Statements Normal sinus rhythm Lateral infarct , age undetermined Electronically Signed On 06-20-2024 8:26:34 PDT by Mc Zhong MD
[2024-06-19 19:52] LABS: Add Manual Diff / Slide Review NO; Basophils Absolute Auto 0 /uL (0-100); Basophils Percent Auto 0.8 % (0-2); Eosinophils Absolute Auto 100 /uL (0-450); Eosinophils Percent Auto 1.1 % (2-4); Hematocrit 38.5 % (36-46); Hemoglobin 12.6 g/dL (12.0-16.0); Lymphocytes Absolute Auto 2400 /uL (1100-4500); Lymphocytes Percent Auto 42.6 % (25-40); Mean Corpuscular HGB Conc 32.8 % (30-36); Mean Corpuscular Hemoglobin 30.5 PG (26-34); Mean Corpuscular Volume 92.8 fL (80-100); Monocytes Absolute Auto 300 /uL (0-900); Monocytes Percent Auto 6.1 % (3-14); Neutrophils Absolute Auto 2700 /uL (1500-7000); Neutrophils Percent Auto 49.4 % (50-75); Platelet Count 282 X10^3/uL (150-400); Red Blood Cell Count 4.15 X10^6/uL (4.0-5.2); Red Cell Distribution Width 14.4 % (11.6-14.8); White Blood Cell Count 5.5 X10^3/uL (4.5-11.0)
[2024-06-19 20:02] LABS: Alanine Aminotransferase 11 IU/L (<35); Albumin 4.4 g/dL (3.5-5.0); Albumin Globulin Ratio 1.3 (1.0-2.8); Alkaline Phosphatase 73 U/L (38-126); Aspartate Aminotransferase 25 IU/L (14-36); BUN Creatinine Ratio 18.8 (6-22); Bilirubin Total 0.5 mg/dL (0.2-1.3); Blood Urea Nitrogen 12 mg/dL (7-17); Calcium 9.3 mg/dL (8.4-10.2); Carbon Dioxide 23 mmol/L (22-32); Chloride 104 mmol/L (98-107); Estimated Glomerular Filt Rate > 60 mL/min (>60); Globulin 3.4 g/dL (1.7-4.1); Glucose 90 mg/dL (70-100); HEMOLYSIS < 15 (0-50); Lipase 127 U/L (23-300); Potassium 3.3 mmol/L (3.4-5.1); Sodium 133 mmol/L (137-145); Total Protein 7.8 g/dL (6.3-8.2)
--- NOTE | 2024-06-19 22:20 | ED_ITS ---
HPI - Abdominal Pain General Chief Complaint: Abdominal Pain Stated Complaint: nausea, abd px Time Seen by Provider: 06/19/24 19:41 Source: patient Mode of arrival: Ambulatory History of Present Illness HPI narrative: 44yoF presents for 1 day of midepigastric pain, nausea, vomiting. Also states she feels a mass in her upper abdomen just under her breastbone. No medications taken prior to arrival. Denies hx of abdominal surgeries. Related Data Home Medications Medication Instructions Recorded Confirmed fluoxetine 20 mg capsule 20 mg PO BID 04/03/19 06/04/24 prenat.vits,guadalupe,[id number] 1 tab PO DAILY 05/07/19 06/04/24 topiramate 50 mg tablet 50 mg PO BID 02/04/22 06/04/24 Previous Rx's Medication Instructions Recorded [massage] ##12 12/02/16 epinephrine 0.3 mg/0.3 mL 0.3 mg (0.3 mL) IM PRN PRN 03/23/18 injection, auto-injector (EpiPen anaphylaxis #1 ea 2-Al) fluticasone propionate 50 2 spray intranasal DAILY #9.9 grams 03/18/19 mcg/actuation nasal spray,suspension (Flonase Allergy Relief) naproxen 500 mg tablet 500 mg PO BID #30 tabs 06/04/24 ondansetron 4 mg disintegrating 4 mg PO Q8H PRN nausea and 06/19/24 tablet vomiting #30 tabs Allergies Allergy/AdvReac Type Severity Reaction Status Date / Time hydrocodone [From Vicodin] Allergy Intermediate Hives and Verified 06/19/24 19:34 Swelling latex [LATEX] Allergy Unknown Verified 06/19/24 19:34 Sulfa (Sulfonamide Allergy Hives Verified 06/19/24 19:34 Antibiotics) Patient History Medical History Hyperthyroidism (Unknown) Anxiety (Unknown) Plantar fasciitis (02/2017) Tear meniscus knee (Unknown) PTSD (post-traumatic stress disorder) (Unknown) Whiplash (04/2017) Bipolar disorder (~2012) Depression (Unknown) Abnormal Pap smear of cervix (2003) Family History Grandmother Breast cancer Mother Hypothyroidism Social History Smoking Status: Current some day smoker Smoking Status: Current some day smoker alcohol intake frequency: 0-2 drinks per day Alcohol type: wine Substance Use Type: marijuana Exam Initial Vital Signs Initial Vital Signs: Vital Signs Temperature 98.1 F 06/19/24 19:29 Pulse Rate 83 06/19/24 19:29 Respiratory Rate 16 06/19/24 19:29 Blood Pressure 131/62 06/19/24 19:29 Pulse Oximetry 100 06/19/24 19:29 Oxygen Delivery Method Room Air 06/19/24 19:29 Const: Awake, alert, no acute distress, nontoxic appearing Cardiac: regular rate, regular rhythm RESP: unlabored, clear bilaterally, no wheezing GI: Soft, nontender, nondistended, Xiphoid process in area that patient states mass is located. Skin: Warm, Dry, intact, no rashes Neuro: AO x3, CN II-XII grossly intact, moves all extremities Course Orders Ordered: ED Orders 06/19/24 19:34 EKG-12 Lead Stat 06/19/24 19:44 Complete Blood Count AUTO DIFF Stat Comprehensive Metabolic Panel Stat Lipase Stat 06/19/24 22:20 CT abdomen pelvis w con Stat Discontinued Medications Acetaminophen (Acetaminophen 325 Mg Tablet) 975 mg PO NOW ONE Stop: 06/19/24 23:12 Last Admin: 06/19/24 23:29 Dose: 975 mg Documented By: Sodium Chloride (Normal Saline 0.9%) 1,000 mls @ 1,000 mls/hr IV BOLUS ONE Stop: 06/19/24 23:20 Last Infusion: 06/19/24 23:34 Dose: Infused Documented By: Admin: 06/19/24 22:37 Dose: 1,000 mls/hr Documented By: Ondansetron HCl (Ondansetron 4 Mg/2 Ml Inj) 4 mg IV NOW PRN PRN Reason: Nausea And Vomiting Ondansetron HCl (Ondansetron 4 Mg Odt) 4 mg PO NOW PRN PRN Reason: Nausea And Vomiting Ondansetron HCl (Ondansetron 4 Mg/2 Ml Inj) 4 mg IV NOW ONE Stop: 06/19/24 22:22 Last Admin: 06/19/24 22:37 Dose: 4 mg Documented By: JR Vital Signs Vital signs: Vital Signs - 8 hr 06/19/24 19:29 06/19/24 23:28 Temperature 98.1 F 98.5 F Pulse Rate 83 65 Respiratory Rate 16 18 Blood Pressure 131/62 113/75 Pulse Oximetry 100 98 Oxygen Delivery Method Room Air Room Air MDM - Abdominal Pain Differential Diagnosis Differential diagnosis: Likely abdominal pain, gastroenteritis and pancreatitis Lab Data 06/19/24 19:44 06/19/24 19:44 Labs: Lab Results 06/19/24 Range/Units 19:44 WBC 5.5 (4.5-11.0) X10^3/uL RBC 4.15 (4.0-5.2) X10^6/uL Hgb 12.6 (12.0-16.0) g/dL Hct 38.5 (36-46) % MCV 92.8 (80-100) fL MCH 30.5 (26-34) PG MCHC 32.8 (30-36) % RDW 14.4 (11.6-14.8) % Plt Count 282 (150-400) X10^3/uL Neut % (Auto) 49.4 L (50-75) % Lymph % (Auto) 42.6 H (25-40) % [place] % (Auto) 6.1 (3-14) % Eos % (Auto) 1.1 L (2-4) % Baso % (Auto) 0.8 (0-2) % Neut # (Auto) 2700 (9447-2192) /uL Lymph # (Auto) 2400 (7655-0454) /uL [place] # (Auto) 300 (0-900) /uL Eos # (Auto) 100 (0-450) /uL Baso # (Auto) 0 (0-100) /uL Sodium 133 L (137-145) mmol/L Potassium 3.3 L (3.4-5.1) mmol/L Chloride 104 (98-107) mmol/L Carbon Dioxide 23 (22-32) mmol/L BUN 12 (7-17) mg/dL Creatinine 0.64 (0.52-1.04) mg/dL Estimated GFR > 60 (>60) mL/min BUN/Creatinine Ratio 18.8 (6-22) Glucose 90 (70-100) mg/dL Calcium 9.3 (8.4-10.2) mg/dL Total Bilirubin 0.5 (0.2-1.3) mg/dL AST 25 (14-36) IU/L ALT 11 (<35) IU/L Alkaline Phosphatase 73 (38-126) U/L Total Protein 7.8 (6.3-8.2) g/dL Albumin 4.4 (3.5-5.0) g/dL Globulin 3.4 (1.7-4.1) g/dL Albumin/Globulin Ratio 1.3 (1.0-2.8) Lipase 127 (23-300) U/L Point of care testing: Point of Care Testing Test Results Negative Urine Dip Bedside Urine Glucose Negative Bedside Urine Bilirubin - Negative Bedside Urine Ketone - Negative Urine Specific [place] 1.010 Bedside Urine Occult Blood - Negative Bedside Urine pH 6.0 Bedside Urine Protein - Negative Bedside Urine Urobilinogen - Negative Bedside Urine Nitrite - Negative Bedside Urine Leukocytes - Negative Esterase Imaging Data CT scan - abdomen/pelvis: Radiologist's Impression: PROCEDURE: CT ABDOMEN PELVIS W CON INDICATIONS: n/v/patient reporting midepigastric mass TECHNIQUE: After the administration of intravenous contrast, axial sections acquired from the lung bases to the pubic symphysis. Coronal and sagittal reformats were performed. For radiation dose reduction, the following was used: automated exposure control, adjustment of mA and/or kV according to patient size. COMPARISON: None. FINDINGS: Image quality: Diagnostic. Lower Chest: No significant findings. ABDOMEN: Liver: Mild hepatomegaly; the left hepatic lobe extends below the xiphoid process. The liver measures 18.3 cm in maximum cc diameter. Gallbladder: No radiopaque gallstones or wall thickening. Biliary ducts: No biliary dilation. Pancreas: No ductal dilation. Spleen: Size is within normal limits. Adrenal Glands: No adrenal nodules. Kidneys and Ureters: No hydronephrosis. No solid mass. No complex renal cystic lesion which requires follow up. Stomach and Bowel: Normal colonic caliber, without significant wall thickening. Peritoneum: No abnormal intraperitoneal fluid. No free air. Ventral Wall: No significant ventral hernia. Abdominal Nodes: No retroperitoneal or mesenteric adenopathy by size criteria. Vessels: Aorta and inferior vena cava are normal in size. PELVIS: Pelvic Organs: The uterus is enlarged, with heterogeneous enhancement. Bladder: No bladder wall thickening, accounting for underdistention. Pelvic Nodes: No enlarged lymph nodes. Miscellaneous: No inguinal hernias are seen. Bones: No aggressive osseous abnormality. L5-S1 disc bulge without significant spinal canal narrowing. IMPRESSION: Mild hepatomegaly; the left hepatic lobe extends below the xiphoid process. The uterus is enlarged, with heterogeneous enhancement. Findings may indicate diffuse adenomyosis. Dictated by: Lacho Deleon M.D. on 06/19/2024 at 23:03 Approved by: Lacho Deleon M.D. on 06/19/2024 at 23:07 [facility] Narrative Medical decision making narrative: 1 day of abdominal pain. Patient showed me where her mass was felt, it seems to be the xiphoid process. Laboratory work, imaging ordered. Laboratory work shows no significant abnormalities. Patient able to tolerate p.o. after being given antiemetics. CT shows no acute process. Patient informed of lab and imaging results, recommended close PCP follow up. Anti-emetics sent to pharmacy of choice. Discharge Plan Departure Patient Disposition: Home Clinical Impression: Abdominal pain Instructions: DI for Abdominal Pain-Adult Activity Restrictions/Additional Instructions: Your laboratory work and CT imaging today were normal. Take the prescribed antinausea medications as needed if you feel nauseous again. Follow up with your primary care doctor Prescriptions: New ondansetron 4 mg tablet,disintegrating 4 mg PO Q8H PRN (Reason: nausea and vomiting) Qty: 30 0RF No Action fluticasone propionate [Flonase Allergy Relief] 50 mcg/actuation spray,suspension 2 spray NASAL DAILY Qty: 9.9 0RF Rx Instructions: administer into each nostril naproxen 500 mg tablet 500 mg PO BID Qty: 30 0RF [massage] Qty: 12 0RF epinephrine [EpiPen 2-Al] 0.3 mg/0.3 mL auto-injector 0.3 mg IM PRN PRN (Reason: anaphylaxis) Qty: 1 2RF prenat.vits,guadalupe,[id number] tablet 1 tab PO DAILY topiramate 50 mg tablet 50 mg PO BID fluoxetine 20 mg capsule 20 mg PO BID Patient Comments: take 1 capsule by mouth every morning and at noon Referrals: Brandie Ding FNP-JASMIN [Primary Care Provider] - Stand Alone Forms: Patient Portal/API
[2024-06-19] MEDS: SODIUM CHLORIDE 0.9% 1,000 ML 1000 ML IV (22:37)
[2024-06-19] MEDS: ONDANSETRON 4 MG/2 ML INJ IV (22:37)
[2024-06-19 23:28] VITALS: BP 113/75; PULSE 65; RESP 18; TEMP 36.9; O2SAT 98
[2024-06-19] MEDS: ACETAMINOPHEN 325 MG TABLET 975 MG PO (23:29)
== END 2024-06-19 23:35 | disposition home or self-care (01) ==
PROVIDERS: Emergency Provider Emergency Medicine; Family Provider Nurse Practitioner Family; PCP Nurse Practitioner Family
DX: R10.13 Epigastric pain (principal); R11.2 Nausea with vomiting, unspecified
CPT/HCPCS: 36415; 74177; 80053; 81003; 81025; 83690; 85025; 93005; 93010; 96361; 96374; 99284; J2405; Q9967

== ENCOUNTER → 2024-08-13 09:37 | Outpatient (CLI) | payer OTHER, MEDICAID, SELFPAY ==
[2024-08-13 10:36] LABS: COVID-19 CEPHEID 4-PLEX PCR Negative (Negative); Influenza A - CEPHEID Flu A NEGATIVE (NEGATIVE); Influenza B - CEPHEID Flu B NEGATIVE (NEGATIVE); Respiratory Syncytial Virus Negative (Negative)
== END ==
PROVIDERS: Family Provider Nurse Practitioner Family; PCP Nurse Practitioner Family; Visit Provider Physician Assistant Medical
DX: J02.9 Acute pharyngitis, unspecified (principal)
CPT/HCPCS: 87635; 87400 ×2; 87420; 0241U; 87070; 87880

== ENCOUNTER 2024-10-16 09:45 | Outpatient (RCR) | payer OTHER, MEDICAID, SELFPAY ==
--- NOTE | 2024-08-12 16:22 | PT.OIE ---
Current Diagnoses Other intervertebral disc degeneration, lumbar region with discogenic back pain only (08/12/24) Past Medical History (Last Reviewed 06/20/24 @ 03:12 by Vanesa Harper MD) Abnormal Pap smear of cervix (2003) Anxiety (Unknown) Bipolar disorder (~2012) Depression (Unknown) Hyperthyroidism (Unknown) Plantar fasciitis (02/2017) PTSD (post-traumatic stress disorder) (Unknown) Tear meniscus knee (Unknown) Whiplash (04/2017) Visit Care Team Role Provider Type REYNALDO Brown Attending Provider Non-Staff Family Provider Primary Care Provider Referring Provider Specialty: Medical Address: [address] [place] [address], [id number] Email: Physical Therapy Initial Evaluation PT-OP-A Visit Information Start: 08/08/24 14:04 Freq: Status: Active Protocol: Document 08/12/24 09:49 [facility] (Rec: 08/12/24 10:48 [facility] [id number]) Out-Patient Physical Therapy Visit Information Visit Information Visit Type Initial Evaluation Visit Start Time 09:51 Visit Stop Time 10:36 Visit Number 10/18 Number of SCOOPING MACHINE TENDER Visits 0 PT-OP-B Current Condition Start: 08/08/24 14:04 Freq: Status: Active Protocol: Document 08/12/24 09:49 [facility] (Rec: 08/12/24 10:48 [facility] [id number]) Current Condition History of Current Condition Onset Date Apr 2024 Current Complaints LBP History of Current Condition Was moving a mattress w/a friend and she tripped over the curb and fell back onto her back onto the pavement. 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 Remembers falling and bouncing almost straight up and felt back pain immediately. She has a Cervical issue in the past too. Later had issues at work feeling sick and having a protruded area at sternum. Did CT scan and found a bulge in disc. mom did have back issue also. Prior to this, didn't have back pain. Saw PT about 6 yeras ago for neck and has had injections that helped. DId get a gym membership and has been taking things pretty easy and just walking. She has had a knee and neck issues in the past that stopped her from running. TYpically likes to cycle, lift, and do stair stepper. Occ takes 800mg of ibupofen when it gets really bad. Denies symptoms down legs . Has torn meniscus on L knee when tries to walk and attempts to run, it flares up. Has been told she has a minor scoliosis Prior Treatments and Tests CT of abdomen: Bones: No aggressive osseous abnormality . L5-S1 disc bulge without significant spinal canal narrowing. IMPRESSION: Mild hepatomegaly; the left hepatic lobe extends below the xiphoid process. The uterus is enlarged, with heterogeneous enhancement. Findings may indicate diffuse adenomyosis. Treatment Goals Patient/Caregiver Goals Get back to working out, return to running, be able to squat and lift child and at work PT-OP-C Subjective Start: 08/08/24 14:04 Freq: Status: Active Protocol: Document 08/12/24 09:49 [facility] (Rec: 08/12/24 10:48 [facility] [id number]) Patient Questionnaires Oswestry Low Back Index Oswestry Score 16/50 OP-PT Pain Assessment Location back pain Pain Location Details sacrum and along R iliac crest to lat Scale Used constant 4/10; worst 8/10 Frequency Constant Pain Aggravating Factors Sitting,Lifting Other Pain Aggravating Factors squatting, bad shoes, at night Pain Alleviating Factors Heat Other Pain Alleviating Factors rubbing it, pillow btwn legs PT-OP-D Balance Start: 08/08/24 14:04 Freq: Status: Active Protocol: Document 08/12/24 09:49 [facility] (Rec: 08/12/24 10:48 [facility] [id number]) Balance Tests Single Limb Standing Single Limb- Right >30 sec but pain in back Single Limb- Left >30 but pain in back PT-OP-F Manual Assessment Start: 08/08/24 14:04 Freq: Status: Active Protocol: Document 08/12/24 09:49 [facility] (Rec: 08/12/24 10:48 [facility] [id number]) Manual Assessments Soft Tissue Assessment Soft Tissue Mobility Assessment inc tension R QL, and lat abdomen R PT-OP-G Mobility & Gait Start: 08/08/24 14:04 Freq: Status: Active Protocol: Document 08/12/24 09:49 [facility] (Rec: 08/12/24 10:48 [facility] [id number]) OP Gait Assessment Comments Gait Comments dec stance time on RLE and dec trunk motion PT-OP-J Posture/Palpation/Skin Start: 08/08/24 14:04 Freq: Status: Active Protocol: Document 08/12/24 09:49 [facility] (Rec: 08/12/24 10:48 [facility] [id number]) Posture Evaluation [facility] Postural Classification System [facility] Postural Classifications Posterior/Anterior Vertical Compression Test 1 Elbow Flexion Test 0 Lumbar Protective Mechanism Left AP 0 Lumbar Protective Mechanism Right AP 0 Lumbar Protective Mechanism Left PA 0 Lumbar Protective Mechanism Right PA 0 Comments Posture Comments inversion of L foot, B genu recurvatum, R pelvic shear, L scap higher, L trunk rot, R scap more ant tipped and abd, inc kyphosis, equal greater trochanter and R iliac crest higher PT-OP-K Range of Motion Start: 08/08/24 14:04 Freq: Status: Active Protocol: Document 08/12/24 09:49 [facility] (Rec: 08/12/24 10:48 [facility] [id number]) Lumbar Spine Range of Motion Lumbar Spine Active Percentage Flexion 30 Extension 25 Rotation Left 60 Rotation Right 50 Lateral Flexion Left 75 Lateral Flexion Right 75 Comments feels pain on R w/B SB; big stretch to back w/rot PT-OP-L Special Tests Start: 08/08/24 14:04 Freq: Status: Active Protocol: Document 08/12/24 09:49 [facility] (Rec: 08/12/24 10:48 [facility] [id number]) Special Tests Lumbar Spine Special Tests Straight Leg Raise Comments B positive [place] Test Results R positive hip flexor march Test Results L positive Slump Test Results positive B Other Special Tests Special Tests BP 116/64 PT-OP-M Strength Start: 08/08/24 14:04 Freq: Status: Active Protocol: Document 08/12/24 09:49 [facility] (Rec: 08/12/24 10:48 [facility] [id number]) Hip Strength Hip Manual Muscle Testing Right Flexion (L2) 3 Fair Extension (S1) 3 Fair Abduction 3+ Fair+ Adduction 3+ Fair+ External Rotation 4- Good- Internal Rotation 4- Good- Left Flexion (L2) 3+ Fair+ Extension (S1) 3 Fair Abduction 3+ Fair+ Adduction 3+ Fair+ External Rotation 3+ Fair+ Internal Rotation 3+ Fair+ Comments pain in back B hip ext Knee Strength Knee Manual Muscle Testing R Flexion (S2) 4- Good- Extension (L3) 4- Good- L Flexion (S2) 4- Good- Extension (L3) 4 Good Ankle/Foot Strength Ankle and Foot Manual Muscle Testing B Dorsiflexion (L4) 5 Normal Plantarflexion (S1) 5 Normal Comments Pf tested seated PT-OP-Q Treatments Start: 08/08/24 14:04 Freq: Status: Active Protocol: Document 08/12/24 09:49 [facility] (Rec: 08/12/24 10:48 [facility] [id number]) Self-Care/Home Management Treatment Education Other Education 8 min: edu re: how innominate dysfuction, abdominal restrictions and hip immobility on R likely related to pain; discussed coccyx dysfunction and how it can cause inc pain w/neural tension in spine and how coccyx is likely affected w/ fall PT-OP-T Assessment and Plan Start: 08/08/24 14:04 Freq: Status: Active Protocol: Document 08/12/24 09:49 [facility] (Rec: 08/12/24 10:48 [facility] [id number]) Physical Therapy Assessment Rehab Potential Rehabilitation Potential Good Evaluation Complexity Number of Personal Factors/Comorbidities 1-2 Number of Body Systems Impaired 4 or More Clinical Presentation at Evaluation Evolving Impairments Impairments Activity Tolerance,Balance, Functional Activities, Functional Mobility,Gait,Pain, Posture,ROM,Soft Tissue Mobility,Strength Other Concerns Barriers to Rehabilitation limited in insurance visits/yr and also needs OT for hand issue Goals activity Short Term Goal (STG) Pt will be able to squat w/o inc pain STG Duration 09/23/24 Penitentiary Goal (LTG) Pt will be able to lift child and return to working out w/o pain more than 1/1o LTG Duration 10/23/24 posture Short Term Goal (STG) Pt will score at least 2/5 to show improved postural alignment STG Duration 09/23/24 Penitentiary Goal (LTG) Pt will score at least 4/5 to show improved postural alignment LTG Duration 10/23/24 strength Short Term Goal (STG) Pt will be indep w/HEP STG Duration 09/23 Receiver Goal (LTG) Pt will score at least 3/5 on EFT and LPM in all planes and at least 4+/5 on all LE MMT B to show improved stability to allow greater ease w/activity. LTG Duration 10/23/24 Physical Therapy Plan Frequency and Duration Frequency of Treatment 2x/Week Duration of treatment (weeks) 10 Plan of Care Start Date 08/12/24 Plan of Care End Date 10/23/24 Therapeutic Interventions Therapeutic Interventions Balance Training,Gait Training ,Home Exercise Program,Joint Mobilizations,Manual Therapy, Neuromuscular Re-education, Orthotic/Prosthetic Management ,Patient/Caregiver Education, Self-Care/Home Management,Soft Tissue Mobilization,Taping, Therapeutic Activities, Therapeutic Exercises Modalities Cold Pack/Ice Massage,Electric Stimulation,Hot Packs, Infrared Therapy,Ultrasound Next Visit Focus/Plan Next Note Type Treatment Note Next Visit Plan innominate and hip mobs, coccyx and sacral mobs, STM to back and hips HEP: open book, cat/cow, quadruped strengthening, and supine core strength, paloff press
--- NOTE | 2024-08-12 16:23 | PT.OPPOC ---
Physical, Occupational & Speech Therapy At [facility] Current Diagnoses Other intervertebral disc degeneration, lumbar region with discogenic back pain only (08/12/24) Visit Care Team Role Provider Type REYNALDO Brown Attending Provider Non-Staff Family Provider Primary Care Provider Referring Provider Specialty: Medical Address: [address] [place] [address], [place], [address] Email: Plan Of Care PT-OP-B Current Condition Start: 08/08/24 14:04 Freq: Status: Active Protocol: Document 08/12/24 09:49 [facility] (Rec: 08/12/24 10:48 [facility] [id number]) Current Condition History of Current Condition Onset Date Apr 2024 Current Complaints LBP History of Current Condition Was moving a mattress w/a friend and she tripped over the curb and fell back onto her back onto the pavement. 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 Remembers falling and bouncing almost straight up and felt back pain immediately. She has a Cervical issue in the past too. Later had issues at work feeling sick and having a protruded area at sternum. Did CT scan and found a bulge in disc. mom did have back issue also. Prior to this, didn't have back pain. Saw PT about 6 yeras ago for neck and has had injections that helped. DId get a gym membership and has been taking things pretty easy and just walking. She has had a knee and neck issues in the past that stopped her from running. TYpically likes to cycle, lift, and do stair stepper. Occ takes 800mg of ibupofen when it gets really bad. Denies symptoms down legs . Has torn meniscus on L knee when tries to walk and attempts to run, it flares up. Has been told she has a minor scoliosis Prior Treatments and Tests CT of abdomen: Bones: No aggressive osseous abnormality . L5-S1 disc bulge without significant spinal canal narrowing. IMPRESSION: Mild hepatomegaly; the left hepatic lobe extends below the xiphoid process. The uterus is enlarged, with heterogeneous enhancement. Findings may indicate diffuse adenomyosis. Treatment Goals Patient/Caregiver Goals Get back to working out, return to running, be able to squat and lift child and at work PT-OP-T Assessment and Plan Start: 08/08/24 14:04 Freq: Status: Active Protocol: Document 08/12/24 09:49 [facility] (Rec: 08/12/24 10:48 [facility] [id number]) Physical Therapy Assessment Rehab Potential Rehabilitation Potential Good Evaluation Complexity Number of Personal Factors/Comorbidities 1-2 Number of Body Systems Impaired 4 or More Clinical Presentation at Evaluation Evolving Impairments Impairments Activity Tolerance,Balance, Functional Activities, Functional Mobility,Gait,Pain, Posture,ROM,Soft Tissue Mobility,Strength Other Concerns Barriers to Rehabilitation limited in insurance visits/yr and also needs OT for hand issue Goals activity Short Term Goal (STG) Pt will be able to squat w/o inc pain STG Duration 09/23/24 Internal Communications Intern Goal (LTG) Pt will be able to lift child and return to working out w/o pain more than 1/1o LTG Duration 10/23/24 posture Short Term Goal (STG) Pt will score at least 2/5 to show improved postural alignment STG Duration 09/23/24 Internal Communications Intern Goal (LTG) Pt will score at least 4/5 to show improved postural alignment LTG Duration 10/23/24 strength Short Term Goal (STG) Pt will be indep w/HEP STG Duration 09/23 Internal Communications Intern Goal (LTG) Pt will score at least 3/5 on EFT and LPM in all planes and at least 4+/5 on all LE MMT B to show improved stability to allow greater ease w/activity. LTG Duration 10/23/24 Physical Therapy Plan Frequency and Duration Frequency of Treatment 2x/Week Duration of treatment (weeks) 10 Plan of Care Start Date 08/12/24 Plan of Care End Date 10/23/24 Therapeutic Interventions Therapeutic Interventions Balance Training,Gait Training ,Home Exercise Program,Joint Mobilizations,Manual Therapy, Neuromuscular Re-education, Orthotic/Prosthetic Management ,Patient/Caregiver Education, Self-Care/Home Management,Soft Tissue Mobilization,Taping, Therapeutic Activities, Therapeutic Exercises Modalities Cold Pack/Ice Massage,Electric Stimulation,Hot Packs, Infrared Therapy,Ultrasound Next Visit Focus/Plan Next Note Type Treatment Note Next Visit Plan innominate and hip mobs, coccyx and sacral mobs, STM to back and hips HEP: open book, cat/cow, quadruped strengthening, and supine core strength, paloff press Plan of Care Dates Plan of Care Start Date 08/12/24 Plan of Care End Date 10/23/24 Electronically Signed by: Marissa Elise, PT 08/14/24 [id number] If you are in agreement with this Plan of Care, please return a signed and dated copy. I have reviewed this Plan of Care and certify that the skilled therapy services above are required to meet the patient?s needs. Physician Signature Date Printed Name and Credentials Clinical Instructor Signature Printed Name and Credentials
--- NOTE | 2024-08-15 10:05 | PT-OP ANOTE ---
Pt called re: no show and voice message left re: no show policy and if she no shows again that we do have to DC the case. 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
--- NOTE | 2024-08-16 10:55 | PT.OTN ---
Current Diagnoses Other intervertebral disc degeneration, lumbar region with discogenic back pain only (08/16/24) Physical Therapy Treatment Note PT-OP-A Visit Information Start: 08/08/24 14:04 Freq: Status: Active Protocol: Document 08/16/24 08:56 AB (Rec: 08/16/24 10:34 AB [id number]) Out-Patient Physical Therapy Visit Information Visit Information Visit Type Treatment Note Visit Start Time 09:51 Visit Stop Time 10:32 Visit Number 11/18 Number of ENERGY BROKER Visits 1 PT-OP-B Current Condition Start: 08/08/24 14:04 Freq: Status: Active Protocol: Document 08/12/24 09:49 [facility] (Rec: 08/12/24 10:48 [facility] [id number]) Current Condition History of Current Condition Onset Date Apr 2024 Current Complaints LBP History of Current Condition Was moving a mattress w/a friend and she tripped over the curb and fell back onto her back onto the pavement. 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 Remembers falling and bouncing almost straight up and felt back pain immediately. She has a Cervical issue in the past too. Later had issues at work feeling sick and having a protruded area at sternum. Did CT scan and found a bulge in disc. mom did have back issue also. Prior to this, didn't have back pain. Saw PT about 6 yeras ago for neck and has had injections that helped. DId get a gym membership and has been taking things pretty easy and just walking. She has had a knee and neck issues in the past that stopped her from running. TYpically likes to cycle, lift, and do stair stepper. Occ takes 800mg of ibupofen when it gets really bad. Denies symptoms down legs . Has torn meniscus on L knee when tries to walk and attempts to run, it flares up. Has been told she has a minor scoliosis Prior Treatments and Tests CT of abdomen: Bones: No aggressive osseous abnormality . L5-S1 disc bulge without significant spinal canal narrowing. IMPRESSION: Mild hepatomegaly; the left hepatic lobe extends below the xiphoid process. The uterus is enlarged, with heterogeneous enhancement. Findings may indicate diffuse adenomyosis. Treatment Goals Patient/Caregiver Goals Get back to working out, return to running, be able to squat and lift child and at work PT-OP-C Subjective Start: 08/08/24 14:04 Freq: Status: Active Protocol: Document 08/16/24 08:56 AB (Rec: 08/16/24 10:34 AB [id number]) OP-PT Subjective Patient Comments Patient Comments Patient rates pain 3-4/10 SI area start of session. PT-OP-D Balance Start: 08/08/24 14:04 Freq: Status: Active Protocol: Document 08/12/24 09:49 [facility] (Rec: 08/12/24 10:48 [facility] [id number]) Balance Tests Single Limb Standing Single Limb- Right >30 sec but pain in back Single Limb- Left >30 but pain in back PT-OP-F Manual Assessment Start: 08/08/24 14:04 Freq: Status: Active Protocol: Document 08/12/24 09:49 [facility] (Rec: 08/12/24 10:48 [facility] [id number]) Manual Assessments Soft Tissue Assessment Soft Tissue Mobility Assessment inc tension R QL, and lat abdomen R PT-OP-G Mobility & Gait Start: 08/08/24 14:04 Freq: Status: Active Protocol: Document 08/12/24 09:49 [facility] (Rec: 08/12/24 10:48 [facility] [id number]) OP Gait Assessment Comments Gait Comments dec stance time on RLE and dec trunk motion PT-OP-J Posture/Palpation/Skin Start: 08/08/24 14:04 Freq: Status: Active Protocol: Document 08/12/24 09:49 [facility] (Rec: 08/12/24 10:48 [facility] [id number]) Posture Evaluation [facility] Postural Classification System [facility] Postural Classifications Posterior/Anterior Vertical Compression Test 1 Elbow Flexion Test 0 Lumbar Protective Mechanism Left AP 0 Lumbar Protective Mechanism Right AP 0 Lumbar Protective Mechanism Left PA 0 Lumbar Protective Mechanism Right PA 0 Comments Posture Comments inversion of L foot, B genu recurvatum, R pelvic shear, L scap higher, L trunk rot, R scap more ant tipped and abd, inc kyphosis, equal greater trochanter and R iliac crest higher PT-OP-K Range of Motion Start: 08/08/24 14:04 Freq: Status: Active Protocol: Document 08/12/24 09:49 [facility] (Rec: 08/12/24 10:48 [facility] [id number]) Lumbar Spine Range of Motion Lumbar Spine Active Percentage Flexion 30 Extension 25 Rotation Left 60 Rotation Right 50 Lateral Flexion Left 75 Lateral Flexion Right 75 Comments feels pain on R w/B SB; big stretch to back w/rot PT-OP-L Special Tests Start: 08/08/24 14:04 Freq: Status: Active Protocol: Document 08/12/24 09:49 [facility] (Rec: 08/12/24 10:48 [facility] [id number]) Special Tests Lumbar Spine Special Tests Straight Leg Raise Comments B positive Chester Test Results R positive hip flexor march Test Results L positive Slump Test Results positive B Other Special Tests Special Tests BP 116/64 PT-OP-M Strength Start: 08/08/24 14:04 Freq: Status: Active Protocol: Document 08/12/24 09:49 [facility] (Rec: 08/12/24 10:48 [facility] [id number]) Hip Strength Hip Manual Muscle Testing Right Flexion (L2) 3 Fair Extension (S1) 3 Fair Abduction 3+ Fair+ Adduction 3+ Fair+ External Rotation 4- Good- Internal Rotation 4- Good- Left Flexion (L2) 3+ Fair+ Extension (S1) 3 Fair Abduction 3+ Fair+ Adduction 3+ Fair+ External Rotation 3+ Fair+ Internal Rotation 3+ Fair+ Comments pain in back B hip ext Knee Strength Knee Manual Muscle Testing R Flexion (S2) 4- Good- Extension (L3) 4- Good- L Flexion (S2) 4- Good- Extension (L3) 4 Good Ankle/Foot Strength Ankle and Foot Manual Muscle Testing B Dorsiflexion (L4) 5 Normal Plantarflexion (S1) 5 Normal Comments Pf tested seated PT-OP-Q Treatments Start: 08/08/24 14:04 Freq: Status: Active Protocol: Document 08/16/24 08:56 AB (Rec: 08/16/24 10:34 AB [id number]) Therapeutic Exercises Supine Exercises piriformis Side bilateral Reps/Minutes 60 sec X1 each LE Modified Chester stretch Side bilateral Reps/Minutes 60 sec each LE X1 Standing Exercises Pallof press Side bilateral Resistance level one band Reps/Minutes 15 X2 Comments Verbal cues Manual Therapy Treatment Consent Patient gave verbal consent for manual Yes treatment Soft Tissue Mobilization LS paraspinals Body Location bilateral Mobilization Type Sustained Pressure Intensity/Depth Moderate Body Position Sidelying bilateral hips Body Location hip flexor and glute/ piriformis Mobilization Type Cross-Friction,Rolling, Sustained Pressure Body Position Hooklying Comments and sidelying Manual Techniques MET for right AI left PI and pubic shotgun Reps/Duration 6 x 6 seconds PT-OP-T Assessment and Plan Start: 08/08/24 14:04 Freq: Status: Active Protocol: Document 08/16/24 08:56 AB (Rec: 08/16/24 10:34 AB [id number]) Physical Therapy Assessment Goals activity Short Term Goal (STG) Pt will be able to squat w/o inc pain STG Duration 09/23/24 Electric Welder Goal (LTG) Pt will be able to lift child and return to working out w/o pain more than 1/1o LTG Duration 10/23/24 posture Short Term Goal (STG) Pt will score at least 2/5 to show improved postural alignment STG Duration 09/23/24 Senior Living Goal (LTG) Pt will score at least 4/5 to show improved postural alignment LTG Duration 10/23/24 strength Short Term Goal (STG) Pt will be indep w/HEP STG Duration 09/23 Senior Living Goal (LTG) Pt will score at least 3/5 on EFT and LPM in all planes and at least 4+/5 on all LE MMT B to show improved stability to allow greater ease w/activity. LTG Duration 10/23/24 Assessment Summary Assessment Patient rates pain 3/10 SI area end of session. Physical Therapy Plan Frequency and Duration Frequency of Treatment 2x/Week Duration of treatment (weeks) 10 Plan of Care Start Date 08/12/24 Plan of Care End Date 10/23/24 Next Visit Focus/Plan Next Note Type Treatment Note Next Visit Plan innominate and hip mobs, coccyx and sacral mobs, STM to back and hips HEP: open book, cat/cow, quadruped strengthening, and supine core strength, paloff press
--- NOTE | 2024-08-19 12:01 | PT.OTN ---
Current Diagnoses Other intervertebral disc degeneration, lumbar region with discogenic back pain only (08/19/24) Physical Therapy Treatment Note PT-OP-A Visit Information Start: 08/08/24 14:04 Freq: Status: Active Protocol: Document 08/19/24 08:09 AB (Rec: 08/19/24 12:00 AB [id number]) Out-Patient Physical Therapy Visit Information Visit Information Visit Type Treatment Note Visit Note Access Code [email or web address] Visit Start Time 09:49 Visit Stop Time 10:37 Visit Number 12/16 Number of EMPLOYMENT COUNSELOR Visits 2 PT-OP-B Current Condition Start: 08/08/24 14:04 Freq: Status: Active Protocol: Document 08/12/24 09:49 [facility] (Rec: 08/12/24 10:48 [facility] [id number]) Current Condition History of Current Condition Onset Date Apr 2024 Current Complaints LBP History of Current Condition Was moving a mattress w/a friend and she tripped over the curb and fell back onto her back onto the pavement. 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 Remembers falling and bouncing almost straight up and felt back pain immediately. She has a Cervical issue in the past too. Later had issues at work feeling sick and having a protruded area at sternum. Did CT scan and found a bulge in disc. mom did have back issue also. Prior to this, didn't have back pain. Saw PT about 6 yeras ago for neck and has had injections that helped. DId get a gym membership and has been taking things pretty easy and just walking. She has had a knee and neck issues in the past that stopped her from running. TYpically likes to cycle, lift, and do stair stepper. Occ takes 800mg of ibupofen when it gets really bad. Denies symptoms down legs . Has torn meniscus on L knee when tries to walk and attempts to run, it flares up. Has been told she has a minor scoliosis Prior Treatments and Tests CT of abdomen: Bones: No aggressive osseous abnormality . L5-S1 disc bulge without significant spinal canal narrowing. IMPRESSION: Mild hepatomegaly; the left hepatic lobe extends below the xiphoid process. The uterus is enlarged, with heterogeneous enhancement. Findings may indicate diffuse adenomyosis. Treatment Goals Patient/Caregiver Goals Get back to working out, return to running, be able to squat and lift child and at work PT-OP-C Subjective Start: 08/08/24 14:04 Freq: Status: Active Protocol: Document 08/19/24 08:09 AB (Rec: 08/19/24 12:00 AB [id number]) OP-PT Subjective Patient Comments Patient Comments Patient reports she is the same. PT-OP-D Balance Start: 08/08/24 14:04 Freq: Status: Active Protocol: Document 08/12/24 09:49 [facility] (Rec: 08/12/24 10:48 [facility] [id number]) Balance Tests Single Limb Standing Single Limb- Right >30 sec but pain in back Single Limb- Left >30 but pain in back PT-OP-F Manual Assessment Start: 08/08/24 14:04 Freq: Status: Active Protocol: Document 08/12/24 09:49 [facility] (Rec: 08/12/24 10:48 [facility] [id number]) Manual Assessments Soft Tissue Assessment Soft Tissue Mobility Assessment inc tension R QL, and lat abdomen R PT-OP-G Mobility & Gait Start: 08/08/24 14:04 Freq: Status: Active Protocol: Document 08/12/24 09:49 [facility] (Rec: 08/12/24 10:48 [facility] [id number]) OP Gait Assessment Comments Gait Comments dec stance time on RLE and dec trunk motion PT-OP-J Posture/Palpation/Skin Start: 08/08/24 14:04 Freq: Status: Active Protocol: Document 08/12/24 09:49 [facility] (Rec: 08/12/24 10:48 [facility] [id number]) Posture Evaluation [facility] Postural Classification System [facility] Postural Classifications Posterior/Anterior Vertical Compression Test 1 Elbow Flexion Test 0 Lumbar Protective Mechanism Left AP 0 Lumbar Protective Mechanism Right AP 0 Lumbar Protective Mechanism Left PA 0 Lumbar Protective Mechanism Right PA 0 Comments Posture Comments inversion of L foot, B genu recurvatum, R pelvic shear, L scap higher, L trunk rot, R scap more ant tipped and abd, inc kyphosis, equal greater trochanter and R iliac crest higher PT-OP-K Range of Motion Start: 08/08/24 14:04 Freq: Status: Active Protocol: Document 08/12/24 09:49 [facility] (Rec: 08/12/24 10:48 [facility] [id number]) Lumbar Spine Range of Motion Lumbar Spine Active Percentage Flexion 30 Extension 25 Rotation Left 60 Rotation Right 50 Lateral Flexion Left 75 Lateral Flexion Right 75 Comments feels pain on R w/B SB; big stretch to back w/rot PT-OP-L Special Tests Start: 08/08/24 14:04 Freq: Status: Active Protocol: Document 08/12/24 09:49 [facility] (Rec: 08/12/24 10:48 [facility] [id number]) Special Tests Lumbar Spine Special Tests Straight Leg Raise Comments B positive Chester Test Results R positive hip flexor march Test Results L positive Slump Test Results positive B Other Special Tests Special Tests BP 116/64 PT-OP-M Strength Start: 08/08/24 14:04 Freq: Status: Active Protocol: Document 08/12/24 09:49 [facility] (Rec: 08/12/24 10:48 [facility] [id number]) Hip Strength Hip Manual Muscle Testing Right Flexion (L2) 3 Fair Extension (S1) 3 Fair Abduction 3+ Fair+ Adduction 3+ Fair+ External Rotation 4- Good- Internal Rotation 4- Good- Left Flexion (L2) 3+ Fair+ Extension (S1) 3 Fair Abduction 3+ Fair+ Adduction 3+ Fair+ External Rotation 3+ Fair+ Internal Rotation 3+ Fair+ Comments pain in back B hip ext Knee Strength Knee Manual Muscle Testing R Flexion (S2) 4- Good- Extension (L3) 4- Good- L Flexion (S2) 4- Good- Extension (L3) 4 Good Ankle/Foot Strength Ankle and Foot Manual Muscle Testing B Dorsiflexion (L4) 5 Normal Plantarflexion (S1) 5 Normal Comments Pf tested seated PT-OP-Q Treatments Start: 08/08/24 14:04 Freq: Status: Active Protocol: Document 08/19/24 08:09 AB (Rec: 08/19/24 12:00 AB [id number]) Therapeutic Exercises Supine Exercises pelvic realignment exercises Supine Exercise Name 1. ball squeeze2.one leg pelvic lfit3. one leg press and hold Side bilateral Equipment Used HEP Reps/Minutes 3 sec X 5 each abdominal bracing with Le extension Supine Exercise Name HEP Side bilateral Reps/Minutes X10 Comments Verbal cues Figure 4 Supine Exercise Name HEP Side bilateral Reps/Minutes 60 sec each LE piriformis Supine Exercise Name HEP Side bilateral Reps/Minutes 60 sec X1 each LE Modified Chester stretch Supine Exercise Name HEP Side bilateral Reps/Minutes 60 sec each LE X1 Manual Therapy Treatment Consent Patient gave verbal consent for manual Yes treatment Soft Tissue Mobilization LS paraspinals Body Location bilateral Mobilization Type Sustained Pressure Intensity/Depth Moderate Body Position Sidelying bilateral hips Body Location hip flexor and glute/ piriformis Mobilization Type Cross-Friction,Rolling, Sustained Pressure Body Position Hooklying Comments and sidelying PT-OP-T Assessment and Plan Start: 08/08/24 14:04 Freq: Status: Active Protocol: Document 08/19/24 08:09 AB (Rec: 08/19/24 12:00 AB [id number]) Physical Therapy Assessment Goals activity Short Term Goal (STG) Pt will be able to squat w/o inc pain STG Duration 09/23/24 Longterm Goal (LTG) Pt will be able to lift child and return to working out w/o pain more than 1/1o LTG Duration 10/23/24 posture Short Term Goal (STG) Pt will score at least 2/5 to show improved postural alignment STG Duration 09/23/24 Longterm Goal (LTG) Pt will score at least 4/5 to show improved postural alignment LTG Duration 10/23/24 strength Short Term Goal (STG) Pt will be indep w/HEP STG Duration 09/23 Accounting Machine Operator Goal (LTG) Pt will score at least 3/5 on EFT and LPM in all planes and at least 4+/5 on all LE MMT B to show improved stability to allow greater ease w/activity. LTG Duration 10/23/24 Assessment Summary Assessment Patient rates SI pain /, but comments neck and upper back now feel stiff. Physical Therapy Plan Frequency and Duration Frequency of Treatment 2x/Week Duration of treatment (weeks) 10 Plan of Care Start Date 08/12/24 Plan of Care End Date 10/23/24 Next Visit Focus/Plan Next Note Type Treatment Note Next Visit Plan innominate and hip mobs, coccyx and sacral mobs, STM to back and hips HEP: open book, cat/cow, quadruped strengthening, and supine core strength
--- NOTE | 2024-08-27 14:27 | PT.OTN ---
Current Diagnoses Other intervertebral disc degeneration, lumbar region with discogenic back pain only (08/27/24) Physical Therapy Treatment Note PT-OP-A Visit Information Start: 08/08/24 14:04 Freq: Status: Active Protocol: Document 08/27/24 09:48 [facility] (Rec: 08/27/24 14:27 [facility] [id number]) Out-Patient Physical Therapy Visit Information Visit Information Visit Type Treatment Note Visit Note Access Code [id number] Visit Start Time 09:51 Visit Stop Time 10:31 Visit Number 01/16 Number of FURNACE CHARGER Visits 0 PT-OP-B Current Condition Start: 08/08/24 14:04 Freq: Status: Active Protocol: Document 08/12/24 09:49 [facility] (Rec: 08/12/24 10:48 [facility] [id number]) Current Condition History of Current Condition Onset Date Apr 2024 Current Complaints LBP History of Current Condition Was moving a mattress w/a friend and she tripped over the curb and fell back onto her back onto the pavement. 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 Remembers falling and bouncing almost straight up and felt back pain immediately. She has a Cervical issue in the past too. Later had issues at work feeling sick and having a protruded area at sternum. Did CT scan and found a bulge in disc. mom did have back issue also. Prior to this, didn't have back pain. Saw PT about 6 yeras ago for neck and has had injections that helped. DId get a gym membership and has been taking things pretty easy and just walking. She has had a knee and neck issues in the past that stopped her from running. TYpically likes to cycle, lift, and do stair stepper. Occ takes 800mg of ibupofen when it gets really bad. Denies symptoms down legs . Has torn meniscus on L knee when tries to walk and attempts to run, it flares up. Has been told she has a minor scoliosis Prior Treatments and Tests CT of abdomen: Bones: No aggressive osseous abnormality . L5-S1 disc bulge without significant spinal canal narrowing. IMPRESSION: Mild hepatomegaly; the left hepatic lobe extends below the xiphoid process. The uterus is enlarged, with heterogeneous enhancement. Findings may indicate diffuse adenomyosis. Treatment Goals Patient/Caregiver Goals Get back to working out, return to running, be able to squat and lift child and at work PT-OP-C Subjective Start: 08/08/24 14:04 Freq: Status: Active Protocol: Document 08/27/24 09:48 [facility] (Rec: 08/27/24 14:27 [facility] [id number]) OP-PT Subjective Patient Comments Patient Comments Pt reports back is hurting a little more. She thinks w/ thanksgiving and standing a lot. Has had to do the stairs d/t living on 4th floor and elevator is out. Has had to carry stuff up a lot. neck is hurting. PT-OP-D Balance Start: 08/08/24 14:04 Freq: Status: Active Protocol: Document 08/12/24 09:49 [facility] (Rec: 08/12/24 10:48 [facility] [id number]) Balance Tests Single Limb Standing Single Limb- Right >30 sec but pain in back Single Limb- Left >30 but pain in back PT-OP-F Manual Assessment Start: 08/08/24 14:04 Freq: Status: Active Protocol: Document 08/12/24 09:49 [facility] (Rec: 08/12/24 10:48 [facility] [id number]) Manual Assessments Soft Tissue Assessment Soft Tissue Mobility Assessment inc tension R QL, and lat abdomen R PT-OP-G Mobility & Gait Start: 08/08/24 14:04 Freq: Status: Active Protocol: Document 08/12/24 09:49 [facility] (Rec: 08/12/24 10:48 [facility] [id number]) OP Gait Assessment Comments Gait Comments dec stance time on RLE and dec trunk motion PT-OP-J Posture/Palpation/Skin Start: 08/08/24 14:04 Freq: Status: Active Protocol: Document 08/12/24 09:49 [facility] (Rec: 08/12/24 10:48 [facility] [id number]) Posture Evaluation Mauri Postural Classification System Mauri Postural Classifications Posterior/Anterior Vertical Compression Test 1 Elbow Flexion Test 0 Lumbar Protective Mechanism Left AP 0 Lumbar Protective Mechanism Right AP 0 Lumbar Protective Mechanism Left PA 0 Lumbar Protective Mechanism Right PA 0 Comments Posture Comments inversion of L foot, B genu recurvatum, R pelvic shear, L scap higher, L trunk rot, R scap more ant tipped and abd, inc kyphosis, equal greater trochanter and R iliac crest higher PT-OP-K Range of Motion Start: 08/08/24 14:04 Freq: Status: Active Protocol: Document 08/12/24 09:49 [facility] (Rec: 08/12/24 10:48 [facility] [id number]) Lumbar Spine Range of Motion Lumbar Spine Active Percentage Flexion 30 Extension 25 Rotation Left 60 Rotation Right 50 Lateral Flexion Left 75 Lateral Flexion Right 75 Comments feels pain on R w/B SB; big stretch to back w/rot PT-OP-L Special Tests Start: 08/08/24 14:04 Freq: Status: Active Protocol: Document 08/12/24 09:49 [facility] (Rec: 08/12/24 10:48 [facility] [id number]) Special Tests Lumbar Spine Special Tests Straight Leg Raise Comments B positive Chester Test Results R positive hip flexor march Test Results L positive Slump Test Results positive B Other Special Tests Special Tests BP 116/64 PT-OP-M Strength Start: 08/08/24 14:04 Freq: Status: Active Protocol: Document 08/12/24 09:49 [facility] (Rec: 08/12/24 10:48 [facility] [id number]) Hip Strength Hip Manual Muscle Testing Right Flexion (L2) 3 Fair Extension (S1) 3 Fair Abduction 3+ Fair+ Adduction 3+ Fair+ External Rotation 4- Good- Internal Rotation 4- Good- Left Flexion (L2) 3+ Fair+ Extension (S1) 3 Fair Abduction 3+ Fair+ Adduction 3+ Fair+ External Rotation 3+ Fair+ Internal Rotation 3+ Fair+ Comments pain in back B hip ext Knee Strength Knee Manual Muscle Testing R Flexion (S2) 4- Good- Extension (L3) 4- Good- L Flexion (S2) 4- Good- Extension (L3) 4 Good Ankle/Foot Strength Ankle and Foot Manual Muscle Testing B Dorsiflexion (L4) 5 Normal Plantarflexion (S1) 5 Normal Comments Pf tested seated PT-OP-Q Treatments Start: 08/08/24 14:04 Freq: Status: Active Protocol: Document 08/27/24 09:48 [facility] (Rec: 08/27/24 14:27 [facility] [id number]) Therapeutic Exercises Supine Exercises back stretch Supine Exercise Name leg across body twist Side bilateral Reps/Minutes 30 sec abdominal bracing with Le extension Supine Exercise Name HEP Side bilateral Reps/Minutes X10 Comments Verbal cues Figure 4 Supine Exercise Name HEP review- w/opp knee to chest Side bilateral Reps/Minutes 30 sec each LE piriformis Supine Exercise Name HEP review knee to opp chest Side bilateral Reps/Minutes 20 sec X1 each LE Modified [place] stretch Supine Exercise Name HEP Side bilateral Reps/Minutes 30 sec each LE X1 Comments knee to opp chest to avoid back pain Standing Exercises sidesteps Standing Exercise Name HEP Side bilateral Equipment Used nav[place] latex free at knees Reps/Minutes 20ft ea Comments in mini squat Pallof press Standing Exercise Name HEP Side bilateral Resistance latex free orange 2 bands Reps/Minutes 15 Comments Verbal cues to avoid rot Manual Therapy Treatment Consent Patient gave verbal consent for manual Yes treatment Joint Mobilizations innominate Comments caudal L, R IR, L ER prone c/ r hip Comments on axis L ER and R IR c/r prone sacrum Comments PA L and UPA L c/r w/LTR PT-OP-T Assessment and Plan Start: 08/08/24 14:04 Freq: Status: Active Protocol: Document 08/27/24 09:48 [facility] (Rec: 08/27/24 14:27 [facility] [id number]) Physical Therapy Assessment Goals activity Short Term Goal (STG) Pt will be able to squat w/o inc pain STG Duration 09/23/24 [facility] Goal (LTG) Pt will be able to lift child and return to working out w/o pain more than 1/1o LTG Duration 10/23/24 posture Short Term Goal (STG) Pt will score at least 2/5 to show improved postural alignment STG Duration 09/23/24 Comb Fixer Goal (LTG) Pt will score at least 4/5 to show improved postural alignment LTG Duration 10/23/24 strength Short Term Goal (STG) Pt will be indep w/HEP STG Duration 09/23 Comb Fixer Goal (LTG) Pt will score at least 3/5 on EFT and LPM in all planes and at least 4+/5 on all LE MMT B to show improved stability to allow greater ease w/activity. LTG Duration 10/23/24 Assessment Summary Assessment pt had improved pelvis alignment and wt shift after manual treatment. cues needed and handout given again to pt for exercises Physical Therapy Plan Frequency and Duration Frequency of Treatment 2x/Week Duration of treatment (weeks) 10 Plan of Care Start Date 08/12/24 Plan of Care End Date 10/23/24 Next Visit Focus/Plan Next Note Type Treatment Note Next Visit Plan coccyx mobs, innominate and lumbar mobility as needed HEP: review current exercises and try quadruped strength
--- NOTE | 2024-08-29 10:49 | PT.OTN ---
Current Diagnoses Other intervertebral disc degeneration, lumbar region with discogenic back pain only (08/29/24) Physical Therapy Treatment Note PT-OP-A Visit Information Start: 08/08/24 14:04 Freq: Status: Active Protocol: Document 08/29/24 09:51 [facility] (Rec: 08/29/24 10:49 [facility] [id number]) Out-Patient Physical Therapy Visit Information Visit Information Visit Type Treatment Note Visit Note Access Code [id number] Visit Start Time 09:52 Visit Stop Time 10:32 Visit Number 02/15 Number of OTR VAN CDL TRUCK DRIVER Visits 0 PT-OP-B Current Condition Start: 08/08/24 14:04 Freq: Status: Active Protocol: Document 08/12/24 09:49 [facility] (Rec: 08/12/24 10:48 [facility] [id number]) Current Condition History of Current Condition Onset Date Apr 2024 Current Complaints LBP History of Current Condition Was moving a mattress w/a friend and she tripped over the curb and fell back onto her back onto the pavement. 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 Remembers falling and bouncing almost straight up and felt back pain immediately. She has a Cervical issue in the past too. Later had issues at work feeling sick and having a protruded area at sternum. Did CT scan and found a bulge in disc. mom did have back issue also. Prior to this, didn't have back pain. Saw PT about 6 yeras ago for neck and has had injections that helped. DId get a gym membership and has been taking things pretty easy and just walking. She has had a knee and neck issues in the past that stopped her from running. TYpically likes to cycle, lift, and do stair stepper. Occ takes 800mg of ibupofen when it gets really bad. Denies symptoms down legs . Has torn meniscus on L knee when tries to walk and attempts to run, it flares up. Has been told she has a minor scoliosis Prior Treatments and Tests CT of abdomen: Bones: No aggressive osseous abnormality . L5-S1 disc bulge without significant spinal canal narrowing. IMPRESSION: Mild hepatomegaly; the left hepatic lobe extends below the xiphoid process. The uterus is enlarged, with heterogeneous enhancement. Findings may indicate diffuse adenomyosis. Treatment Goals Patient/Caregiver Goals Get back to working out, return to running, be able to squat and lift child and at work PT-OP-C Subjective Start: 08/08/24 14:04 Freq: Status: Active Protocol: Document 08/29/24 09:51 [facility] (Rec: 08/29/24 10:49 [facility] [id number]) OP-PT Subjective Patient Comments Patient Comments Hx of minor fx to sacrum in 2019 when slipped on yacht and felt. Was soon after that. PT-OP-D Balance Start: 08/08/24 14:04 Freq: Status: Active Protocol: Document 08/12/24 09:49 [facility] (Rec: 08/12/24 10:48 [facility] [id number]) Balance Tests Single Limb Standing Single Limb- Right >30 sec but pain in back Single Limb- Left >30 but pain in back PT-OP-F Manual Assessment Start: 08/08/24 14:04 Freq: Status: Active Protocol: Document 08/12/24 09:49 [facility] (Rec: 08/12/24 10:48 [facility] [id number]) Manual Assessments Soft Tissue Assessment Soft Tissue Mobility Assessment inc tension R QL, and lat abdomen R PT-OP-G Mobility & Gait Start: 08/08/24 14:04 Freq: Status: Active Protocol: Document 08/12/24 09:49 [facility] (Rec: 08/12/24 10:48 [facility] [id number]) OP Gait Assessment Comments Gait Comments dec stance time on RLE and dec trunk motion PT-OP-J Posture/Palpation/Skin Start: 08/08/24 14:04 Freq: Status: Active Protocol: Document 08/12/24 09:49 [facility] (Rec: 08/12/24 10:48 [facility] [id number]) Posture Evaluation Mauri Postural Classification System Mauri Postural Classifications Posterior/Anterior Vertical Compression Test 1 Elbow Flexion Test 0 Lumbar Protective Mechanism Left AP 0 Lumbar Protective Mechanism Right AP 0 Lumbar Protective Mechanism Left PA 0 Lumbar Protective Mechanism Right PA 0 Comments Posture Comments inversion of L foot, B genu recurvatum, R pelvic shear, L scap higher, L trunk rot, R scap more ant tipped and abd, inc kyphosis, equal greater trochanter and R iliac crest higher PT-OP-K Range of Motion Start: 08/08/24 14:04 Freq: Status: Active Protocol: Document 08/12/24 09:49 [facility] (Rec: 08/12/24 10:48 [facility] [id number]) Lumbar Spine Range of Motion Lumbar Spine Active Percentage Flexion 30 Extension 25 Rotation Left 60 Rotation Right 50 Lateral Flexion Left 75 Lateral Flexion Right 75 Comments feels pain on R w/B SB; big stretch to back w/rot PT-OP-L Special Tests Start: 08/08/24 14:04 Freq: Status: Active Protocol: Document 08/12/24 09:49 [facility] (Rec: 08/12/24 10:48 [facility] [id number]) Special Tests Lumbar Spine Special Tests Straight Leg Raise Comments B positive Chester Test Results R positive hip flexor march Test Results L positive Slump Test Results positive B Other Special Tests Special Tests BP 116/64 PT-OP-M Strength Start: 08/08/24 14:04 Freq: Status: Active Protocol: Document 08/12/24 09:49 [facility] (Rec: 08/12/24 10:48 [facility] [id number]) Hip Strength Hip Manual Muscle Testing Right Flexion (L2) 3 Fair Extension (S1) 3 Fair Abduction 3+ Fair+ Adduction 3+ Fair+ External Rotation 4- Good- Internal Rotation 4- Good- Left Flexion (L2) 3+ Fair+ Extension (S1) 3 Fair Abduction 3+ Fair+ Adduction 3+ Fair+ External Rotation 3+ Fair+ Internal Rotation 3+ Fair+ Comments pain in back B hip ext Knee Strength Knee Manual Muscle Testing R Flexion (S2) 4- Good- Extension (L3) 4- Good- L Flexion (S2) 4- Good- Extension (L3) 4 Good Ankle/Foot Strength Ankle and Foot Manual Muscle Testing B Dorsiflexion (L4) 5 Normal Plantarflexion (S1) 5 Normal Comments Pf tested seated PT-OP-Q Treatments Start: 08/08/24 14:04 Freq: Status: Active Protocol: Document 08/29/24 09:51 [facility] (Rec: 08/29/24 10:49 [facility] [id number]) Therapeutic Exercises Supine Exercises abdominal bracing with Le extension Supine Exercise Name HEP review Side bilateral Reps/Minutes X10 Comments Verbal cues Figure 4 Supine Exercise Name HEP review- w/opp knee to chest Side bilateral Reps/Minutes quick review piriformis Supine Exercise Name HEP review knee to opp chest Side bilateral Reps/Minutes 15 sec X1 each LE Comments quick review Modified [place] stretch Supine Exercise Name HEP Side bilateral Reps/Minutes 30 sec each LE X1 Comments knee to opp chest to avoid back pain Standing Exercises sidesteps Standing Exercise Name HEP Side bilateral Equipment Used [place] latex free at knees Reps/Minutes 20ft ea Comments in mini squat Pallof press Standing Exercise Name HEP Side bilateral Resistance latex free orange 2 bands Reps/Minutes 15 Comments Verbal cues to avoid rot Manual Therapy Treatment Consent Patient gave verbal consent for manual Yes treatment Soft Tissue Mobilization LS paraspinals Mobilization Type Rolling Comments T-L Paraspinals w/seated flex Joint Mobilizations lumbar Comments distraction in quadurped L3-S1 s/l L tranverse glide R L4-5 c /r coccyx Comments caudal, PA R, SB L c/r w/hip rot sacrum Comments R nutation c/r and percussion PT-OP-T Assessment and Plan Start: 08/08/24 14:04 Freq: Status: Active Protocol: Document 08/29/24 09:51 [facility] (Rec: 08/29/24 10:49 [facility] [id number]) Physical Therapy Assessment Goals activity Short Term Goal (STG) Pt will be able to squat w/o inc pain STG Duration 09/23/24 Retirement Goal (LTG) Pt will be able to lift child and return to working out w/o pain more than 1/1o LTG Duration 10/23/24 posture Short Term Goal (STG) Pt will score at least 2/5 to show improved postural alignment STG Duration 09/23/24 Retirement Goal (LTG) Pt will score at least 4/5 to show improved postural alignment LTG Duration 10/23/24 strength Short Term Goal (STG) Pt will be indep w/HEP STG Duration 09/23 [employer] Goal (LTG) Pt will score at least 3/5 on EFT and LPM in all planes and at least 4+/5 on all LE MMT B to show improved stability to allow greater ease w/activity. LTG Duration 10/23/24 Assessment Summary Assessment Improved flex after manual and improved SB. Cues needed w/ strength exercises but did well overall w/ stretches. Physical Therapy Plan Frequency and Duration Frequency of Treatment 2x/Week Duration of treatment (weeks) 10 Plan of Care Start Date 08/12/24 Plan of Care End Date 10/23/24 Next Visit Focus/Plan Next Note Type Treatment Note Next Visit Plan coccyx mobs, innominate and lumbar mobility as needed HEP: review current exercises and try quadruped strength
--- NOTE | 2024-09-02 13:21 | PT.OTN ---
Current Diagnoses Other intervertebral disc degeneration, lumbar region with discogenic back pain only (09/02/24) Physical Therapy Treatment Note PT-OP-A Visit Information Start: 08/08/24 14:04 Freq: Status: Active Protocol: Document 09/02/24 09:54 [facility] (Rec: 09/02/24 13:20 [facility] [id number]) Out-Patient Physical Therapy Visit Information Visit Information Visit Type Treatment Note Visit Note Access Code [email or web address] Visit Start Time 09:50 Visit Stop Time 10:30 Visit Number 03/18 Number of SLEEVE SEPARATOR Visits 0 PT-OP-B Current Condition Start: 08/08/24 14:04 Freq: Status: Active Protocol: Document 08/12/24 09:49 [facility] (Rec: 08/12/24 10:48 [facility] [id number]) Current Condition History of Current Condition Onset Date Apr 2024 Current Complaints LBP History of Current Condition Was moving a mattress w/a friend and she tripped over the curb and fell back onto her back onto the pavement. 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 Remembers falling and bouncing almost straight up and felt back pain immediately. She has a Cervical issue in the past too. Later had issues at work feeling sick and having a protruded area at sternum. Did CT scan and found a bulge in disc. mom did have back issue also. Prior to this, didn't have back pain. Saw PT about 6 yeras ago for neck and has had injections that helped. DId get a gym membership and has been taking things pretty easy and just walking. She has had a knee and neck issues in the past that stopped her from running. TYpically likes to cycle, lift, and do stair stepper. Occ takes 800mg of ibupofen when it gets really bad. Denies symptoms down legs . Has torn meniscus on L knee when tries to walk and attempts to run, it flares up. Has been told she has a minor scoliosis Prior Treatments and Tests CT of abdomen: Bones: No aggressive osseous abnormality . L5-S1 disc bulge without significant spinal canal narrowing. IMPRESSION: Mild hepatomegaly; the left hepatic lobe extends below the xiphoid process. The uterus is enlarged, with heterogeneous enhancement. Findings may indicate diffuse adenomyosis. Treatment Goals Patient/Caregiver Goals Get back to working out, return to running, be able to squat and lift child and at work PT-OP-C Subjective Start: 08/08/24 14:04 Freq: Status: Active Protocol: Document 09/02/24 09:54 [facility] (Rec: 09/02/24 13:20 [facility] [id number]) OP-PT Subjective Patient Comments Patient Comments pt reports sore after last session later that night but went away. She hasn't done exercises. PT-OP-D Balance Start: 08/08/24 14:04 Freq: Status: Active Protocol: Document 08/12/24 09:49 [facility] (Rec: 08/12/24 10:48 [facility] [id number]) Balance Tests Single Limb Standing Single Limb- Right >30 sec but pain in back Single Limb- Left >30 but pain in back PT-OP-F Manual Assessment Start: 08/08/24 14:04 Freq: Status: Active Protocol: Document 08/12/24 09:49 [facility] (Rec: 08/12/24 10:48 [facility] [id number]) Manual Assessments Soft Tissue Assessment Soft Tissue Mobility Assessment inc tension R QL, and lat abdomen R PT-OP-G Mobility & Gait Start: 08/08/24 14:04 Freq: Status: Active Protocol: Document 08/12/24 09:49 [facility] (Rec: 08/12/24 10:48 [facility] [id number]) OP Gait Assessment Comments Gait Comments dec stance time on RLE and dec trunk motion PT-OP-J Posture/Palpation/Skin Start: 08/08/24 14:04 Freq: Status: Active Protocol: Document 08/12/24 09:49 [facility] (Rec: 08/12/24 10:48 [facility] [id number]) Posture Evaluation Mauri Postural Classification System Mauri Postural Classifications Posterior/Anterior Vertical Compression Test 1 Elbow Flexion Test 0 Lumbar Protective Mechanism Left AP 0 Lumbar Protective Mechanism Right AP 0 Lumbar Protective Mechanism Left PA 0 Lumbar Protective Mechanism Right PA 0 Comments Posture Comments inversion of L foot, B genu recurvatum, R pelvic shear, L scap higher, L trunk rot, R scap more ant tipped and abd, inc kyphosis, equal greater trochanter and R iliac crest higher PT-OP-K Range of Motion Start: 08/08/24 14:04 Freq: Status: Active Protocol: Document 08/12/24 09:49 [facility] (Rec: 08/12/24 10:48 [facility] [id number]) Lumbar Spine Range of Motion Lumbar Spine Active Percentage Flexion 30 Extension 25 Rotation Left 60 Rotation Right 50 Lateral Flexion Left 75 Lateral Flexion Right 75 Comments feels pain on R w/B SB; big stretch to back w/rot PT-OP-L Special Tests Start: 08/08/24 14:04 Freq: Status: Active Protocol: Document 08/12/24 09:49 [facility] (Rec: 08/12/24 10:48 [facility] [id number]) Special Tests Lumbar Spine Special Tests Straight Leg Raise Comments B positive Chester Test Results R positive hip flexor march Test Results L positive Slump Test Results positive B Other Special Tests Special Tests BP 116/64 PT-OP-M Strength Start: 08/08/24 14:04 Freq: Status: Active Protocol: Document 08/12/24 09:49 [facility] (Rec: 08/12/24 10:48 [facility] [id number]) Hip Strength Hip Manual Muscle Testing Right Flexion (L2) 3 Fair Extension (S1) 3 Fair Abduction 3+ Fair+ Adduction 3+ Fair+ External Rotation 4- Good- Internal Rotation 4- Good- Left Flexion (L2) 3+ Fair+ Extension (S1) 3 Fair Abduction 3+ Fair+ Adduction 3+ Fair+ External Rotation 3+ Fair+ Internal Rotation 3+ Fair+ Comments pain in back B hip ext Knee Strength Knee Manual Muscle Testing R Flexion (S2) 4- Good- Extension (L3) 4- Good- L Flexion (S2) 4- Good- Extension (L3) 4 Good Ankle/Foot Strength Ankle and Foot Manual Muscle Testing B Dorsiflexion (L4) 5 Normal Plantarflexion (S1) 5 Normal Comments Pf tested seated PT-OP-Q Treatments Start: 08/08/24 14:04 Freq: Status: Active Protocol: Document 09/02/24 09:54 [facility] (Rec: 09/02/24 13:20 [facility] [id number]) Therapeutic Exercises Supine Exercises Modified Chester stretch Supine Exercise Name HEP Side bilateral Reps/Minutes 30 sec each LE X1 Comments knee to opp chest to avoid back pain Standing Exercises push up Side bilateral Reps/Minutes 8 Comments counter -cues further away plank Standing Exercise Name counter Side bilateral Reps/Minutes 2x30 sec Comments inc time for form; 2nd set w/ leg lifts squat Side bilateral Reps/Minutes 15 Comments cues full range sidesteps Standing Exercise Name HEP Side bilateral Equipment Used kashia latex free at knees Reps/Minutes 20ft ea Comments in mini squat-cues toes fwd and knee leading Pallof press Standing Exercise Name HEP 1. standing 2. mini squat Side bilateral Resistance latex free orange 2 bands Reps/Minutes 8 ea Comments Verbal cues to avoid rot Manual Therapy Treatment Consent Patient gave verbal consent for manual Yes treatment Soft Tissue Mobilization LS paraspinals Body Location R paraspinals and intervertebral, QL Mobilization Type Rolling Comments w/ post dep Joint Mobilizations lumbar Comments s/l distraction L3-s1 c/r w/ pelvic pattern s/l transverse R L3-5/c/r pelvic pattern PT-OP-T Assessment and Plan Start: 08/08/24 14:04 Freq: Status: Active Protocol: Document 09/02/24 09:54 [facility] (Rec: 09/02/24 13:20 [facility] [id number]) Physical Therapy Assessment Goals activity Short Term Goal (STG) Pt will be able to squat w/o inc pain STG Duration 09/23/24 Assisted Goal (LTG) Pt will be able to lift child and return to working out w/o pain more than 1/1o LTG Duration 10/23/24 posture Short Term Goal (STG) Pt will score at least 2/5 to show improved postural alignment STG Duration 09/23/24 Cottage Supervisor Goal (LTG) Pt will score at least 4/5 to show improved postural alignment LTG Duration 10/23/24 strength Short Term Goal (STG) Pt will be indep w/HEP STG Duration 09/23 Assisted Goal (LTG) Pt will score at least 3/5 on EFT and LPM in all planes and at least 4+/5 on all LE MMT B to show improved stability to allow greater ease w/activity. LTG Duration 10/23/24 Assessment Summary Assessment Pt had improved L SB and rotation after manual treatment but did still note tension along R side. Encouraged to work on increasing HEP compliance Physical Therapy Plan Frequency and Duration Frequency of Treatment 2x/Week Duration of treatment (weeks) 10 Plan of Care Start Date 08/12/24 Plan of Care End Date 10/23/24 Next Visit Focus/Plan Next Note Type Treatment Note Next Visit Plan coccyx mobs, innominate and lumbar mobility as needed HEP: review current exercises and try quadruped strength
--- NOTE | 2024-09-05 10:44 | PT.OTN ---
Current Diagnoses Other intervertebral disc degeneration, lumbar region with discogenic back pain only (09/05/24) Physical Therapy Treatment Note PT-OP-A Visit Information Start: 08/08/24 14:04 Freq: Status: Active Protocol: Document 09/05/24 09:45 [facility] (Rec: 09/05/24 10:44 [facility] [id number]) Out-Patient Physical Therapy Visit Information Visit Information Visit Type Treatment Note Visit Note Access Code [id number] Visit Start Time 09:50 Visit Stop Time 10:30 Visit Number 04/17 Number of FIRE OBSERVER Visits 0 PT-OP-B Current Condition Start: 08/08/24 14:04 Freq: Status: Active Protocol: Document 08/12/24 09:49 [facility] (Rec: 08/12/24 10:48 [facility] [id number]) Current Condition History of Current Condition Onset Date Apr 2024 Current Complaints LBP History of Current Condition Was moving a mattress w/a friend and she tripped over the curb and fell back onto her back onto the pavement. 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 Remembers falling and bouncing almost straight up and felt back pain immediately. She has a Cervical issue in the past too. Later had issues at work feeling sick and having a protruded area at sternum. Did CT scan and found a bulge in disc. mom did have back issue also. Prior to this, didn't have back pain. Saw PT about 6 yeras ago for neck and has had injections that helped. DId get a gym membership and has been taking things pretty easy and just walking. She has had a knee and neck issues in the past that stopped her from running. TYpically likes to cycle, lift, and do stair stepper. Occ takes 800mg of ibupofen when it gets really bad. Denies symptoms down legs . Has torn meniscus on L knee when tries to walk and attempts to run, it flares up. Has been told she has a minor scoliosis Prior Treatments and Tests CT of abdomen: Bones: No aggressive osseous abnormality . L5-S1 disc bulge without significant spinal canal narrowing. IMPRESSION: Mild hepatomegaly; the left hepatic lobe extends below the xiphoid process. The uterus is enlarged, with heterogeneous enhancement. Findings may indicate diffuse adenomyosis. Treatment Goals Patient/Caregiver Goals Get back to working out, return to running, be able to squat and lift child and at work PT-OP-C Subjective Start: 08/08/24 14:04 Freq: Status: Active Protocol: Document 09/05/24 09:45 [facility] (Rec: 09/05/24 10:44 [facility] [id number]) OP-PT Subjective Patient Comments Patient Comments pt reports hasn't done exercises. more soreness in back but thinks d/t using back more PT-OP-D Balance Start: 08/08/24 14:04 Freq: Status: Active Protocol: Document 08/12/24 09:49 [facility] (Rec: 08/12/24 10:48 [facility] [id number]) Balance Tests Single Limb Standing Single Limb- Right >30 sec but pain in back Single Limb- Left >30 but pain in back PT-OP-F Manual Assessment Start: 08/08/24 14:04 Freq: Status: Active Protocol: Document 08/12/24 09:49 [facility] (Rec: 08/12/24 10:48 [facility] [id number]) Manual Assessments Soft Tissue Assessment Soft Tissue Mobility Assessment inc tension R QL, and lat abdomen R PT-OP-G Mobility & Gait Start: 08/08/24 14:04 Freq: Status: Active Protocol: Document 08/12/24 09:49 [facility] (Rec: 08/12/24 10:48 [facility] [id number]) OP Gait Assessment Comments Gait Comments dec stance time on RLE and dec trunk motion PT-OP-J Posture/Palpation/Skin Start: 08/08/24 14:04 Freq: Status: Active Protocol: Document 08/12/24 09:49 [facility] (Rec: 08/12/24 10:48 [facility] [id number]) Posture Evaluation Mauri Postural Classification System Mauri Postural Classifications Posterior/Anterior Vertical Compression Test 1 Elbow Flexion Test 0 Lumbar Protective Mechanism Left AP 0 Lumbar Protective Mechanism Right AP 0 Lumbar Protective Mechanism Left PA 0 Lumbar Protective Mechanism Right PA 0 Comments Posture Comments inversion of L foot, B genu recurvatum, R pelvic shear, L scap higher, L trunk rot, R scap more ant tipped and abd, inc kyphosis, equal greater trochanter and R iliac crest higher PT-OP-K Range of Motion Start: 08/08/24 14:04 Freq: Status: Active Protocol: Document 08/12/24 09:49 [facility] (Rec: 08/12/24 10:48 [facility] [id number]) Lumbar Spine Range of Motion Lumbar Spine Active Percentage Flexion 30 Extension 25 Rotation Left 60 Rotation Right 50 Lateral Flexion Left 75 Lateral Flexion Right 75 Comments feels pain on R w/B SB; big stretch to back w/rot PT-OP-L Special Tests Start: 08/08/24 14:04 Freq: Status: Active Protocol: Document 08/12/24 09:49 [facility] (Rec: 08/12/24 10:48 [facility] [id number]) Special Tests Lumbar Spine Special Tests Straight Leg Raise Comments B positive Chester Test Results R positive hip flexor march Test Results L positive Slump Test Results positive B Other Special Tests Special Tests BP 116/64 PT-OP-M Strength Start: 08/08/24 14:04 Freq: Status: Active Protocol: Document 08/12/24 09:49 [facility] (Rec: 08/12/24 10:48 [facility] [id number]) Hip Strength Hip Manual Muscle Testing Right Flexion (L2) 3 Fair Extension (S1) 3 Fair Abduction 3+ Fair+ Adduction 3+ Fair+ External Rotation 4- Good- Internal Rotation 4- Good- Left Flexion (L2) 3+ Fair+ Extension (S1) 3 Fair Abduction 3+ Fair+ Adduction 3+ Fair+ External Rotation 3+ Fair+ Internal Rotation 3+ Fair+ Comments pain in back B hip ext Knee Strength Knee Manual Muscle Testing R Flexion (S2) 4- Good- Extension (L3) 4- Good- L Flexion (S2) 4- Good- Extension (L3) 4 Good Ankle/Foot Strength Ankle and Foot Manual Muscle Testing B Dorsiflexion (L4) 5 Normal Plantarflexion (S1) 5 Normal Comments Pf tested seated PT-OP-Q Treatments Start: 08/08/24 14:04 Freq: Status: Active Protocol: Document 09/05/24 09:45 [facility] (Rec: 09/05/24 10:44 [facility] [id number]) Therapeutic Exercises Supine Exercises LTR Side bilateral Reps/Minutes 5 sec hold x12 Comments cues core engagement abdominal bracing with Le extension Supine Exercise Name review HEP Side bilateral Reps/Minutes X15 Comments Verbal cues Standing Exercises squat Standing Exercise Name HEP Side bilateral Reps/Minutes 15 Comments cues glute engagment sidesteps Standing Exercise Name HEP Side bilateral Equipment Used [place] latex free at knees Reps/Minutes 20ft ea Comments in mini squat-cues toes fwd and knee leading Pallof press Standing Exercise Name standing in good posture Side bilateral Resistance latex free [place] 2 bands Reps/Minutes 10 ea Comments Verbal cues to avoid rot Other Exercises plank Other Exercise Name 1.forearm and feet 2. forearm and knees Side bilateral Reps/Minutes 20 sec ea Comments cues neutral spine but notes feels in back quadruped Other Exercise Name fists and knees Side bilateral Reps/Minutes 12 Comments VC and tactile cues for no trunk rot Manual Therapy Treatment Consent Patient gave verbal consent for manual Yes treatment Soft Tissue Mobilization bilateral hips Body Location L iliopsoas Mobilization Type Sustained Pressure Joint Mobilizations innominate Comments L ext FM PT-OP-T Assessment and Plan Start: 08/08/24 14:04 Freq: Status: Active Protocol: Document 09/05/24 09:45 [facility] (Rec: 09/05/24 10:44 [facility] [id number]) Physical Therapy Assessment Goals activity Short Term Goal (STG) Pt will be able to squat w/o inc pain STG Duration 09/23/24 Senior Care Goal (LTG) Pt will be able to lift child and return to working out w/o pain more than 1/1o LTG Duration 10/23/24 posture Short Term Goal (STG) Pt will score at least 2/5 to show improved postural alignment STG Duration 09/23/24 Senior Care Goal (LTG) Pt will score at least 4/5 to show improved postural alignment LTG Duration 10/23/24 strength Short Term Goal (STG) Pt will be indep w/HEP STG Duration 09/23 Produce Department Supervisor Goal (LTG) Pt will score at least 3/5 on EFT and LPM in all planes and at least 4+/5 on all LE MMT B to show improved stability to allow greater ease w/activity. LTG Duration 10/23/24 Assessment Summary Assessment Pt requires cues for core exercises and educated on avoiding feeling exercises in back vs in mm. She is still weak in core. Improved L hip ext w/manual Physical Therapy Plan Frequency and Duration Frequency of Treatment 2x/Week Duration of treatment (weeks) 10 Plan of Care Start Date 08/12/24 Plan of Care End Date 10/23/24 Next Visit Focus/Plan Next Note Type Treatment Note Next Visit Plan advance core as able; manual to spine and pelvis, PNF
--- NOTE | 2024-09-16 18:37 | PT.OTN ---
Current Diagnoses Other intervertebral disc degeneration, lumbar region with discogenic back pain only (09/16/24) Physical Therapy Treatment Note PT-OP-A Visit Information Start: 08/08/24 14:04 Freq: Status: Active Protocol: Document 09/16/24 10:39 [facility] (Rec: 09/16/24 11:36 [facility] [id number]) Out-Patient Physical Therapy Visit Information Visit Information Visit Type Progress Note Visit Note Access Code [email or web address] Visit Start Time 10:48 Visit Stop Time 11:33 Visit Number 05/18 Number of [place] [facility] Visits 0 PT-OP-B Current Condition Start: 08/08/24 14:04 Freq: Status: Active Protocol: Document 08/12/24 09:49 [facility] (Rec: 08/12/24 10:48 [facility] [id number]) Current Condition History of Current Condition Onset Date Apr 2024 Current Complaints LBP History of Current Condition Was moving a mattress w/a friend and she tripped over the curb and fell back onto her back onto the pavement. 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 Remembers falling and bouncing almost straight up and felt back pain immediately. She has a Cervical issue in the past too. Later had issues at work feeling sick and having a protruded area at sternum. Did CT scan and found a bulge in disc. mom did have back issue also. Prior to this, didn't have back pain. Saw PT about 6 yeras ago for neck and has had injections that helped. DId get a gym membership and has been taking things pretty easy and just walking. She has had a knee and neck issues in the past that stopped her from running. TYpically likes to cycle, lift, and do stair stepper. Occ takes 800mg of ibupofen when it gets really bad. Denies symptoms down legs . Has torn meniscus on L knee when tries to walk and attempts to run, it flares up. Has been told she has a minor scoliosis Prior Treatments and Tests CT of abdomen: Bones: No aggressive osseous abnormality . L5-S1 disc bulge without significant spinal canal narrowing. IMPRESSION: Mild hepatomegaly; the left hepatic lobe extends below the xiphoid process. The uterus is enlarged, with heterogeneous enhancement. Findings may indicate diffuse adenomyosis. Treatment Goals Patient/Caregiver Goals Get back to working out, return to running, be able to squat and lift child and at work PT-OP-C Subjective Start: 08/08/24 14:04 Freq: Status: Active Protocol: Document 09/16/24 10:39 [facility] (Rec: 09/16/24 18:37 [facility] [id number]) OP-PT Subjective Patient Comments Patient Comments pt reports can now sleep through the night and wake only 1x vs 5x d/t pain. notes feels like not doing enough in PT to focus on back. Questions US PT-OP-D Balance Start: 08/08/24 14:04 Freq: Status: Active Protocol: Document 08/12/24 09:49 [facility] (Rec: 08/12/24 10:48 [facility] [id number]) Balance Tests Single Limb Standing Single Limb- Right >30 sec but pain in back Single Limb- Left >30 but pain in back PT-OP-F Manual Assessment Start: 08/08/24 14:04 Freq: Status: Active Protocol: Document 08/12/24 09:49 [facility] (Rec: 08/12/24 10:48 [facility] [id number]) Manual Assessments Soft Tissue Assessment Soft Tissue Mobility Assessment inc tension R QL, and lat abdomen R PT-OP-G Mobility & Gait Start: 08/08/24 14:04 Freq: Status: Active Protocol: Document 08/12/24 09:49 [facility] (Rec: 08/12/24 10:48 [facility] [id number]) OP Gait Assessment Comments Gait Comments dec stance time on RLE and dec trunk motion PT-OP-J Posture/Palpation/Skin Start: 08/08/24 14:04 Freq: Status: Active Protocol: Document 09/16/24 10:39 [facility] (Rec: 09/16/24 11:36 [facility] [id number]) Posture Evaluation Mauri Postural Classification System Mauri Postural Classifications Posterior/Anterior Vertical Compression Test 2 Elbow Flexion Test 0 Lumbar Protective Mechanism Left AP 0 Lumbar Protective Mechanism Right AP 0 Lumbar Protective Mechanism Left PA 1 Lumbar Protective Mechanism Right PA 0 PT-OP-K Range of Motion Start: 08/08/24 14:04 Freq: Status: Active Protocol: Document 08/12/24 09:49 [facility] (Rec: 08/12/24 10:48 [facility] [id number]) Lumbar Spine Range of Motion Lumbar Spine Active Percentage Flexion 30 Extension 25 Rotation Left 60 Rotation Right 50 Lateral Flexion Left 75 Lateral Flexion Right 75 Comments feels pain on R w/B SB; big stretch to back w/rot PT-OP-L Special Tests Start: 08/08/24 14:04 Freq: Status: Active Protocol: Document 08/12/24 09:49 [facility] (Rec: 08/12/24 10:48 [facility] [id number]) Special Tests Lumbar Spine Special Tests Straight Leg Raise Comments B positive Chester Test Results R positive hip flexor march Test Results L positive Slump Test Results positive B Other Special Tests Special Tests BP 116/64 PT-OP-M Strength Start: 08/08/24 14:04 Freq: Status: Active Protocol: Document 09/16/24 10:39 [facility] (Rec: 09/16/24 11:36 [facility] [id number]) Hip Strength Hip Manual Muscle Testing Right Flexion (L2) 3+ Fair+ Extension (S1) 4- Good- Abduction 4 Good Adduction 4 Good External Rotation 4 Good Internal Rotation 4+ Good+ Left Flexion (L2) 4- Good- Extension (S1) 4- Good- Abduction 4 Good Adduction 4- Good- External Rotation 4 Good Internal Rotation 4+ Good+ Comments pain in back B hip ext Knee Strength Knee Manual Muscle Testing R Flexion (S2) 4 Good Extension (L3) 4 Good L Flexion (S2) 4+ Good+ Extension (L3) 4 Good PT-OP-Q Treatments Start: 08/08/24 14:04 Freq: Status: Active Protocol: Document 09/16/24 10:39 [facility] (Rec: 09/16/24 18:37 [facility] [id number]) Therapeutic Exercises Standing Exercises squat Standing Exercise Name side step to squat partial Side bilateral Reps/Minutes 6 ea Comments cues to hold at end range 5 sec and go comfortable depth Other Exercises isometrics Other Exercise Name BLE MMT and LPM, VCT, EFT Manual Therapy Treatment Consent Patient gave verbal consent for manual Yes treatment Soft Tissue Mobilization LS paraspinals Body Location sacral multifidi and along SI Mobilization Type Rolling Intensity/Depth Moderate Body Position Sidelying Joint Mobilizations sacrum Joint caudal s/l and s/l PA R Self-Care/Home Management Treatment Education Other Education 7 min: discussion of progress w/pt and edu on importance of progress to cont PT. Encouraged to follow up w/MD d /t concern that not getting more improvement in time se has been attending PT. Edu to focus on activities that continue to be difficult for her. Edu US is not appropriate for the SI and sacrum region. Edu on importance of core and hip mm strength for stabilization PT-OP-T Assessment and Plan Start: 08/08/24 14:04 Freq: Status: Active Protocol: Document 09/16/24 10:39 [facility] (Rec: 09/16/24 11:36 [facility] [id number]) Physical Therapy Assessment Goals activity Short Term Goal (STG) Pt will be able to squat w/o inc pain 09/16-can do reps but not hold and cannot do full range STG Duration 09/23 Snf Goal (LTG) Pt will be able to lift child and return to working out w/o pain more than 10/04 09/16-no change-not going to gym yet d/t concern for pain and pain w/lifting child LTG Duration 10/23/24 posture Short Term Goal (STG) Pt will score at least 2/5 to show improved postural alignment STG Duration achieved 09/16 2/5 Snf Goal (LTG) Pt will score at least 4/5 to show improved postural alignment LTG Duration 10/23/24 strength Short Term Goal (STG) Pt will be indep w/HEP 09/16-doing squats and some exercises recently STG Duration 09/23 Snf Goal (LTG) Pt will score at least 3/5 on EFT and LPM in all planes and at least 4+/5 on all LE MMT B to show improved stability to allow greater ease w/activity. 09/16-improved LE strength, major core weakness still present LTG Duration 10/23/24 Assessment Summary Assessment Pt had improved strength w/ testing in LEs but still significant core weakness. Pt has been compliant more recently w/some of HEP, but not all d/t her schedule. She did note some functional improvements like only waking up 1x/night vs 5x/night and can do a squat down now but cont to not be able to hold it w/o inc pain. She is limited with her mobility still and functional activity tolerance but has some limit in progress d/t ability for compliance w/ HEP d/t time restrictions. She would benefit from cont PT to work on progression of ability to squat and work w/o inc back pain. Physical Therapy Plan Frequency and Duration Frequency of Treatment 2x/Week Duration of treatment (weeks) 10 Plan of Care Start Date 08/12/24 Plan of Care End Date 10/23/24 Therapeutic Interventions Therapeutic Interventions Balance Training,Gait Training ,Home Exercise Program,Joint Mobilizations,Manual Therapy, Neuromuscular Re-education, Orthotic/Prosthetic Management ,Patient/Caregiver Education, Self-Care/Home Management,Soft Tissue Mobilization,Taping, Therapeutic Activities, Therapeutic Exercises Modalities Cold Pack/Ice Massage,Electric Stimulation,Hot Packs, Infrared Therapy,Ultrasound Next Visit Focus/Plan Next Note Type Treatment Note Next Visit Plan advance core as able and work on ability to squat; manual to sacrum and pelvis, consider traction PNF
--- NOTE | 2024-09-20 12:26 | PT.OTN ---
Current Diagnoses Other intervertebral disc degeneration, lumbar region with discogenic back pain only (09/20/24) Physical Therapy Treatment Note PT-OP-A Visit Information Start: 08/08/24 14:04 Freq: Status: Active Protocol: Document 09/20/24 11:08 AB (Rec: 09/20/24 12:25 AB [id number]) Out-Patient Physical Therapy Visit Information Visit Information Visit Type Progress Note Visit Note Access Code [id number] Visit Start Time 11:34 Visit Stop Time 12:21 Visit Number 06/18 Number of EXECUTIVE DIRECTOR OF MARKETING Visits 1 PT-OP-B Current Condition Start: 08/08/24 14:04 Freq: Status: Active Protocol: Document 08/12/24 09:49 [facility] (Rec: 08/12/24 10:48 [facility] [id number]) Current Condition History of Current Condition Onset Date Apr 2024 Current Complaints LBP History of Current Condition Was moving a mattress w/a friend and she tripped over the curb and fell back onto her back onto the pavement. 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 Remembers falling and bouncing almost straight up and felt back pain immediately. She has a Cervical issue in the past too. Later had issues at work feeling sick and having a protruded area at sternum. Did CT scan and found a bulge in disc. mom did have back issue also. Prior to this, didn't have back pain. Saw PT about 6 yeras ago for neck and has had injections that helped. DId get a gym membership and has been taking things pretty easy and just walking. She has had a knee and neck issues in the past that stopped her from running. TYpically likes to cycle, lift, and do stair stepper. Occ takes 800mg of ibupofen when it gets really bad. Denies symptoms down legs . Has torn meniscus on L knee when tries to walk and attempts to run, it flares up. Has been told she has a minor scoliosis Prior Treatments and Tests CT of abdomen: Bones: No aggressive osseous abnormality . L5-S1 disc bulge without significant spinal canal narrowing. IMPRESSION: Mild hepatomegaly; the left hepatic lobe extends below the xiphoid process. The uterus is enlarged, with heterogeneous enhancement. Findings may indicate diffuse adenomyosis. Treatment Goals Patient/Caregiver Goals Get back to working out, return to running, be able to squat and lift child and at work PT-OP-C Subjective Start: 08/08/24 14:04 Freq: Status: Active Protocol: Document 09/20/24 11:08 AB (Rec: 09/20/24 12:25 AB [id number]) OP-PT Subjective Patient Comments Patient Comments Patient reports she is worse, put together a [place] house, didn't anticpate this would hurt her back. Patient comments she was sleeping better until builcing the [place] house. Patient reports unable to perform exercises so regularly. PT-OP-D Balance Start: 08/08/24 14:04 Freq: Status: Active Protocol: Document 08/12/24 09:49 [facility] (Rec: 08/12/24 10:48 [facility] [id number]) Balance Tests Single Limb Standing Single Limb- Right >30 sec but pain in back Single Limb- Left >30 but pain in back PT-OP-F Manual Assessment Start: 08/08/24 14:04 Freq: Status: Active Protocol: Document 08/12/24 09:49 [facility] (Rec: 08/12/24 10:48 [facility] [id number]) Manual Assessments Soft Tissue Assessment Soft Tissue Mobility Assessment inc tension R QL, and lat abdomen R PT-OP-G Mobility & Gait Start: 08/08/24 14:04 Freq: Status: Active Protocol: Document 08/12/24 09:49 [facility] (Rec: 08/12/24 10:48 [facility] [id number]) OP Gait Assessment Comments Gait Comments dec stance time on RLE and dec trunk motion PT-OP-J Posture/Palpation/Skin Start: 08/08/24 14:04 Freq: Status: Active Protocol: Document 09/16/24 10:39 [facility] (Rec: 09/16/24 11:36 [facility] [id number]) Posture Evaluation Mauri Postural Classification System Mauri Postural Classifications Posterior/Anterior Vertical Compression Test 2 Elbow Flexion Test 0 Lumbar Protective Mechanism Left AP 0 Lumbar Protective Mechanism Right AP 0 Lumbar Protective Mechanism Left PA 1 Lumbar Protective Mechanism Right PA 0 PT-OP-K Range of Motion Start: 08/08/24 14:04 Freq: Status: Active Protocol: Document 08/12/24 09:49 [facility] (Rec: 08/12/24 10:48 [facility] [id number]) Lumbar Spine Range of Motion Lumbar Spine Active Percentage Flexion 30 Extension 25 Rotation Left 60 Rotation Right 50 Lateral Flexion Left 75 Lateral Flexion Right 75 Comments feels pain on R w/B SB; big stretch to back w/rot PT-OP-L Special Tests Start: 08/08/24 14:04 Freq: Status: Active Protocol: Document 08/12/24 09:49 [facility] (Rec: 08/12/24 10:48 [facility] [id number]) Special Tests Lumbar Spine Special Tests Straight Leg Raise Comments B positive Chester Test Results R positive hip flexor march Test Results L positive Slump Test Results positive B Other Special Tests Special Tests BP 116/64 PT-OP-M Strength Start: 08/08/24 14:04 Freq: Status: Active Protocol: Document 09/16/24 10:39 [facility] (Rec: 09/16/24 11:36 [facility] [id number]) Hip Strength Hip Manual Muscle Testing Right Flexion (L2) 3+ Fair+ Extension (S1) 4- Good- Abduction 4 Good Adduction 4 Good External Rotation 4 Good Internal Rotation 4+ Good+ Left Flexion (L2) 4- Good- Extension (S1) 4- Good- Abduction 4 Good Adduction 4- Good- External Rotation 4 Good Internal Rotation 4+ Good+ Comments pain in back B hip ext Knee Strength Knee Manual Muscle Testing R Flexion (S2) 4 Good Extension (L3) 4 Good L Flexion (S2) 4+ Good+ Extension (L3) 4 Good PT-OP-Q Treatments Start: 08/08/24 14:04 Freq: Status: Active Protocol: Document 09/20/24 11:08 AB (Rec: 09/20/24 12:25 AB [id number]) Therapeutic Exercises Supine Exercises Figure 4 Supine Exercise Name HEP review- w/opp knee to chest Side bilateral Reps/Minutes 60 sec Comments post manual piriformis Side bilateral Reps/Minutes 60 sec Comments post manual Standing Exercises squat Standing Exercise Name squat Side bilateral Reps/Minutes X10 Comments Post taping Manual Therapy Treatment Soft Tissue Mobilization LS paraspinals Body Location sacral multifidi and along SI, and lumbar paraspinals Mobilization Type Rolling Intensity/Depth Moderate Body Position Sidelying bilateral hips Body Location glute/piriformis Manual Traction manual traction Body Position Hooklying Reps/Duration 3 min total X 3 reps with 2-5 sec breaks betw Taping for posture Body Location spine/scapula Treatment Focus posture Type of Tape cover roll and leukotape Skin Inspection WNL Comments Y at scapula to thoracic/ lumbar paraspinals. Patient ed to remove tape in 3-5 days or immediately if skin irritation occurs PT-OP-T Assessment and Plan Start: 08/08/24 14:04 Freq: Status: Active Protocol: Document 09/20/24 11:08 AB (Rec: 09/20/24 12:25 AB [id number]) Physical Therapy Assessment Goals activity Short Term Goal (STG) Pt will be able to squat w/o inc pain 09/16-can do reps but not hold and cannot do full range STG Duration 09/23 Microbiology Director Goal (LTG) Pt will be able to lift child and return to working out w/o pain more than 10/04 09/16-no change-not going to gym yet d/t concern for pain and pain w/lifting child LTG Duration 10/23/24 posture Short Term Goal (STG) Pt will score at least 2/5 to show improved postural alignment STG Duration achieved 09/16 2/5 Microbiology Director Goal (LTG) Pt will score at least 4/5 to show improved postural alignment LTG Duration 10/23/24 strength Short Term Goal (STG) Pt will be indep w/HEP 09/16-doing squats and some exercises recently STG Duration 09/23 Microbiology Director Goal (LTG) Pt will score at least 3/5 on EFT and LPM in all planes and at least 4+/5 on all LE MMT B to show improved stability to allow greater ease w/activity. 09/16-improved LE strength, major core weakness still present LTG Duration 10/23/24 Assessment Summary Assessment Patient rates pain SI area 3- end of session. Reports feeling tightness vs pain end ROM squat. Physical Therapy Plan Frequency and Duration Frequency of Treatment 2x/Week Duration of treatment (weeks) 10 Plan of Care Start Date 08/12/24 Plan of Care End Date 10/23/24 Next Visit Focus/Plan Next Note Type Treatment Note Next Visit Plan advance core as able and work on ability to squat; manual to sacrum and pelvis, consider traction PNF
--- NOTE | 2024-09-30 15:49 | PT-OP ANOTE ---
Pt cancelled >24 hrs in advance for today's appt via text response, no reason given. PREPARATION SUPERVISOR called and left message inquiring doing ok and if is anything we can do to help keep attendance. REminded of next appts for PT and OT 2nd week Sep. If need cancel appreciate reason, allow us opportunity to support her.
--- NOTE | 2024-10-16 14:28 | PT.OTN ---
Current Diagnoses Other intervertebral disc degeneration, lumbar region with discogenic back pain only (10/16/24) Physical Therapy Treatment Note PT-OP-A Visit Information Start: 08/08/24 14:04 Freq: Status: Active Protocol: Document 10/16/24 09:50 [facility] (Rec: 10/16/24 14:28 [facility] [id number]) Out-Patient Physical Therapy Visit Information Visit Information Visit Type Progress Note Visit Note Access Code [email or web address] Visit Start Time 09:50 Visit Stop Time 10:43 Visit Number 07/18 Number of STRIP ROLLER Visits 0 PT-OP-B Current Condition Start: 08/08/24 14:04 Freq: Status: Active Protocol: Document 08/12/24 09:49 [facility] (Rec: 08/12/24 10:48 [facility] [id number]) Current Condition History of Current Condition Onset Date Apr 2024 Current Complaints LBP History of Current Condition Was moving a mattress w/a friend and she tripped over the curb and fell back onto her back onto the pavement. 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 Remembers falling and bouncing almost straight up and felt back pain immediately. She has a Cervical issue in the past too. Later had issues at work feeling sick and having a protruded area at sternum. Did CT scan and found a bulge in disc. mom did have back issue also. Prior to this, didn't have back pain. Saw PT about 6 yeras ago for neck and has had injections that helped. DId get a gym membership and has been taking things pretty easy and just walking. She has had a knee and neck issues in the past that stopped her from running. TYpically likes to cycle, lift, and do stair stepper. Occ takes 800mg of ibupofen when it gets really bad. Denies symptoms down legs . Has torn meniscus on L knee when tries to walk and attempts to run, it flares up. Has been told she has a minor scoliosis Prior Treatments and Tests CT of abdomen: Bones: No aggressive osseous abnormality . L5-S1 disc bulge without significant spinal canal narrowing. IMPRESSION: Mild hepatomegaly; the left hepatic lobe extends below the xiphoid process. The uterus is enlarged, with heterogeneous enhancement. Findings may indicate diffuse adenomyosis. Treatment Goals Patient/Caregiver Goals Get back to working out, return to running, be able to squat and lift child and at work PT-OP-C Subjective Start: 08/08/24 14:04 Freq: Status: Active Protocol: Document 10/16/24 09:50 [facility] (Rec: 10/16/24 14:28 [facility] [id number]) OP-PT Subjective Patient Comments Patient Comments L5 sacralized and DJD and plan for MRI. . sleep is a little hard recently. It was getting better. Patient Reported Progress Same PT-OP-D Balance Start: 08/08/24 14:04 Freq: Status: Active Protocol: Document 08/12/24 09:49 [facility] (Rec: 08/12/24 10:48 [facility] [id number]) Balance Tests Single Limb Standing Single Limb- Right >30 sec but pain in back Single Limb- Left >30 but pain in back PT-OP-F Manual Assessment Start: 08/08/24 14:04 Freq: Status: Active Protocol: Document 08/12/24 09:49 [facility] (Rec: 08/12/24 10:48 [facility] [id number]) Manual Assessments Soft Tissue Assessment Soft Tissue Mobility Assessment inc tension R QL, and lat abdomen R PT-OP-G Mobility & Gait Start: 08/08/24 14:04 Freq: Status: Active Protocol: Document 08/12/24 09:49 [facility] (Rec: 08/12/24 10:48 [facility] [id number]) OP Gait Assessment Comments Gait Comments dec stance time on RLE and dec trunk motion PT-OP-J Posture/Palpation/Skin Start: 08/08/24 14:04 Freq: Status: Active Protocol: Document 10/16/24 09:50 [facility] (Rec: 10/16/24 14:28 [facility] [id number]) Posture Evaluation Mauri Postural Classification System Mauri Postural Classifications Posterior/Anterior Lumbar Protective Mechanism Left AP 0 Lumbar Protective Mechanism Right AP 0 Lumbar Protective Mechanism Left PA 0 Lumbar Protective Mechanism Right PA 0 PT-OP-K Range of Motion Start: 08/08/24 14:04 Freq: Status: Active Protocol: Document 08/12/24 09:49 [facility] (Rec: 08/12/24 10:48 [facility] [id number]) Lumbar Spine Range of Motion Lumbar Spine Active Percentage Flexion 30 Extension 25 Rotation Left 60 Rotation Right 50 Lateral Flexion Left 75 Lateral Flexion Right 75 Comments feels pain on R w/B SB; big stretch to back w/rot PT-OP-L Special Tests Start: 08/08/24 14:04 Freq: Status: Active Protocol: Document 08/12/24 09:49 [facility] (Rec: 08/12/24 10:48 [facility] [id number]) Special Tests Lumbar Spine Special Tests Straight Leg Raise Comments B positive Chester Test Results R positive hip flexor march Test Results L positive Slump Test Results positive B Other Special Tests Special Tests BP 116/64 PT-OP-M Strength Start: 08/08/24 14:04 Freq: Status: Active Protocol: Document 10/16/24 09:50 [facility] (Rec: 10/16/24 14:28 [facility] [id number]) Hip Strength Hip Manual Muscle Testing Right Flexion (L2) 3+ Fair+ Extension (S1) 3+ Fair+ Abduction 4 Good Adduction 3+ Fair+ External Rotation 4 Good Internal Rotation 4+ Good+ Left Flexion (L2) 3+ Fair+ Extension (S1) 3+ Fair+ Abduction 3+ Fair+ Adduction 3+ Fair+ External Rotation 4 Good Internal Rotation 4+ Good+ Comments pain in back B hip ext Knee Strength Knee Manual Muscle Testing R Flexion (S2) 5 Normal Extension (L3) 4+ Good+ L Flexion (S2) 5 Normal Extension (L3) 4 Good PT-OP-Q Treatments Start: 08/08/24 14:04 Freq: Status: Active Protocol: Document 10/16/24 09:50 [facility] (Rec: 10/16/24 14:28 [facility] [id number]) Therapeutic Exercises Supine Exercises pelvic tilt Reps/Minutes 6 core Supine Exercise Name 1. attempted alt LE ext 2. attempted SL drop 3. march Side bilateral Reps/Minutes 5 min Comments stopped d/t pain in back and unable to isolate spine w/o ext w/movement Prone Exercises plank Prone Exercise Name forearm and feet Side bilateral Reps/Minutes 20 sec Sidelying Exercises sideplank Sidelying Exercise Name forearm knees Side bilateral Reps/Minutes 30 sec Comments inc time for set up; tried full sideplank but unable to stabilize Other Exercises isometrics Other Exercise Name BLE MMT and LPM, VCT, EFT quadruped Other Exercise Name forearm and knees-alt hip ext Side bilateral Reps/Minutes 12 Comments VC and tactile cues for no trunk rot Manual Therapy Treatment Consent Patient gave verbal consent for manual Yes treatment Soft Tissue Mobilization LS paraspinals Body Location sacral multifidi and along SI, and lumbar paraspinals Mobilization Type Rolling Intensity/Depth Moderate Body Position Prone bilateral hips Body Location B sup glutes Mobilization Type Rolling,Sustained Pressure Body Position Prone Joint Mobilizations innominate Comments L caudal prone w/LTR sacrum Joint caual prone R and UPA R PT-OP-T Assessment and Plan Start: 08/08/24 14:04 Freq: Status: Active Protocol: Document 10/16/24 09:50 [facility] (Rec: 10/16/24 14:28 [facility] [id number]) Physical Therapy Assessment Goals activity Short Term Goal (STG) Pt will be able to squat w/o inc pain 09/16-can do reps but not hold and cannot do full range 10/16- no change STG Duration 11/09 Mobile Device Developer Goal (LTG) Pt will be able to lift child and return to working out w/o pain more than 10/04 09/16-no change-not going to gym yet d/t concern for pain and pain w/lifting child LTG Duration 12/02 posture Short Term Goal (STG) Pt will score at least 2/5 to show improved postural alignment STG Duration achieved 09/165 Shelter Goal (LTG) Pt will score at least 4/5 to show improved postural alignment LTG Duration 12/02 strength Short Term Goal (STG) Pt will be indep w/HEP 09/16-doing squats and some exercises recently 10/16-stretches and squats recently STG Duration 11/09 Mobile Device Developer Goal (LTG) Pt will score at least 3/5 on EFT and LPM in all planes and at least 4+/5 on all LE MMT B to show improved stability to allow greater ease w/activity. 09/16-improved LE strength, major core weakness still present 10/16-LE stronger but core still very weak LTG Duration 12/02 Assessment Summary Assessment Pt has made limited change since last PN d/t only seen 1x d/t cancellations. Pt has continued core weakness and was given HEP for core strength focus and encouraged on importance of working on this. In supine, unable to stabilize w/core exercises. She would benefit from cont PT for LBP to work on improving ability to function for work and home life. Physical Therapy Plan Frequency and Duration Frequency of Treatment 1x/Week Duration of treatment (weeks) 8 Plan of Care Start Date 10/16/24 Plan of Care End Date 12/11/24 Therapeutic Interventions Therapeutic Interventions Balance Training,Gait Training ,Home Exercise Program,Joint Mobilizations,Manual Therapy, Neuromuscular Re-education, Orthotic/Prosthetic Management ,Patient/Caregiver Education, Self-Care/Home Management,Soft Tissue Mobilization,Taping, Therapeutic Activities, Therapeutic Exercises Modalities Cold Pack/Ice Massage,Electric Stimulation,Hot Packs, Infrared Therapy,Traction- Mechanical,Ultrasound Next Visit Focus/Plan Next Note Type Treatment Note Next Visit Plan advance core as able and work on ability to squat; manual to sacrum and pelvis, consider traction/Estim PNF
--- NOTE | 2024-10-16 14:29 | PT.OPPOC ---
Physical, Occupational & Speech Therapy At [facility] Current Diagnoses Other intervertebral disc degeneration, lumbar region with discogenic back pain only (10/16/24) Visit Care Team Role Provider Type REYNALDO Brown Attending Provider Non-Staff Family Provider Primary Care Provider Referring Provider Specialty: Medical Address: [address] [place] [address], [place], [address] Email: Plan Of Care PT-OP-B Current Condition Start: 08/08/24 14:04 Freq: Status: Active Protocol: Document 08/12/24 09:49 [facility] (Rec: 08/12/24 10:48 [facility] [id number]) Current Condition History of Current Condition Onset Date Apr 2024 Current Complaints LBP History of Current Condition Was moving a mattress w/a friend and she tripped over the curb and fell back onto her back onto the pavement. 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 Remembers falling and bouncing almost straight up and felt back pain immediately. She has a Cervical issue in the past too. Later had issues at work feeling sick and having a protruded area at sternum. Did CT scan and found a bulge in disc. mom did have back issue also. Prior to this, didn't have back pain. Saw PT about 6 yeras ago for neck and has had injections that helped. DId get a gym membership and has been taking things pretty easy and just walking. She has had a knee and neck issues in the past that stopped her from running. TYpically likes to cycle, lift, and do stair stepper. Occ takes 800mg of ibupofen when it gets really bad. Denies symptoms down legs . Has torn meniscus on L knee when tries to walk and attempts to run, it flares up. Has been told she has a minor scoliosis Prior Treatments and Tests CT of abdomen: Bones: No aggressive osseous abnormality . L5-S1 disc bulge without significant spinal canal narrowing. IMPRESSION: Mild hepatomegaly; the left hepatic lobe extends below the xiphoid process. The uterus is enlarged, with heterogeneous enhancement. Findings may indicate diffuse adenomyosis. Treatment Goals Patient/Caregiver Goals Get back to working out, return to running, be able to squat and lift child and at work PT-OP-T Assessment and Plan Start: 08/08/24 14:04 Freq: Status: Active Protocol: Document 10/16/24 09:50 [facility] (Rec: 10/16/24 14:28 [facility] [id number]) Physical Therapy Assessment Goals activity Short Term Goal (STG) Pt will be able to squat w/o inc pain 09/16-can do reps but not hold and cannot do full range 10/16- no change STG Duration 11/09 Highballer Goal (LTG) Pt will be able to lift child and return to working out w/o pain more than 10/04 09/16-no change-not going to gym yet d/t concern for pain and pain w/lifting child LTG Duration 12/02 posture Short Term Goal (STG) Pt will score at least 2/5 to show improved postural alignment STG Duration achieved 09/16 10/30 Highballer Goal (LTG) Pt will score at least 4/5 to show improved postural alignment LTG Duration 12/02 strength Short Term Goal (STG) Pt will be indep w/HEP 09/16-doing squats and some exercises recently 10/16-stretches and squats recently STG Duration 11/09 Fpc Goal (LTG) Pt will score at least 3/5 on EFT and LPM in all planes and at least 4+/5 on all LE MMT B to show improved stability to allow greater ease w/activity. 09/16-improved LE strength, major core weakness still present 10/16-LE stronger but core still very weak LTG Duration 12/02 Assessment Summary Assessment Pt has made limited change since last PN d/t only seen 1x d/t cancellations. Pt has continued core weakness and was given HEP for core strength focus and encouraged on importance of working on this. In supine, unable to stabilize w/core exercises. She would benefit from cont PT for LBP to work on improving ability to function for work and home life. Physical Therapy Plan Frequency and Duration Frequency of Treatment 1x/Week Duration of treatment (weeks) 8 Plan of Care Start Date 10/16/24 Plan of Care End Date 12/11/24 Therapeutic Interventions Therapeutic Interventions Balance Training,Gait Training ,Home Exercise Program,Joint Mobilizations,Manual Therapy, Neuromuscular Re-education, Orthotic/Prosthetic Management ,Patient/Caregiver Education, Self-Care/Home Management,Soft Tissue Mobilization,Taping, Therapeutic Activities, Therapeutic Exercises Modalities Cold Pack/Ice Massage,Electric Stimulation,Hot Packs, Infrared Therapy,Traction- Mechanical,Ultrasound Next Visit Focus/Plan Next Note Type Treatment Note Next Visit Plan advance core as able and work on ability to squat; manual to sacrum and pelvis, consider traction/Estim PNF Plan of Care Dates Plan of Care Start Date 10/16/24 Plan of Care End Date 12/11/24 Electronically Signed by: Marissa Elise, PT 10/16/24 5180 If you are in agreement with this Plan of Care, please return a signed and dated copy. I have reviewed this Plan of Care and certify that the skilled therapy services above are required to meet the patient?s needs. Physician Signature Date Printed Name and Credentials Clinical Instructor Signature Printed Name and Credentials
--- NOTE | 2024-11-01 09:56 | PT-OP ANOTE ---
Phoned patient regarding no show, left message regarding no show policy. Also left order desk caller phone number and time and date of next physical therapy appointment.
--- NOTE | 2024-11-14 10:09 | PT.OPDS ---
Current Diagnoses Other intervertebral disc degeneration, lumbar region with discogenic back pain only (10/16/24) Visit Care Team Role Provider Type REYNALDO Brown Attending Provider Non-Staff Family Provider Primary Care Provider Referring Provider Specialty: Medical Address: [address], [place], [address] Email: Visit Number Visit Number 07/18 Discharge Summary PT-OP-B Current Condition Start: 08/08/24 14:04 Freq: Status: Active Protocol: Document 08/12/24 09:49 [facility] (Rec: 08/12/24 10:48 [facility] [id number]) Current Condition History of Current Condition Onset Date Apr 2024 Current Complaints LBP History of Current Condition Was moving a mattress w/a friend and she tripped over the curb and fell back onto her back onto the pavement. 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 Remembers falling and bouncing almost straight up and felt back pain immediately. She has a Cervical issue in the past too. Later had issues at work feeling sick and having a protruded area at sternum. Did CT scan and found a bulge in disc. mom did have back issue also. Prior to this, didn't have back pain. Saw PT about 6 yeras ago for neck and has had injections that helped. DId get a gym membership and has been taking things pretty easy and just walking. She has had a knee and neck issues in the past that stopped her from running. TYpically likes to cycle, lift, and do stair stepper. Occ takes 800mg of ibupofen when it gets really bad. Denies symptoms down legs . Has torn meniscus on L knee when tries to walk and attempts to run, it flares up. Has been told she has a minor scoliosis Prior Treatments and Tests CT of abdomen: Bones: No aggressive osseous abnormality . L5-S1 disc bulge without significant spinal canal narrowing. IMPRESSION: Mild hepatomegaly; the left hepatic lobe extends below the xiphoid process. The uterus is enlarged, with heterogeneous enhancement. Findings may indicate diffuse adenomyosis. Treatment Goals Patient/Caregiver Goals Get back to working out, return to running, be able to squat and lift child and at work PT-OP-C Subjective Start: 08/08/24 14:04 Freq: Status: Active Protocol: Document 10/16/24 09:50 [facility] (Rec: 10/16/24 14:28 [facility] [id number]) OP-PT Subjective Patient Comments Patient Comments L5 sacralized and DJD and plan for MRI. -03/04. sleep is a little hard recently. It was getting better. Patient Reported Progress Same PT-OP-D Balance Start: 08/08/24 14:04 Freq: Status: Active Protocol: Document 08/12/24 09:49 [facility] (Rec: 08/12/24 10:48 [facility] [id number]) Balance Tests Single Limb Standing Single Limb- Right >30 sec but pain in back Single Limb- Left >30 but pain in back PT-OP-F Manual Assessment Start: 08/08/24 14:04 Freq: Status: Active Protocol: Document 08/12/24 09:49 [facility] (Rec: 08/12/24 10:48 [facility] [id number]) Manual Assessments Soft Tissue Assessment Soft Tissue Mobility Assessment inc tension R QL, and lat abdomen R PT-OP-G Mobility & Gait Start: 08/08/24 14:04 Freq: Status: Active Protocol: Document 08/12/24 09:49 [facility] (Rec: 08/12/24 10:48 [facility] [id number]) OP Gait Assessment Comments Gait Comments dec stance time on RLE and dec trunk motion PT-OP-J Posture/Palpation/Skin Start: 08/08/24 14:04 Freq: Status: Active Protocol: Document 10/16/24 09:50 [facility] (Rec: 10/16/24 14:28 [facility] [id number]) Posture Evaluation Mauri Postural Classification System Mauri Postural Classifications Posterior/Anterior Lumbar Protective Mechanism Left AP 0 Lumbar Protective Mechanism Right AP 0 Lumbar Protective Mechanism Left PA 0 Lumbar Protective Mechanism Right PA 0 PT-OP-K Range of Motion Start: 08/08/24 14:04 Freq: Status: Active Protocol: Document 08/12/24 09:49 [facility] (Rec: 08/12/24 10:48 [facility] [id number]) Lumbar Spine Range of Motion Lumbar Spine Active Percentage Flexion 30 Extension 25 Rotation Left 60 Rotation Right 50 Lateral Flexion Left 75 Lateral Flexion Right 75 Comments feels pain on R w/B SB; big stretch to back w/rot PT-OP-L Special Tests Start: 08/08/24 14:04 Freq: Status: Active Protocol: Document 08/12/24 09:49 [facility] (Rec: 08/12/24 10:48 [facility] [id number]) Special Tests Lumbar Spine Special Tests Straight Leg Raise Comments B positive Chester Test Results R positive hip flexor march Test Results L positive Slump Test Results positive B Other Special Tests Special Tests BP 116/64 PT-OP-M Strength Start: 08/08/24 14:04 Freq: Status: Active Protocol: Document 10/16/24 09:50 [facility] (Rec: 10/16/24 14:28 [facility] [id number]) Hip Strength Hip Manual Muscle Testing Right Flexion (L2) 3+ Fair+ Extension (S1) 3+ Fair+ Abduction 4 Good Adduction 3+ Fair+ External Rotation 4 Good Internal Rotation 4+ Good+ Left Flexion (L2) 3+ Fair+ Extension (S1) 3+ Fair+ Abduction 3+ Fair+ Adduction 3+ Fair+ External Rotation 4 Good Internal Rotation 4+ Good+ Comments pain in back B hip ext Knee Strength Knee Manual Muscle Testing R Flexion (S2) 5 Normal Extension (L3) 4+ Good+ L Flexion (S2) 5 Normal Extension (L3) 4 Good PT-OP-T Assessment and Plan Start: 08/08/24 14:04 Freq: Status: Active Protocol: Document 11/14/24 10:08 [facility] (Rec: 11/14/24 10:09 [facility] [id number]) Physical Therapy Assessment Goals activity Short Term Goal (STG) Pt will be able to squat w/o inc pain 09/16-can do reps but not hold and cannot do full range 10/16- no change STG Duration 11/09 Director Of Student Affairs Goal (LTG) Pt will be able to lift child and return to working out w/o pain more than 10/04 09/16-no change-not going to gym yet d/t concern for pain and pain w/lifting child LTG Duration 310 posture Short Term Goal (STG) Pt will score at least 2/5 to show improved postural alignment STG Duration achieved 09/16 2 Director Of Student Affairs Goal (LTG) Pt will score at least 4/5 to show improved postural alignment LTG Duration 3/10 strength Short Term Goal (STG) Pt will be indep w/HEP 09/16-doing squats and some exercises recently 10/16-stretches and squats recently STG Duration 11/09 Correction Goal (LTG) Pt will score at least 3/5 on EFT and LPM in all planes and at least 4+/5 on all LE MMT B to show improved stability to allow greater ease w/activity. 09/16-improved LE strength, major core weakness still present 10/16-LE stronger but core still very weak LTG Duration 12/02 Assessment Summary Assessment Pt has made limited progress w/PT and has not attended frequent PT sessions recently. She no showed today's appt and cancelled the last 2 appointments and has only been seen 1x between Sep and Oct d /t frequent cancellations. She is DC d/t compliance contract and VM left and pt encouraged to ask for new referral for PT if ready and want to return . Physical Therapy Plan Discharge Physical Therapy Discharge Comments per compliance contract
== END 2024-11-21 09:02 | disposition home or self-care (01) ==
LOC: PHYS 09:45
PROVIDERS: Family Provider Nurse Practitioner Family; PCP Nurse Practitioner Family; Referring Provider Nurse Practitioner Family; Visit Provider Nurse Practitioner Family
DX: M51.360 Other intervertebral disc degeneration, lumbar region with discogenic back pain only (principal)
CPT/HCPCS: 97014; 97110; 97140; 97162; 97535; G0283

== ENCOUNTER 2024-10-21 09:45 | Outpatient (RCR) | payer OTHER, MEDICAID, SELFPAY ==
--- NOTE | 2024-09-09 10:29 | OT.OPPOC ---
Physical, Occupational & Speech Therapy At [facility] Gita Estrada [id number] 1980 Visit Care Team Role Provider Type REYNALDO Brown Attending Provider Non-Staff Family Provider Primary Care Provider Referring Provider Address: [address] [place] [address], [place], [address] Occupational Therapy Plan of Care OT Outpatient Adult Evaluation Start: 09/09/24 07:27 Freq: Status: Active Protocol: Document 09/09/24 07:27 RADHA (Rec: 09/09/24 10:28 RADHA [id number]) General Information - Adult Visit Information Visit Number 1 Plan of Care Dates 09/09/24 - 11/18/24 Insurance Information [employer], no pre -auth, max 24 PT/OT combined, 3 OT 09/24 Session Time Visit Start Date 09/09/24 Visit Start Time 08:15 Visit Stop Time 09:00 Setting Treatment Setting Outpatient Care Visit Type Note Type Initial Evaluation Referral Referring Physician NELSON Brown Reason for Referral B hand pain Identification Identification Confirmed Yes Identification Confirmed By name, MR Patient Questionnaires Quick Dash- Upper Extremity Quick Dash UE Score 38.7 Quick Dash UE Impairment 20 to 39% Impaired (Score 20- 39) Quick Dash- Work and Sports Modules Quick Dash W&S Score W 50 Quick Dash Work and Sport Impairment 40 to 59% Impaired (Score 40- 59) Goals Objective Measurements Objective Measurements Kapandgi retroposition R and L 3/4; Kapandgi opposition R and L 6/10 Director Corporate Communications: R 10, 12, 20 (avg 14#); L 20, 17, 25 (avg 20.7#) Pinch: lateral R 3#, L 3#; pincer R 4#, L 3#; 3 jaw R 3#, L 4# MMT: R elbow flex 4-, elbow ext 4, wrist flex 4-, wrist ext 3+, wrist radial dev 5, wrist ulnar dev 5; L elbow flex 4, elbow ext 4, wrist flex 4-, wrist ext 4-, wrist radial dev 5, wrist ulnar dev 5 Denise B -; Froments B -; Grind CMC + on L Treatment Treatment OT educated pt on adductor release due to decreased webspace and tightness in muscle. OT educated pt on HEP to release adductor space and improve retroposition. Short Term Goals Short Term Goals 1. Pt will be I with initial HEP. 2. Pt will demonstrate increased linter saw sharpener strength avg of 10# to assit in work task. 3. Pt will demonstrate increased pinch strength of 2# each to assist in work tasks. 4. Pt will demonstrate improved strength by 1/4 muscle grade for elbow and wrist. 5. Pt will report no pain at end of tx. [facility] Goals [facility] Goals 1. Pt will be I with advanced HEP. 2. Pt will demonstrate increased linter saw sharpener strength to within 10# of age related norms B. 3. Pt will demonstrate increased pinch strengths to within 5# of age related norms B. 4. Pt will demonstrate WNL strength for B elbow and wrists for improved home task. 5. Pt will report improved PSFS of at least 3 points for patients 3 priority tasks. Assessment/Plan Assessment Patient Response Good Rehabilitation Potential Excellent Impairments Identified ADLs,Body Mechanics, Coordination/Dexterity, Flexibility,Functional Activities,Pain,Weakness, Posture,Range of Motion, Meaningful Activities,Soft Tissue Mobility Treatment Assessment Pt is a 44 yo F referred by for skilled OT services due to pain in B hands. Pt reports that she initiated care for her B hand pain approximately a year ago. She was recently referred to an medical care evaluation specialist to evaluate a possible cortisone injection. Therapy was recommended instead. Pt is R hand dominant. Pt reports R wrist fx 2020, L wrist fx as child. Pt?s medical history is also significant for latex allergy, back pain and depression. 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 Pt is a mom of a 4 month old and 15 yo and reports she is ? always busy around the house.? Pt reports having ?throbbing pain without doing anything.? Pt c/o pain with work specific tasks, especially pain when opening/closing a jar, unscrewing a hard wine bottle, and releasing wine glasses after carrying them to her customers. With the last, pt reports her hands sometimes freeze. Pt reports recently trying to return to gym and would like to return to running, spinning, and lifting . During a recent PT session, pt had pain with plank and was unable to perform on open palm. Pt is seeing PT for herniated disc. Pt reports her handwriting is getting worse. Pt reports having a high pain tolerance. Pt describes thumb pain as throbbing. With opposition pt reports pain ? lights up? at thumb and throughout palmar area, R>L. Pt rates pain at 5/10 at worse . 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 Pt has decreased web space with R being more decreased than L. Pt has prominent thenar eminences B. Pt linter saw sharpener strength is more than 50# less than age and gender norms and her pinch strengths are more than 7# decreased compared to norms . Pt presents with significant limitations in her work and home life due to the pain in B hands. Skilled OT services are appropriate to address pt deficits in strength, muscle tightness, decreased ROM and to educate on activity modification to promote return toward PLOF. Home Exercise Program Issued Medbridge program for adductor release, web space release, and retroposition Plan Length of treatment (weeks) 10 Plan of Care Start Date 09/09/24 Plan of Care End Date 11/18/24 Comment 1-2x/wk Treatment Duration 45 Minutes Therapeutic Contents Active Range of Motion,Client Education,Functional Activities,Home Exercise Program,Joint Protection, Manual Therapy,Education, Neuromuscular Re-Education, Self-Care,Stretching/ Flexibility Activities, Therapeutic Activities, Therapeutic Exercises Patient Instruction Home Exercise Program,Plan of Care,Questions/Concerns Functional Wrist/Hand Scan Hand Side Sensory Assessment Sensory Profile2 Electronically Signed by: Kacy Patiño OT 09/09/24 1029 If you are in agreement with this Plan of Care, please return a signed and dated copy. I have reviewed this Plan of Care and certify that the skilled therapy services above are required to meet the patient?s needs. Physician Signature Date Printed Name and Credentials Clinical Instructor Signature Printed Name and Credentials
--- NOTE | 2024-09-16 13:17 | OT.OP.TRT ---
Visit Care Team Role Provider Type KRISTEN Brown Attending Provider Non-Staff Family Provider Primary Care Provider Referring Provider Specialty: Medical Address: [address] , [place], [address] Email: Occupational Therapy Treatment Note OT Outpatient Treatment Note - Adult Start: 09/09/24 07:27 Freq: Status: Active Protocol: Document 09/16/24 11:30 RAD[facility] (Rec: 09/16/24 11:43 RADHA [id number]) OT Outpatient Adult Treatment Note Session Time Visit Start Date 09/16/24 Visit Start Time 11:30 Visit Stop Time 12:15 Visit Information Visit Number 11/04- Plan of Care Dates 09/09/24 - 11/18/24 Insurance Information [employer], no pre -auth, max 24 PT/OT combined, 3 OT 09/24 Setting Treatment Setting Outpatient Care Visit Type Note Type Treatment Note - Subjective Identification Type Name Identification Reconciled With Medical Record Observations It started to really hurt when I had my daughter and had to do her bottles. After our last appointment, I realized that helping get my daughter dressed and her hair done is hard and hurts. That is probably one of the hardest things. Pt reports that at start of tx her pain in B hands is 4-5/10 - Objective Short Term Goals 1. Pt will be I with initial HEP. 2. Pt will demonstrate increased hatch supervisor strength avg of 10# to assist in work task. 3. Pt will demonstrate increased pinch strength of 2# each to assist in work tasks. 4. Pt will demonstrate improved strength by 1/4 muscle grade for elbow and wrist. 5. Pt will report no pain at end of tx. [facility] Goals 1. Pt will be I with advanced HEP. 2. Pt will demonstrate increased hatch supervisor strength to within 10# of age related norms B. 3. Pt will demonstrate increased pinch strengths to within 5# of age related norms B. 4. Pt will demonstrate WNL strength for B elbow and wrists for improved home task. 5. Pt will report improved PSFS of at least 3 points for patients 3 priority tasks. - Exercises 3 Descriptor retroposition: butterfly stretch x 3 min hold performed B 2 Descriptor web space: adductor release web space to web space 30 second hold followed by straightening fingers and pushing into web space for 30 second hold x5 1 Descriptor stablility: closed chain ball roll x 15 B 1DI rubber band x 30 B palmar abd with rubber band x 30 B EPB with rubber band x 30 B Manual Therapy Manual Therapy STM adductor release B thumb web space as tolerated - Assessment Patient Response to Treatment Good Rehabilitation Potential Good Impairments Identified ADLs,Body Mechanics, Coordination/Dexterity, Flexibility,Functional Activities,Pain,Weakness, Posture,Range of Motion, Meaningful Activities,Soft Tissue Mobility Assessment of Overall Progress Improving Assessment of Improvement Pt is pleasant and cooperative and tolerated tx well. Pt needs vcs and occasional tc to maintain correct position and to initiate exercise with correct muscle. Pt demonstrated her HEP, but requires moderate cues to correct these exercises. OT will continue to assess pt's I with correct performance of HEP. OT suggested that pt use a jar/bottle rouge mixer to assist with opening containers at work. Pt says she will purchase one to aid in this frequent work task and to reduce to work load on her thumbs. OT educated pt on general hand and thumb joint protection. Pt verbalized understanding. Cont per established POC. Reviewed with Patient/Caregiver Home Exercise Program Patient/Caregiver Understanding Good - Plan Therapy Recommendations Continue with Current Program Amount of Therapy Recommended 2-3 Months Comment 1-2x/wk Length of Session 45 Minutes Therapeutic Contents Active Range of Motion,Client Education,Functional Activities,Home Exercise Program,Joint Protection, Manual Therapy,Education, Neuromuscular Re-Education, Self-Care,Stretching/ Flexibility Activities, Therapeutic Activities, Therapeutic Exercises
--- NOTE | 2024-09-23 08:32 | OT.OP.TRT ---
Visit Care Team Role Provider Type REYNALDO Brown Attending Provider Non-Staff Family Provider Primary Care Provider Referring Provider Specialty: Medical Address: [address] [facility], [place], [address] Email: Occupational Therapy Treatment Note OT Outpatient Treatment Note - Adult Start: 09/09/24 07:27 Freq: Status: Active Protocol: Document 09/23/24 08:31 [facility] (Rec: 09/23/24 08:32 [facility] [id number]) OT Outpatient Adult Treatment Note Visit Type Note Type Administrative Note General Information General Information Pt cancelled todays appointment. OT called and left message with pt to try to verify if she has any insurance changes moving forward in the coming year. OT asked pt to call back if there has been a change so that authorization can be obtained. - - - - -
--- NOTE | 2024-09-30 09:26 | OT.OP.TRT ---
Visit Care Team Role Provider Type REYNALDO Brown Attending Provider Non-Staff Family Provider Primary Care Provider Referring Provider Specialty: Medical Address: [address] [facility], [place], [address] Email: Occupational Therapy Treatment Note OT Outpatient Treatment Note - Adult Start: 09/09/24 07:27 Freq: Status: Active Protocol: Document 09/30/24 09:25 [facility] (Rec: 09/30/24 09:26 [facility] [id number]) OT Outpatient Adult Treatment Note Visit Type Note Type Administrative Note General Information General Information Pt cancelled appointment today . No reason given. - - - - -
--- NOTE | 2024-10-07 10:44 | OT.OP.TRT ---
Visit Care Team Role Provider Type KRISTEN Brown Attending Provider Non-Staff Family Provider Primary Care Provider Referring Provider Specialty: Medical Address: [address] , [place], [address] Email: Occupational Therapy Treatment Note OT Outpatient Treatment Note - Adult Start: 09/09/24 07:27 Freq: Status: Active Protocol: Document 10/07/24 09:50 [facility] (Rec: 10/07/24 10:44 [email or web address] [id number]) OT Outpatient Adult Treatment Note Session Time Visit Start Date 10/07/24 Visit Start Time 09:50 Visit Stop Time 10:30 Visit Information Visit Number 12/02- Plan of Care Dates 09/09/24 - 11/18/24 Insurance Information [employer], no pre -auth, max 24 PT/OT combined, 3 OT 09/24 Setting Treatment Setting Outpatient Care Visit Type Note Type Administrative Note - Subjective Identification Type Name Identification Reconciled With Medical Record Observations Pt reports that her thumbs have been hurting less. 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 Pt reports she is getting help as needed to open jars at work.She reports that on occasion when she picks up the phone and texts she'll notice increased pain on R thumb. Today she drove for about 20 minutes that she had some throbbing in her R thumb. Pt reports performing some of her HEP, she has not been performing rubber band exercises but is performing exercises to improve web space. Pt reports a little bit of tightness on the L following tx. Pt rates at 3-4/10 pain. - Objective Short Term Goals 1. Pt will be I with initial HEP. 2. 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 3. Pt will demonstrate increased pinch strength of 2# each to assist in work tasks. 4. Pt will demonstrate improved strength by 1/4 muscle grade for elbow and wrist. 5. Pt will report no pain at end of tx. Half-Way Goals 1. Pt will be I with advanced HEP. 2. Pt will demonstrate increased grain oilseed or pasture farm worker strength to within 10# of age related norms B. 3. Pt will demonstrate increased pinch strengths to within 5# of age related norms B. 4. Pt will demonstrate WNL strength for B elbow and wrists for improved home task. 5. Pt will report improved PSFS of at least 3 points for patients 3 priority tasks. - Exercises 3 Descriptor retroposition: butterfly stretch x 3 min hold performed B 2 Descriptor web space: adductor release web space to web space 30 second hold followed by straightening fingers and pushing into web space for 30 second hold x5 1 Descriptor stablility: closed chain ball roll 15x B 1DI rubber band x 30 B palmar abd with rubber band x 30 B EPB with rubber band x 30 B Manual Therapy Manual Therapy STM adductor release B thumb web space as tolerated - Assessment Patient Response to Treatment Good Rehabilitation Potential Good Impairments Identified ADLs,Body Mechanics, Coordination/Dexterity, Flexibility,Functional Activities,Pain,Weakness, Posture,Range of Motion, Meaningful Activities,Soft Tissue Mobility Assessment of Overall Progress Improving Assessment of Improvement Pt continues to be pleasant and cooperative and tolerates tx well. Pt needs min vc/tc to perform retroposition mobilization with correct form as well as her other HEP exercises. OT will continue to reassess pt's I with these exercises. Pt tolerated the exercises well and performed with good form and pace after initial vc/tc for correct initial position during today' s tx. Pt had fewer complaints of discomfort at start of tx. Pt is progressing well per established POC. Cont per POC. Reviewed with Patient/Caregiver Home Exercise Program Patient/Caregiver Understanding Good - Plan Therapy Recommendations Continue with Current Program Amount of Therapy Recommended 2-3 Months Comment 1-2x/wk Length of Session 45 Minutes Therapeutic Contents Active Range of Motion,Client Education,Functional Activities,Home Exercise Program,Joint Protection, Manual Therapy,Education, Neuromuscular Re-Education, Self-Care,Stretching/ Flexibility Activities, Therapeutic Activities, Therapeutic Exercises
--- NOTE | 2024-10-21 10:36 | OT.OP.TRT ---
Visit Care Team Role Provider Type KRISTEN BrownBC Attending Provider Non-Staff Family Provider Primary Care Provider Referring Provider Specialty: Medical Address: [address], [place], [address] Email: Occupational Therapy Treatment Note OT Outpatient Treatment Note - Adult Start: 09/09/24 07:27 Freq: Status: Active Protocol: Document 10/21/24 09:49 [facility] (Rec: 10/21/24 10:36 [facility] [id number]) OT Outpatient Adult Treatment Note Session Time Visit Start Date 10/21/24 Visit Start Time 09:45 Visit Stop Time 10:25 Visit Information Visit Number 01/02- Plan of Care Dates 09/09/24 - 11/18/24 Insurance Information [employer], no pre -auth, max 24 PT/OT combined, 3 OT 09/24 Setting Treatment Setting Outpatient Care Visit Type Note Type Treatment Note - Subjective Identification Type Name Identification Reconciled With Medical Record Observations They are feeling ok. We had a situation with our sink. I had to take it apart and get it unclogged, but I couldn't put it back together because my wrist really hurt with the twisting motion. I feel like getting Ami dressed is going smoothly. The regular stuff is good. During wrist flexion exercise pt reports 6/ 10 p! in R wrist on radial side, pt reports that it lessens with a few minutes of rest. - Objective Short Term Goals 1. Pt will be I with initial HEP. 2. Pt will demonstrate increased volunteer manager strength avg of 10# to assist in work task. 3. Pt will demonstrate increased pinch strength of 2# each to assist in work tasks. 4. Pt will demonstrate improved strength by 1/4 muscle grade for elbow and wrist. 5. Pt will report no pain at end of tx. Steel Plate Printer Goals 1. Pt will be I with advanced HEP. 2. Pt will demonstrate increased volunteer manager strength to within 10# of age related norms B. 3. Pt will demonstrate increased pinch strengths to within 5# of age related norms B. 4. Pt will demonstrate WNL strength for B elbow and wrists for improved home task. 5. Pt will report improved PSFS of at least 3 points for patients 3 priority tasks. - Exercises 4 Descriptor B wrist strengthenin# wrist flexion 15x wrist extension 15x 3 Descriptor retroposition: butterfly stretch x 3 min hold performed B 2 Descriptor web space: adductor release web space to web space 30 second hold followed by straightening fingers and pushing into web space for 30 second hold x5 1 Descriptor stablility: closed chain ball roll x 0 1DI rubber band x 30 B palmar abd with rubber band x 30 B EPB with rubber band x 30 B Manual Therapy Manual Therapy STM adductor release B thumb web space as tolerated - Assessment Patient Response to Treatment Good Rehabilitation Potential Good Impairments Identified ADLs,Body Mechanics, Coordination/Dexterity, Flexibility,Functional Activities,Pain,Weakness, Posture,Range of Motion, Meaningful Activities,Soft Tissue Mobility Assessment of Overall Progress Improving Assessment of Improvement Pt continues to be pleasant and cooperative and appears to be motivated for improved use of B UEs. At start of session, pt's L web space with reduced ROM compared to R. Pt benefits from STM as well as web space to web space stretch . Pt requires min vc and demonstration to perform butterfly stretch for improved retroposition and min vc to initiate rubber band exercises with correct form. After initial initiation pt is able to maintain correct form with exercises. Pt reports pain with wrist flexion on R side, otherwise pt tolerates tx well . Cont per established POC. Reviewed with Patient/Caregiver Home Exercise Program Patient/Caregiver Understanding Good - Plan Therapy Recommendations Continue with Current Program Amount of Therapy Recommended 2-3 Months Comment 1-2x/wk Length of Session 45 Minutes Therapeutic Contents Active Range of Motion,Client Education,Functional Activities,Home Exercise Program,Joint Protection, Manual Therapy,Education, Neuromuscular Re-Education, Self-Care,Stretching/ Flexibility Activities, Therapeutic Activities, Therapeutic Exercises
--- NOTE | 2024-11-04 10:59 | OT.OP.TRT ---
Visit Care Team Role Provider Type REYNALDO Brown Attending Provider Non-Staff Family Provider Primary Care Provider Referring Provider Specialty: Medical Address: [address], [place], [address] Email: Occupational Therapy Treatment Note OT Outpatient Treatment Note - Adult Start: 09/09/24 07:27 Freq: Status: Active Protocol: Document 11/04/24 10:54 [facility] (Rec: 11/04/24 10:29 [facility] [id number]) OT Outpatient Adult Treatment Note Visit Type Note Type Administrative Note General Information General Information Pt no-showed for appointment. OT called at 1055 to discuss with pt. Pt did not answer and OT left message. OT asked pt to reschedule her appointment for 11/06 if she is able and left front office number. - - - -
--- NOTE | 2024-11-18 10:10 | OT.OP.DC ---
Visit Care Team Role Provider Type KRISTEN BrownBC Attending Provider Non-Staff Family Provider Primary Care Provider Referring Provider Address: [address] [place] [address], [place], [address] Email: OT Outpatient OT Outpatient Adult Evaluation Start: 09/09/24 07:27 Freq: Status: Active Protocol: Document 09/09/24 07:27 [facility] (Rec: 09/09/24 10:28 [facility] [id number]) General Information - Adult Visit Information Visit Number 1 Plan of Care Dates 09/09/24 - 11/18/24 Insurance Information [employer], no pre -auth, max 24 PT/OT combined, 3 OT 09/24 Session Time Visit Start Date 09/09/24 Visit Start Time 08:15 Visit Stop Time 09:00 Setting Treatment Setting Outpatient Care Visit Type Note Type Initial Evaluation Referral Referring Physician NELSON Brown Reason for Referral B hand pain Identification Identification Confirmed Yes Identification Confirmed By name, MR Patient Questionnaires Quick Dash- Upper Extremity Quick Dash UE Score 38.7 Quick Dash UE Impairment 20 to 39% Impaired (Score 20- 39) Quick Dash- Work and Sports Modules Quick Dash W&S Score W 50 Quick Dash Work and Sport Impairment 40 to 59% Impaired (Score 40- 59) Goals Objective Measurements Objective Measurements Kapandgi retroposition R and L 3/4; Kapandgi opposition R and L 6/10 Media Strategist: R 10, 12, 20 (avg 14#); L 20, 17, 25 (avg 20.7#) Pinch: lateral R 3#, L 3#; pincer R 4#, L 3#; 3 jaw R 3#, L 4# MMT: R elbow flex 4-, elbow ext 4, wrist flex 4-, wrist ext 3+, wrist radial dev 5, wrist ulnar dev 5; L elbow flex 4, elbow ext 4, wrist flex 4-, wrist ext 4-, wrist radial dev 5, wrist ulnar dev 5 Denise B -; Froments B -; Grind CMC + on L Treatment Treatment OT educated pt on adductor release due to decreased webspace and tightness in muscle. OT educated pt on HEP to release adductor space and improve retroposition. Short Term Goals Short Term Goals 1. Pt will be I with initial HEP. 2. Pt will demonstrate increased yard hand strength avg of 10# to assit in work task. 3. Pt will demonstrate increased pinch strength of 2# each to assist in work tasks. 4. Pt will demonstrate improved strength by 1/4 muscle grade for elbow and wrist. 5. Pt will report no pain at end of tx. Senior Care Goals Adult Crossing Guard Goals 1. Pt will be I with advanced HEP. 2. Pt will demonstrate increased yard hand strength to within 10# of age related norms B. 3. Pt will demonstrate increased pinch strengths to within 5# of age related norms B. 4. Pt will demonstrate WNL strength for B elbow and wrists for improved home task. 5. Pt will report improved PSFS of at least 3 points for patients 3 priority tasks. Assessment/Plan Assessment Patient Response Good Rehabilitation Potential Excellent Impairments Identified ADLs,Body Mechanics, Coordination/Dexterity, Flexibility,Functional Activities,Pain,Weakness, Posture,Range of Motion, Meaningful Activities,Soft Tissue Mobility Treatment Assessment Pt is a 44 yo F referred by for skilled OT services due to pain in B hands. Pt reports that she initiated care for her B hand pain approximately a year ago. She was recently referred to an software applications specialist to evaluate a possible cortisone injection. Therapy was recommended instead. Pt is R hand dominant. Pt reports R wrist fx 2020, L wrist fx as child. Pt?s medical history is also significant for latex allergy, back pain and depression. 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 Pt is a mom of a 4 month old and 15 yo and reports she is ? always busy around the house.? Pt reports having ?throbbing pain without doing anything.? Pt c/o pain with work specific tasks, especially pain when opening/closing a jar, unscrewing a hard wine bottle, and releasing wine glasses after carrying them to her customers. With the last, pt reports her hands sometimes freeze. Pt reports recently trying to return to gym and would like to return to running, spinning, and lifting . During a recent PT session, pt had pain with plank and was unable to perform on open palm. Pt is seeing PT for herniated disc. Pt reports her handwriting is getting worse. Pt reports having a high pain tolerance. Pt describes thumb pain as throbbing. With opposition pt reports pain ? lights up? at thumb and throughout palmar area, R>L. Pt rates pain at 5/10 at worse . Patient specific functional scale (PSFS): Driving ( holding the steering wheel 30 minutes) 5/10, Opening jars/ bottles work /10, accelerator systems director /10 Pt presents with pain in B palmar surfaces of her thumb especially at thenar eminence and base of CMC. Pt has decreased web space with R being more decreased than L. Pt has prominent thenar eminences B. Pt yard hand strength is more than 50# less than age and gender norms and her pinch strengths are more than 7# decreased compared to norms . Pt presents with significant limitations in her work and home life due to the pain in B hands. Skilled OT services are appropriate to address pt deficits in strength, muscle tightness, decreased ROM and to educate on activity modification to promote return toward PLOF. Home Exercise Program Issued Medbridge program for adductor release, web space release, and retroposition Plan Length of treatment (weeks) 10 Plan of Care Start Date 09/09/24 Plan of Care End Date 11/18/24 Comment 1-2x/wk Treatment Duration 45 Minutes Therapeutic Contents Active Range of Motion,Client Education,Functional Activities,Home Exercise Program,Joint Protection, Manual Therapy,Education, Neuromuscular Re-Education, Self-Care,Stretching/ Flexibility Activities, Therapeutic Activities, Therapeutic Exercises Patient Instruction Home Exercise Program,Plan of Care,Questions/Concerns Functional Wrist/Hand Scan Hand Side Sensory Assessment Sensory Profile2 OT Outpatient Treatment Note - Adult Start: 09/09/24 07:27 Freq: Status: Active Protocol: Document 11/18/24 10:01 [facility] (Rec: 11/18/24 10:10 [facility] [id number]) OT Outpatient Adult Treatment Note Visit Information Plan of Care Dates 09/09/24 - 11/18/24 Insurance Information [employer], no pre -auth, max 24 PT/OT combined, 3 OT 09/24 Setting Treatment Setting Outpatient Care Visit Type Note Type Discharge Summary - - Objective Short Term Goals 1. Pt will be I with initial HEP. 2. Pt will demonstrate increased yard hand strength avg of 10# to assist in work task. 3. Pt will demonstrate increased pinch strength of 2# each to assist in work tasks. 4. Pt will demonstrate improved strength by 1/4 muscle grade for elbow and wrist. 5. Pt will report no pain at end of tx. Senior Care Goals 1. Pt will be I with advanced HEP. 2. Pt will demonstrate increased yard hand strength to within 10# of age related norms B. 3. Pt will demonstrate increased pinch strengths to within 5# of age related norms B. 4. Pt will demonstrate WNL strength for B elbow and wrists for improved home task. 5. Pt will report improved PSFS of at least 3 points for patients 3 priority tasks. - - Assessment Rehabilitation Potential Good Impairments Identified ADLs,Body Mechanics, Coordination/Dexterity, Flexibility,Functional Activities,Pain,Weakness, Posture,Range of Motion, Meaningful Activities,Soft Tissue Mobility Progress Towards Goals Appropriate for Discharge Assessment of Improvement Pt has been treated by skilled OT services 3 times since initial evaluation, cancelling 6 appointments during current POC. OT has called and left messages with pt several times to suggest rescheduling cancelled appointments. The last appointment pt attended was 10/21/24. At that appointment, pt reported being able to assist her daughter in getting dressed without less difficulty and reported that the ?regular stuff is good?. She had an incident recently of needing to unclog her sink and c/o of significant pain resulting from the twisting motion. During that tx, OT noted decreased web space with L > R , with pt benefiting from STM and web space stretching. Pt required min A to perform her HEP correctly. Her initial HEP focused on improving retroposition and improving her web space. OT issued additional exercises for thumb stability. No additional objective information is available at this time. Pt has been non-compliant with regular attendance of therapy sessions necessary for sustained progress and improved functional use of B hands. D/C pt from skilled OT services at this time. - Plan Therapy Recommendations Discharge from Occupational Therapy
== END 2024-11-19 09:46 | disposition home or self-care (01) ==
LOC: OT 09:45
PROVIDERS: Family Provider Nurse Practitioner Family; PCP Nurse Practitioner Family; Referring Provider Nurse Practitioner Family; Visit Provider Nurse Practitioner Family
DX: M79.642 Pain in left hand (principal); M79.641 Pain in right hand
CPT/HCPCS: 97110; 97140; 97165

== ENCOUNTER 2025-05-06 01:33 | Emergency (ER) | payer OTHER, SELFPAY ==
[2025-05-06 01:36] VITALS: BP 113/72; PULSE 64; RESP 17; TEMP 36.7; O2SAT 97; BMI 22.3
--- NOTE | 2025-05-06 01:59 | PC.NURSE ---
Lab in room drawing blood
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
[2025-05-06 03:05] VITALS: BP 119/75; PULSE 69; RESP 16; O2SAT 99
== END 2025-05-06 03:07 | disposition home or self-care (01) ==
PROVIDERS: Emergency Provider Emergency Medicine; Family Provider Nurse Practitioner Family; PCP Nurse Practitioner Family
DX: Z02.89 Encounter for other administrative examinations (principal)
CPT/HCPCS: 99281

== ENCOUNTER → 2025-07-01 13:09 | Outpatient (CLI) | payer OTHER, SELFPAY ==
--- NOTE | 2025-07-01 13:10 | DI.MG.S_ITS ---
MM screening mammo BI: 07/01/2025. BI-RADS: 2 CLINICAL: 45-year old female for bilateral screening mammogram. Tyrer-Cuzick lifetime risk of 41.9%. Current reported family history of breast cancer: maternal grandmother and mother. The patient had a prior left breast biopsy. PRIOR EXAMS: 08/30/2019, 04/10/2019, 10/24/2018, 03/09/2018, 03/06/2018, 08/10/2017, 07/27/2017, 07/24/2017. MAMMOGRAPHY TECHNIQUE: 2D and 3D (tomosynthesis) digital mammographic views obtained, with additional images as needed for full coverage. Current study was also evaluated with a Computer Aided Detection (CAD) system. DENSITY D. The breasts are extremely dense, which lowers the sensitivity of mammography. MAMMOGRAPHY FINDINGS Right: No suspicious mass, asymmetry, microcalcification, or other abnormality seen. Left: Biopsy markers present on the left. There are no suspicious masses, calcifications, or other findings in the breast. IMPRESSION: Right * No evidence of malignancy. Left * No evidence of malignancy with benign findings. RECOMMENDATIONS Bilateral * According to the Tyrer-Cuzick Risk Assessment Model, based on the information provided your patient has a greater than 20% lifetime risk for developing breast cancer. Consider supplemental screening with breast MRI and participation in a high risk screening program. * Annual screening mammography. OVERALL ASSESSMENT CATEGORY BI-RADS-2: Benign. The [employer] recommends annual screening mammography beginning at age 40 for women with average risk of breast cancer. ELECTRONICALLY SIGNED: Radha Shelton M.D. on 07/02/2025 at 08:37:12 AM PT Interpreting Station ID: [id number]
== END ==
PROVIDERS: Family Provider Nurse Practitioner Family; PCP Nurse Practitioner Family; Referring Provider Nurse Practitioner Family; Visit Provider Nurse Practitioner Family
DX: Z12.31 Encounter for screening mammogram for malignant neoplasm of breast (principal); Z80.3 Family history of malignant neoplasm of breast; R92.343 Mammographic extreme density, bilateral breasts
CPT/HCPCS: 77063; 77067

== ENCOUNTER → 2025-07-06 16:40 | Outpatient (CLI) | payer OTHER, SELFPAY ==
--- NOTE | 2025-07-06 16:41 | DI.RAD.S_ITS ---
PROCEDURE: XR HAND RT MIN 3V INDICATIONS: Right hand pain TECHNIQUE: 3 views of the hand(s) acquired. COMPARISON: None. FINDINGS: Bones: No fractures or dislocations. Carpal bones are normally aligned. No suspicious bony lesions. Soft tissues: No suspicious soft tissue calcifications. IMPRESSION: No acute bony abnormality. Dictated by: Lacho Deleon M.D. on 07/06/2025 at 16:06 Approved by: Lacho Deleon M.D. on 07/06/2025 at 16:08
== END ==
PROVIDERS: Family Provider Nurse Practitioner Family; PCP Nurse Practitioner Family; Referring Provider Registered Nurse; Visit Provider Registered Nurse
DX: M79.641 Pain in right hand (principal)
CPT/HCPCS: 73130

== ENCOUNTER → 2025-09-06 14:22 | Outpatient (CLI) | payer OTHER, SELFPAY ==
[2025-09-06 15:13] LABS: Influenza A - CEPHEID Flu A NEGATIVE (NEGATIVE); Influenza B - CEPHEID Flu B NEGATIVE (NEGATIVE)
[2025-09-06 15:43] LABS: COVID-19 CEPHEID 4-PLEX PCR Negative (Negative)
== END ==
PROVIDERS: Family Provider Nurse Practitioner Family; PCP Nurse Practitioner Family; Visit Provider Registered Nurse
DX: R05.1 Acute cough (principal)
CPT/HCPCS: 87637